=== PATIENT | male | born 1950 | race Caucasian/White ===

== ENCOUNTER 2019-03-15 09:57 | Inpatient (IN) | payer MEDICARE, BC ==
[2019-03-15] VITALS (32 sets, daily range): BP systolic 104–141; BP diastolic 59–82; PULSE 76–87; RESP 7–53; Ht 188 cm; Wt 106.9 kg
[~2019-03-15] VITALS: Ht 188 cm; Wt 106.9 kg
[~2019-03-15 09:57] MED LIST: CEFAZOLIN 1 GM INJ ONE; EPHEDrine 25 MG/5 ML SYG ONE; FENTAnyl 50 MCG/ML VIAL ONE; METOCLOPRAMIDE 10 MG INJ ONE; MIDAZOLAM 1 MG/ML 2 ML INJ ONE; ONDANSETRON 4 MG INJ ONE; PHENYLephrine (100 MCG/ML) 10ML SYG ONE; PROPOFOL 200 MG INJ ONE; ROCURONIUM 50 MG INJ ONE; SUCCINYLCHOLINE CHLORIDE 100 MG/5 ML SYG IV ONE
[2019-03-15] MEDS ORDERED: VANCOMYCIN 1 GM 250 ML IVPB ONE (10:00)
[2019-03-15] MEDS ORDERED: LACTATED RINGER'S 1,000 ML IV* ONE (10:00)
[2019-03-15] MEDS ORDERED: LORA1TAB PO (10:57)
[2019-03-15] MEDS ORDERED: PROV100 PO (10:58)
[2019-03-15] MEDS ORDERED: LEVO125T71 PO (10:58)
[2019-03-15] MEDS ORDERED: LUN2 PO (10:59)
[2019-03-15] MEDS ORDERED: ARIP5TAB14 PO (10:59)
[2019-03-15] MEDS ORDERED: DEXL60CA2 PO (11:00)
[2019-03-15] MEDS ORDERED: SIMV20TA PO (11:00)
[2019-03-15] MEDS ORDERED: GABA-526 PO ×2 (11:01)
[2019-03-15] MEDS ORDERED: MIRT30TA5 PO (11:02)
[2019-03-15] MEDS ORDERED: DOCU100T PO (11:03)
[2019-03-15] MEDS ORDERED: OXYC-431 PO (11:03)
[2019-03-15] MEDS ORDERED: TEST75GE TD (11:06)
[2019-03-15] MEDS ORDERED: SURGIFOAM POWDER 1 GM KIT ONE (11:56)
[2019-03-15] MEDS ORDERED: GELATIN SIZE 100 SPONGE ONE (11:56)
[2019-03-15] MEDS ORDERED: POLYMYXIN/BACITRACIN 1L IRRIG ONE (11:56)
[2019-03-15] MEDS ORDERED: THROMBIN (BOVINE) 5,000 UNIT VIAL TP ONE (11:56)
[2019-03-15] MEDS ORDERED: BUPIVACAINE 0.25%/EPI (SDV) 30 ML INJ ONE (11:56)
--- NOTE | 2019-03-15 12:08 | PREAC ---
Date/Time of Note Date/Time of Note DATE: 03/15/19 TIME: 12:04 Anesthesia Eval and Record Evaluation Time Pre-Procedure Interview DATE: 03/15/19 TIME: 12:04 Age 68 Sex male NPO: 8 hrs Preoperative diagnosis Degenerative Scoliosis and Stenosis Lumbar Planned procedure Lateral Approach Lumbar L2-3, L3-4 instrumented Fusion Past Medical History Past Medical History: Includes Cardio: Dyslipidemia Endo: Hypothyroid Pulm: Sleep Apnea, Home CPAP, Asthma Recreational drugs: Marijuana Surgery & Anesthesia Issues No known issue Meds Anticoagulation: No Beta Jorge A within 24 hr: No Reason Beta Jorge A not given: Pt. 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, 60.75 MG TD DAILY, EA 03/15/19 Docusate Sodium* (Dok*) 100 Mg Tablet, 100 MG PO BID, #60 CAP 03/15/19 Oxycodone HCl/Acetaminophen (Oxycodone-Acetaminophen 10-325) 1 Each Tablet, 1 EACH PO EVERY 4-6 HOURS PRN for PAIN LEVEL 1-5, TAB 03/15/19 Mirtazapine* (Mirtazapine*) 30 Mg Tablet, 30 MG PO HS, TAB 03/15/19 Gabapentin* (Gabapentin*) 600 Mg Tablet, 1800 MG PO QHS, #90 TAB 03/15/19 Gabapentin* (Gabapentin*) 600 Mg Tablet, 600 MG PO QAM, #60 TAB 03/15/19 Simvastatin* (Zocor*) 20 Mg Tablet, 20 MG PO QHS, #30 TAB 03/15/19 Dexlansoprazole (Dexilant) 60 Mg Dennis., 60 MG PO DAILY, #30 CAP 03/15/19 Eszopiclone (Lunesta) 2 Mg Tab, 2 MG PO HS PRN for INSOMNIA, TAB 03/15/19 Aripiprazole* (Abilify*) 5 Mg Tab, 5 MG PO DAILY, #30 TAB 03/15/19 Levothyroxine Sodium* (Levoxyl*) 125 Mcg Tablet, 125 MCG PO BEFORE BREAKFAST, #30 TAB 03/15/19 Modafinil* (Provigil*) 100 Mg Tablet, 400 MG PO QAM, TAB 03/15/19 Lorazepam* (Lorazepam*) 1 Mg Tablet, 1 MG PO TID PRN for ANXIETY, #30 TAB 03/15/19 Meds reviewed: Yes Allergies Coded Allergies: Penicillins (Verified Allergy, Severe, 03/15/19) adhesive tape (Verified Allergy, Unknown, 03/15/19) Allergies Reviewed: Yes Labs/Studies Labs Reviewed: Reviewed by anesthesiologist test: N/A Studies: ECG (n/a), CXR (n/a) Pre-procedure Exam Last vitals Vital Signs Date Temp Pulse Resp B/P (MAP) Pulse Ox O2 O2 Flow FiO2 Time Delivery Rate 03/15/19 97.9 16 123/68 95 11:35 (86) Airway: Adequate mouth opening, Adequate thyromental dist Mallampati: Mallampati II Teeth: Normal Lung: Normal Heart: Normal ASA Physical Status ASA physical status: 3 Emergency: None Planned Anesthetic General/MAC: ETT Planned Pain Management Parenteral pain med Pre-operative Attestations Prior to commencing anesthesia and surgery, the patient was re-evaluated, there was verification of: *The patient's identity *The results of appropriate recent lab work and preoperative vital signs *The above evaluation not changing prior to induction *Anesthetic plan, risk benefits, alternative and complications discussed with patient/family; questions answered; patient/family understands, accepts and wishes to proceed. DORI MONTANA MD Mar 15, 2019 12:08
[2019-03-15] MEDS: D5W-0.45 NACL + KCL 20 MEQ 1,000 ML IV SCH ×2 (12:37→20:37)
--- NOTE | 2019-03-15 12:37 | HPN ---
Date/Time of Note Date/Time of Note DATE: 03/15/19 TIME: 12:37 Interval H&P Admission Note Pt. seen H&P reviewed: No system changes ATA CAMP PA-C Mar 15, 2019 12:37
[2019-03-15] MEDS ORDERED: VANCOMYCIN 1 GM (PMX) 250 ML IVPB SCH (13:00)
[2019-03-15] MEDS ORDERED: NALOXONE (0.4 MG/ML) INJ IV PRN (13:00)
[2019-03-15] MEDS ORDERED: CEPASTAT LOZENGE MT PRN (13:00)
[2019-03-15] MEDS ORDERED: HYDROmorphONE 0.5 MG/0.5 ML SYG IV PRN (13:00)
[2019-03-15] MEDS ORDERED: BISACODYL 10 MG SUPP PR PRN (13:00)
[2019-03-15] MEDS ORDERED: DIPHENHYDRAMINE 25 MG CAP PO PRN (13:00)
[2019-03-15] MEDS ORDERED: ACETAMINOPHEN 325 MG TAB PO PRN (13:00)
[2019-03-15] MEDS ORDERED: ONDANSETRON 4 MG INJ IV PRN ×2 (13:00→15:00)
[2019-03-15] MEDS ORDERED: DIPHENHYDRAMINE 50 MG INJ IV PRN ×2 (13:00→15:00)
[2019-03-15] MEDS ORDERED: AL HYDROX/MG HYDROX/SIMETH 30 ML CUP PO PRN (13:00)
[2019-03-15] MEDS ORDERED: FENTAnyl 50 MCG/ML VIAL ONE (13:02)
[2019-03-15] MEDS ORDERED: LABETALOL HCL 20MG INJ ONE (13:02)
[2019-03-15] MEDS ORDERED: KETOROLAC 30 MG INJ ONE (14:22)
[2019-03-15] MEDS ORDERED: DEXAMETHASONE 4 MG/ML 5 ML INJ ONE (14:22)
[2019-03-15] MEDS ORDERED: ONDANSETRON 4 MG INJ ONE (14:22)
[2019-03-15] MEDS ORDERED: METOCLOPRAMIDE 10 MG INJ ONE (14:22)
[2019-03-15] MEDS ORDERED: SUGAMMADEX SODIUM 200 MG/2 ML VIAL IV ONE (14:48)
[2019-03-15] MEDS ORDERED: EPHEDrine SULFATE 50 MG/5 ML SYG IV PRN (15:00)
[2019-03-15] MEDS ORDERED: MEPERIDINE 25 MG INJ IV PRN (15:00)
[2019-03-15] MEDS ORDERED: METOCLOPRAMIDE 10 MG INJ IV PRN (15:00)
[2019-03-15] MEDS ORDERED: HYDROmorphONE 1 MG/5 ML IV SYRINGE IV PRN ×3 (15:00)
[2019-03-15] MEDS ORDERED: hydrALAzine 20 MG INJ IV PRN (15:00)
[2019-03-15] MEDS ORDERED: FENTAnyl 50 MCG/ML VIAL IV PRN ×3 (15:00)
[2019-03-15] MEDS ORDERED: LABETALOL HCL 20MG INJ IV PRN (15:00)
[2019-03-15] MEDS ORDERED: OXYCODONE/ACETAMINOPHEN (5/325) TAB PO PRN (15:00)
--- NOTE | 2019-03-15 15:42 | SIPON ---
Date/Time of Note Date/Time of Note DATE: 03/15/19 TIME: 15:41 Operative Report Preoperative Diagnosis Degenerative lumbar scoliosis Postoperative Diagnosis Degenerative lumbar scoliosis Operation/Procedure Performed Lumbar fusion Surgeon see signature line ortho assistant Janie Sanchez Anesthesia: general Estimated blood loss: 10 - 50 ml's Transfusion Required none Specimen Disc Grafts/Implants Cage Complications none SUNDEEP OROPEZA MD Mar 15, 2019 15:42
--- NOTE | 2019-03-15 16:01 | PAC ---
Date/Time of Note Date/Time of Note DATE: 03/15/19 TIME: 15:58 Post-Anesthesia Notes Post-Anesthesia Note Last documented vital signs Vital Signs Date Temp Pulse Resp B/P (MAP) Pulse Ox O2 O2 Flow FiO2 Time Delivery Rate 03/15/19 98.0 52 16 136/83 98 face mask 8 L 15:49 (92) 03/15/19 16 123/68 95 11:35 (86) Activity: WNL Respiratory function: WNL Cardiovascular function: WNL Mental status: Baseline Pain reasonably controlled: Yes Hydration appropriate: Yes Nausea/Vomiting absent: Yes DORI MONTANA MD Mar 15, 2019 16:01
--- NOTE | 2019-03-15 16:20 | OPR ---
DATE OF OPERATION: 03/15/2019 PREOPERATIVE DIAGNOSES: Degenerative lumbar scoliosis and stenosis with radiculopathy. POSTOPERATIVE DIAGNOSES: Degenerative lumbar scoliosis and stenosis with radiculopathy. OPERATION PERFORMED: 1. Anterior lumbar interbody fusion at L2-3 and L3-4. 2. Placement of intervertebral mechanical device at L2-3 and L3-4. 3. Use of allograft. 4. Use of C-arm fluoroscopy with interpretation without radiologist present. 5. Intraoperative neuromonitoring. PRIMARY SURGEON: John Mirza MD FINANCIAL REPORTING ADVISOR: Janie Sanchez PA-C NEED FOR MEN'S DESIGNER: During this spinal surgical procedure, my culture media laboratory assistant was used to retract and protect the spinal nerves and dural sac. My culture media laboratory assistant also employed the suction catheters to evacuate blood from the surgical field to improve visualization of the neural structures. The culture media laboratory assistant was medically necessary to facilitate the completion of the surgery in a safe and expeditious manner. [facility] regulations, as well as hospital bylaws, preclude the use of non-licensed health care personnel, such as operating room technicians, to perform these functions. IMPLANTS: 1. RTI Fortilink 11 x 50 x 22 mm cage with 6 degrees lordosis x2. 2. Biosphere. FINDINGS: Neuromonitoring at the start of the case revealed bilateral L2 amplitudes normal, bilateral L3 down 20%, bilateral L4 down 40%, bilateral L5 down 70%, bilateral S1 down 80% posterior tibia bilateral down 20%. At the end of the case posterior tibia remained unchanged. L3 remained unchanged. L4 was down 40%, L5 down 50%, S1 down 50% bilaterally. The patient had degenerative scoliosis with listhesis. ESTIMATED BLOOD LOSS: 50 mL. DRAINS: None. SPECIMENS: L2-L3 and L3-L4 disk sent. COMPLICATIONS OF PROCEDURES: None. ANESTHESIOLOGIST: Dr. Trever Gutierrez. TYPE OF ANESTHESIA: General. INDICATIONS FOR PROCEDURE: This 68-year-old gentleman with chronic low back pain in setting of degenerative scoliosis. He failed nonoperative measures; therefore, I recommended that he undergo the above procedure. Preoperatively, I discussed risks, benefits, and alternatives. He understood and wished to proceed. DESCRIPTION OF PROCEDURE IN DETAIL: The patient identified in the preoperative holding area, given vancomycin antibiotic, taken to the operating room where he was placed under general anesthesia. Neuromonitoring leads were placed, sequential compressive devices were applied. Ross catheter was induced. Remote intraoperative neuromonitoring was performed by Dr. Miller from 1120 hours until 1530 hours, to include SSEP, MEP, and EMG performed by [employer]. The patient was placed in the operative table in right lateral decubitus position. The patient was secured to the table and table was flexed to allow access to the spine. The left lateral flank was prepped, draped in usual fashion. Incision was then made laterally over the L2-3 and L3-4 levels. I then dissected down into the retroperitoneal space. I identified the psoas muscle. I placed a dilator through the psoas onto the L3-L4 level. I took imaging to confirm the placement. I used neuromonitoring along the way to make sure that there were no neural elements in the field. I then placed the appropriate size retractor after placing dilators. I then cleaned off the annulus and visually confirmed that there were no neural elements in the field. I also probed the area to confirm this as well. I then made an annulotomy followed by radical diskectomy. I prepared the endplates, placed various trials. I then chose appropriate graft height. I then took the appropriate size cage within which I placed allograft and impacted intervertebral mechanical device into the L3-4 level to complete the anterior lumbar interbody fusion at L3-4. I then turned my attention to the L2-3 level and repeated the procedure. Once a radical diskectomy was completed, I placed various trials and chose the appropriate graft height. I then took the appropriate size cage within which I placed allograft and I impacted intervertebral mechanical device into the L2-3 level to complete the anterior lumbar interbody fusion at L2-L3. Once the hardware was in place, I took AP and lateral images and I was happy with this hardware and alignment of the spine. I then irrigated the wound. Hemostasis was achieved. The retractors were removed. I closed the wound in layers. I closed the deep fascia with #1 Vicryl stitch. I closed the second layer of deep fascia with #1 Vicryl stitch. I closed subcutaneous tissue with a 2-0 Vicryl suture, 4-0 Monocryl closure was then performed. Dermabond was then applied. The patient then awakened from anesthesia and taken to the recovery in stable condition. Lap, sponge and needle counts were correct x2. There were no apparent complications during the procedure. The patient will be admitted to the orthopedic gutierrez for routine postoperative care. He should return to the operating room on 03/16/2019 for stage II. Dictated By: JOHN LEONARDO/LAITH Conf#: [id number] DID#: [id number] MTDD
[2019-03-15] MEDS: HYDROmorphONE 0.2 MG/ML PCA IV SCH (16:54)
--- NOTE | 2019-03-15 18:35 | CONS ---
Assessment/Plan Assessment/Plan Problems: (1) S/P lumbar and lumbosacral fusion by anterior technique Onset Date: ~ 03/15/2019 Status: Acute Comment: He is postop and doing well without evidence of surgical complications. Pending probably in the morning is a posterior approach fusion. At this time he is stable to proceed. (2) Lumbar spinal stenosis Status: Chronic Comment: Being resolved with surgery per Qualifiers: Qualified Codes: M48.062 - Spinal stenosis, lumbar region with neurogenic claudication (3) Anxiety disorder Status: Chronic Comment: Presently well controlled. Qualifiers: Qualified Codes: F41.1 - Generalized anxiety disorder (4) Dysthymia Status: Chronic Comment: Presently well controlled. (5) Chronic pain syndrome Status: Chronic Comment: Postop analgesia is doing well. (6) Testicular hypofunction Status: Chronic Comment: When he is after the second surgery will go ahead and give him a dosage testosterone supply in 8 to carry him through the procedures (7) Hyperlipidemia Status: Chronic Comment: Continue statin therapy Qualifiers: Qualified Codes: E78.00 - Pure hypercholesterolemia, unspecified (8) Acquired hypothyroidism Status: Chronic Comment: Continue replacement therapy (9) Obstructive sleep apnea Status: Chronic Comment: Noted. Consultation Date/Type/Reason Admit Date/Time Mar 15, 2019 at 09:57 Date of Consultation: Mar 15, 2019 Type of Consult Internal medicine Reason for Consultation Assistance with medical issues after surgery Requesting Provider: SUNDEEP OROPEZA MD Date/Time of Note DATE: 03/15/19 TIME: 18:25 Hx of Present Illness Gregarious and charming 68-year-old right-handed male admitted electively for lumbar spinal fusion. This is being done in 2 stages with the anterior approach first followed by the posterior approach during the same hospitalization. Patient is seen postoperatively. At this time he reports he is doing without complaints. Constitutional: no complaints (No fevers chills or sweats) Eyes: no complaints ENT: no complaints Respiratory: no complaints (No cough no wheezing no shortness of breath) Cardiovascular: no complaints (Chest pains no palpitations no PND no orthopnea) Gastrointestinal: no complaints Genitourinary: no complaints Musculoskeletal: back pain Skin: no complaints Neurologic: no complaints (Able to move his lower extremities) Endocrine: no complaints Lymphatic: no complaints Psychological: anxiety Past Medical History Medical History: GERD, high cholesterol, hypothyroid, other (Lumbar spinal stenosis; chronic pain syndrome; anxiety disorder with dysthymia; posttraumatic stress disorder; testicular hypofunction; benign prostatic hypertrophy) Home Meds Reported Medications Testosterone* (Androgel*) 1.62%-75gm Gel.punch press setter, 60.75 MG TD DAILY, EA 03/15/19 Docusate Sodium* (Dok*) 100 Mg Tablet, 100 MG PO BID, #60 CAP 03/15/19 Oxycodone HCl/Acetaminophen (Oxycodone-Acetaminophen 10-325) 1 Each Tablet, 1 EACH PO EVERY 4-6 HOURS PRN for PAIN LEVEL 1-5, TAB 03/15/19 Mirtazapine* (Mirtazapine*) 30 Mg Tablet, 30 MG PO HS, TAB 03/15/19 Gabapentin* (Gabapentin*) 600 Mg Tablet, 1800 MG PO QHS, #90 TAB 03/15/19 Gabapentin* (Gabapentin*) 600 Mg Tablet, 600 MG PO QAM, #60 TAB 03/15/19 Simvastatin* (Zocor*) 20 Mg Tablet, 20 MG PO QHS, #30 TAB 03/15/19 Dexlansoprazole (Dexilant) 60 Mg Cap.mp, 60 MG PO DAILY, #30 CAP 03/15/19 Eszopiclone (Lunesta) 2 Mg Tab, 2 MG PO HS PRN for INSOMNIA, TAB 03/15/19 Aripiprazole* (Abilify*) 5 Mg Tab, 5 MG PO DAILY, #30 TAB 03/15/19 Levothyroxine Sodium* (Levoxyl*) 125 Mcg Tablet, 125 MCG PO BEFORE BREAKFAST, #30 TAB 03/15/19 Modafinil* (Provigil*) 100 Mg Tablet, 400 MG PO QAM, TAB 03/15/19 Lorazepam* (Lorazepam*) 1 Mg Tablet, 1 MG PO TID PRN for ANXIETY, #30 TAB 03/15/19 Medications Medications; AndroGel; Abilify 5 mg daily; vitamin C 1 g daily; aspirin 325 mg a day; vitamin D 5000 units a day; vitamin B12 500 mcg p.o. daily; Dexilant 60 mg once a day; gabapentin 2400 mg nightly; levothyroxine 125 mcg once a day; simvastatin 20 mg once a day; Current Medications Potassium Chloride/Dextrose/ Sod Cl 1,000 ml @ 100 mls/hr Q10H IV ; Start 03/15/19 at 12:37 Hydromorphone HCl (Dilaudid) 0.2 mg Q1H PRN IV .BREAKTHROUGH PAIN; Start 03/15/19 at 13:00 Ondansetron HCl (Zofran Inj) 4 mg Q6H PRN IV NAUSEA/VOMITING; Start 03/15/19 at 13:00 Bisacodyl (Dulcolax Supp) 10 mg DAILY PRN MT .CONSTIPATION; Start 03/15/19 at 13:00 Docusate Sodium (Colace) 100 mg BID PO ; Start 03/15/19 at 21:00 Al Hydrox/Mg Hydrox/Simethicone (Mag-Al Plus) 15 ml Q6H PRN PO .CO NSTIPATION/DYSPEPSIA; Start 03/15/19 at 13:00 Acetaminophen (Tylenol Tab) 650 mg Q4H PRN PO TORRES OR TEMP GREATER THAN 101.3F; Start 03/15/19 at 13:00 Phenol (Cepastat Lozenge) 1 lozenge PRN PRN MT .SORE THROAT; Start 03/15/19 at 13:00 Diphenhydramine HCl (Benadryl) 25 mg Q6H PRN PO .ITCHING; Start 03/15/19 at 13:00 Diphenhydramine HCl (Benadryl) 25 mg Q6H PRN IV .ITCHING; Start 03/15/19 at 13:00 Naloxone HCl (Narcan) 0.2 mg Q2M PRN IV .RR 8 BREATHS/MIN OR LESS; Start 03/15/19 at 13:00 Hydromorphone HCl (Dilaudid VIBRATING SCREEN OPERATOR) VIBRATING SCREEN OPERATOR to be started in PACU Q4PCA IV Last administered on 03/15/19at 16:54; Admin Dose 6 MG; Start 03/15/19 at 13:00 Hydromorphone HCl (Dilaudid) 0.2 mg PACU PRN IV MILD PAIN 1-3; Start 03/15/19 at 15:00; Stop 03/15/19 at 21:00 Hydromorphone HCl (Dilaudid) 0.4 mg PACU PRN IV MOD PAIN 4-6; Start 03/15/19 at 15:00; Stop 03/15/19 at 21:00 Hydromorphone HCl (Dilaudid) 0.6 mg PACU PRN IV SEVERE PAIN 7-10; Start 03/15/19 at 15:00; Stop 03/15/19 at 21:00 Fentanyl (Sublimaze) 25 mcg PACU ORDER PRN IV MILD PAIN 1-3; Start 03/15/19 at 15:00; Stop 03/15/19 at 21:00 Fentanyl (Sublimaze) 50 mcg PACU ORDER PRN IV MOD PAIN 4-6 Last administered on 03/15/19at 16:45; Admin Dose 50 MCG; Start 03/15/19 at 15:00; Stop 03/15/19 at 21:00 Fentanyl (Sublimaze) 75 mcg PACU ORDER PRN IV SEVERE PAIN 7-10; Start 03/15/19 at 15:00; Stop 03/15/19 at 21:00 Oxycodone/ Acetaminophen (Percocet (5/ 325)) 1 tab PACU ORDER PRN PO .PAIN 1-5; Start 03/15/19 at 15:00; Stop 03/15/19 at 21:00 Ondansetron HCl (Zofran Inj) 4 mg PACU ORDER PRN IV NAUSEA/VOMITING Last administered on 03/15/19at 16:44; Admin Dose 4 MG; Start 03/15/19 at 15:00; Stop 03/15/19 at 21:00 Metoclopramide HCl (Reglan) 10 mg PACU ORDER PRN IV NAUSEA/VOMITING; Start 03/15/19 at 15:00; Stop 03/15/19 at 21:00 Labetalol HCl (Labetalol) 5 mg PACU ORDER PRN IV HIGH BLOOD PRESSURE; Start 03/15/19 at 15:00; Stop 03/15/19 at 21:00 Hydralazine HCl (Apresoline) 5 mg PACU ORDER PRN IV HIGH BLOOD PRESSURE; Start 03/15/19 at 15:00; Stop 03/15/19 at 21:00 Ephedrine Sulfate 5 mg PACU ORDER PRN IV BLOOD PRESSURE SUPPORT; Start 03/15/19 at 15:00; Stop 03/15/19 at 21:00 Meperidine HCl (Demerol) 25 mg PACU ORDER PRN IV .RIGORS Last administered on 03/15/19at 16:15; Admin Dose 25 MG; Start 03/15/19 at 15:00; Stop 03/15/19 at 21:00 Diphenhydramine HCl (Benadryl) 25 mg PACU ORDER PRN IV .PRURITUS; Start 03/15/19 at 15:00; Stop 03/15/19 at 21:00 Vancomycin HCl 250 ml @ 125 mls/hr Q12H IVPB ; Start 03/15/19 at 23:00; Stop 03/16/19 at 12:59 Allergies: Coded Allergies: Penicillins (Verified Allergy, Severe, 03/15/19) adhesive tape (Verified Allergy, Unknown, 03/15/19) Past Surgical History Past Surgical Hx: other (That is post TURP; status post left shoulder replacement therapy 2017 status post right shoulder replacement October 2018; status post rhinoplasty; status post hernia repair) Family History Significant Family History: no pertinent family hx Social History Tired [employer] x7 years; 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; lives with a spouse Alcohol Use: occasionally Smoking Status: Never smoker Drug Use: none Exam/Review of Systems Exam Vitals Vital Signs Date Temp Pulse Resp B/P (MAP) Pulse Ox O2 O2 Flow FiO2 Time Delivery Rate 03/15/19 97.6 80 18 125/63 94 17:26 (83) 03/15/19 Nasal 3.0 17:09 Cannula Constitutional: alert, oriented Head: normocephalic, atraumatic Eyes: nl conjunctiva, EOMI, nl lids, nl sclera Neck: supple, non-tender Respiratory: clear to auscultation, normal air movement Cardiovascular: regular rate and rhythm, nl pulses Gastrointestinal: soft, nl liver, spleen, non-tender Extremities: normal pulses Neurological: DRINKING WATER TECHNICIAN II-XII intact, nl mental status, nl speech, nl strength Medications Medication Current Medications Potassium Chloride/Dextrose/ Sod Cl 1,000 ml @ 100 mls/hr Q10H IV ; Start 03/15/19 at 12:37 Hydromorphone HCl (Dilaudid) 0.2 mg Q1H PRN IV .BREAKTHROUGH PAIN; Start 03/15/19 at 13:00 Ondansetron HCl (Zofran Inj) 4 mg Q6H PRN IV NAUSEA/VOMITING; Start 03/15/19 at 13:00 Bisacodyl (Dulcolax Supp) 10 mg DAILY PRN MT .CONSTIPATION; Start 03/15/19 at 13:00 Docusate Sodium (Colace) 100 mg BID PO ; Start 03/15/19 at 21:00 Al Hydrox/Mg Hydrox/Simethicone (Mag-Al Plus) 15 ml Q6H PRN PO .CONSTIPATION/DYSPEPSIA; Start 03/15/19 at 13:00 Acetaminophen (Tylenol Tab) 650 mg Q4H PRN PO TORRES OR TEMP GREATER THAN 101.3F; Start 03/15/19 at 13:00 Phenol (Cepastat Lozenge) 1 lozenge PRN PRN MT .SORE THROAT; Start 03/15/19 at 13:00 Diphenhydramine HCl (Benadryl) 25 mg Q6H PRN PO .ITCHING; Start 03/15/19 at 13:00 Diphenhydramine HCl (Benadryl) 25 mg Q6H PRN IV .ITCHING; Start 03/15/19 at 13:00 Naloxone HCl (Narcan) 0.2 mg Q2M PRN IV .RR 8 BREATHS/MIN OR LESS; Start 03/15/19 at 13:00 Hydromorphone HCl (Dilaudid VIBRATING SCREEN OPERATOR) VIBRATING SCREEN OPERATOR to be started in PACU Q4PCA IV Last administered on 03/15/19at 16:54; Admin Dose 6 MG; Start 03/15/19 at 13:00 Hydromorphone HCl (Dilaudid) 0.2 mg PACU PRN IV MILD PAIN 1-3; Start 03/15/19 at 15:00; Stop 03/15/19 at 21:00 Hydromorphone HCl (Dilaudid) 0.4 mg PACU PRN IV MOD PAIN 4-6; Start 03/15/19 at 15:00; Stop 03/15/19 at 21:00 Hydromorphone HCl (Dilaudid) 0.6 mg PACU PRN IV SEVERE PAIN 7-10; Start 03/15/19 at 15:00; Stop 03/15/19 at 21:00 Fentanyl (Sublimaze) 25 mcg PACU ORDER PRN IV MILD PAIN 1-3; Start 03/15/19 at 15:00; Stop 03/15/19 at 21:00 Fentanyl (Sublimaze) 50 mcg PACU ORDER PRN IV MOD PAIN 4-6 Last administered on 03/15/19at 16:45; Admin Dose 50 MCG; Start 03/15/19 at 15:00; Stop 03/15/19 at 21:00 Fentanyl (Sublimaze) 75 mcg PACU ORDER PRN IV SEVERE PAIN 7-10; Start 03/15/19 at 15:00; Stop 03/15/19 at 21:00 Oxycodone/ Acetaminophen (Percocet (5/ 325)) 1 tab PACU ORDER PRN PO .PAIN 1-5; Start 03/15/19 at 15:00; Stop 03/15/19 at 21:00 Ondansetron HCl (Zofran Inj) 4 mg PACU ORDER PRN IV NAUSEA/VOMITING Last administered on 03/15/19at 16:44; Admin Dose 4 MG; Start 03/15/19 at 15:00; Stop 03/15/19 at 21:00 Metoclopramide HCl (Reglan) 10 mg PACU ORDER PRN IV NAUSEA/VOMITING; Start 03/15/19 at 15:00; Stop 03/15/19 at 21:00 Labetalol HCl (Labetalol) 5 mg PACU ORDER PRN IV HIGH BLOOD PRESSURE; Start 03/15/19 at 15:00; Stop 03/15/19 at 21:00 Hydralazine HCl (Apresoline) 5 mg PACU ORDER PRN IV HIGH BLOOD PRESSURE; Start 03/15/19 at 15:00; Stop 03/15/19 at 21:00 Ephedrine Sulfate 5 mg PACU ORDER PRN IV BLOOD PRESSURE SUPPORT; Start 03/15/19 at 15:00; Stop 03/15/19 at 21:00 Meperidine HCl (Demerol) 25 mg PACU ORDER PRN IV .RIGORS Last administered on 03/15/19at 16:15; Admin Dose 25 MG; Start 03/15/19 at 15:00; Stop 03/15/19 at 21:00 Diphenhydramine HCl (Benadryl) 25 mg PACU ORDER PRN IV .PRURITUS; Start 03/15/19 at 15:00; Stop 03/15/19 at 21:00 Vancomycin HCl 250 ml @ 125 mls/hr Q12H IVPB ; Start 03/15/19 at 23:00; Stop 03/16/19 at 12:59 JAGUAR GRAVES MD Mar 15, 2019 18:35
[2019-03-15] MEDS: DOCUSATE SODIUM 100 MG CAP PO SCH (20:37)
[2019-03-15] MEDS ORDERED: DOCUSATE SODIUM 100 MG CAP PO SCH (21:00)
[2019-03-15] MEDS ORDERED: ZOLPIDEM 5 MG TAB PO PRN (23:00)
[2019-03-15] MEDS: GABAPENTIN 300 MG CAP PO SCH (23:03)
[2019-03-15] MEDS: MIRTAZAPINE 15 MG TAB PO SCH (23:03)
[2019-03-15] MEDS: VANCOMYCIN 1 GM (PMX) 250 ML IVPB SCH (23:04)
[2019-03-15] MEDS: ATORVASTATIN 10 MG TAB PO SCH (23:57)
[2019-03-16] VITALS (25 sets, daily range): BP systolic 95–169; BP diastolic 55–77; PULSE 64–107; RESP 15–19
[2019-03-16] MEDS: HYDROmorphONE 0.2 MG/ML PCA IV SCH ×3 (03:40→22:32)
[2019-03-16] MEDS: PANTOPRAZOLE (EC) 40 MG TAB PO SCH (04:44)
[2019-03-16] MEDS: LEVOTHYROXINE 125 MCG TAB PO SCH (04:45)
[2019-03-16] MEDS ORDERED: DESFLURANE 15 MIN ONE (07:00)
[2019-03-16] MEDS ORDERED: SURGIFOAM POWDER 1 GM KIT ONE ×2 (07:02→12:12)
[2019-03-16] MEDS ORDERED: GELATIN SIZE 100 SPONGE ONE (07:02)
[2019-03-16] MEDS ORDERED: BUPIVACAINE 0.25%/EPI (SDV) 30 ML INJ ONE (07:03)
[2019-03-16] MEDS ORDERED: CA CHLORIDE (GM) 10% 10 ML INJ ONE (07:03)
[2019-03-16] MEDS ORDERED: HEPARIN 1000 UNITS/ML 10 ML INJ ONE (07:03)
[2019-03-16] MEDS ORDERED: THROMBIN (BOVINE) 5,000 UNIT VIAL TP ONE ×3 (07:03→12:13)
[2019-03-16] MEDS ORDERED: CEFAZOLIN 1 GM INJ ONE ×2 (07:03→07:09)
[2019-03-16] MEDS ORDERED: POLYMYXIN/BACITRACIN 1L IRRIG ONE (07:03)
--- NOTE | 2019-03-16 07:03 | PREAC ---
Date/Time of Note Date/Time of Note DATE: 03/16/19 TIME: 07:01 Anesthesia Eval and Record Evaluation Time Pre-Procedure Interview DATE: 03/16/19 TIME: 07:01 Age 68 Sex male NPO: 8 hrs Preoperative diagnosis L2-S1 DISC DISEASE , DEGENERATIVE SCOLIOSIS Planned procedure ALIF L4-S1 AND POSTERIOR INSTRUMENTED FUSION L2-S1 Past Medical History Past Medical History: Includes Cardio: Dyslipidemia Pulm: Sleep Apnea, Home CPAP, Asthma GI: GERD Psych: Depression, Anxiety Surgery & Anesthesia Issues No known issue Meds Anticoagulation: No Beta Jorge A within 24 hr: No Reason Beta Jorge A not given: Pt. not on B-Jorge A Reported Medications Testosterone* (Androgel*) 1.62%-75gm Gel.cns, 60.75 MG TD DAILY, EA 03/15/19 Docusate Sodium* (Dok*) 100 Mg Tablet, 100 MG PO BID, #60 CAP 03/15/19 Oxycodone HCl/Acetaminophen (Oxycodone-Acetaminophen 10-325) 1 Each Tablet, 1 EACH PO EVERY 4-6 HOURS PRN for PAIN LEVEL 1-5, TAB 03/15/19 Mirtazapine* (Mirtazapine*) 30 Mg Tablet, 30 MG PO HS, TAB 03/15/19 Gabapentin* (Gabapentin*) 600 Mg Tablet, 1800 MG PO QHS, #90 TAB 03/15/19 Gabapentin* (Gabapentin*) 600 Mg Tablet, 600 MG PO QAM, #60 TAB 03/15/19 Simvastatin* (Zocor*) 20 Mg Tablet, 20 MG PO QHS, #30 TAB 03/15/19 Dexlansoprazole (Dexilant) 60 Mg Dennis., 60 MG PO DAILY, #30 CAP 03/15/19 Eszopiclone (Lunesta) 2 Mg Tab, 2 MG PO HS PRN for INSOMNIA, TAB 03/15/19 Aripiprazole* (Abilify*) 5 Mg Tab, 5 MG PO DAILY, #30 TAB 03/15/19 Levothyroxine Sodium* (Levoxyl*) 125 Mcg Tablet, 125 MCG PO BEFORE BREAKFAST, #30 TAB 03/15/19 Modafinil* (Provigil*) 100 Mg Tablet, 400 MG PO QAM, TAB 03/15/19 Lorazepam* (Lorazepam*) 1 Mg Tablet, 1 MG PO TID PRN for ANXIETY, #30 TAB 03/15/19 Current Medications Potassium Chloride/Dextrose/ Sod Cl 1,000 ml @ 100 mls/hr Q10H IV Last administered on 03/15/19at 20:37; Admin Dose 100 MLS/HR; Start 03/15/19 at 12:37 Hydromorphone HCl (Dilaudid) 0.2 mg Q1H PRN IV .BREAKTHROUGH PAIN; Start 03/15/19 at 13:00 Ondansetron HCl (Zofran Inj) 4 mg Q6H PRN IV NAUSEA/VOMITING; Start 03/15/19 at 13:00 Bisacodyl (Dulcolax Supp) 10 mg DAILY PRN DE .CONSTIPATION; Start 03/15/19 at 13:00 Docusate Sodium (Colace) 100 mg BID PO Last administered on 03/15/19at 20:37; Admin Dose 100 MG; Start 03/15/19 at 21:00 Al Hydrox/Mg Hydrox/Simethicone (Mag-Al Plus) 15 ml Q6H PRN PO .CONSTIPATION/DYSPEPSIA; Start 03/15/19 at 13:00 Acetaminophen (Tylenol Tab) 650 mg Q4H PRN PO TORRES OR TEMP GREATER THAN 101.3F; Start 03/15/19 at 13:00 Phenol (Cepastat Lozenge) 1 lozenge PRN PRN MT .SORE THROAT Last administered on 03/15/19at 20:37; Admin Dose 1 LOZENGE; Start 03/15/19 at 13:00 Diphenhydramine HCl (Benadryl) 25 mg Q6H PRN PO .ITCHING; Start 03/15/19 at 13:00 Diphenhydramine HCl (Benadryl) 25 mg Q6H PRN IV .ITCHING; Start 03/15/19 at 13:00 Naloxone HCl (Narcan) 0.2 mg Q2M PRN IV .RR 8 BREATHS/MIN OR LESS; Start 03/15/19 at 13:00 Hydromorphone HCl (Dilaudid DIESEL POWER SHOVEL OPERATOR) DIESEL POWER SHOVEL OPERATOR to be started in PACU Q4PCA IV Last administered on 03/16/19at 03:40; Admin Dose 6 MG; Start 03/15/19 at 13:00 Vancomycin HCl 250 ml @ 125 mls/hr Q12H IVPB Last administered on 03/15/19at 23:04; Admin Dose 125 MLS/HR; Start 03/15/19 at 23:00; Stop 03/16/19 at 12:59 Aripiprazole (Abilify) 5 mg DAILY PO ; Start 03/16/19 at 09:00 Gabapentin (Neurontin) 1,800 mg QHS PO Last administered on 03/15/19at 23:03; Admin Dose 1,800 MG; Start 03/15/19 at 21:00 Gabapentin (Neurontin) 600 mg QAM PO ; Start 03/16/19 at 09:00 Levothyroxine Sodium (Synthroid) 125 mcg BEFORE BREAKFAST PO ; Start 03/16/19 at 07:00 Lorazepam (Ativan) 1 mg TID PRN PO ANXIETY; Start 03/15/19 at 19:00 Mirtazapine (Remeron) 30 mg HS PO Last administered on 03/15/19at 23:03; Admin Dose 30 MG; Start 03/15/19 at 21:00 Pantoprazole (Protonix Tab) 40 mg DAILY@06 PO ; Start 03/16/19 at 06:00 Zolpidem Tartrate (Ambien) 5 mg HS PRN PO INSOMNIA; Start 03/15/19 at 23:00 Atorvastatin Calcium (Lipitor) 10 mg DAILY@21 PO Last administered on 03/15/19at 23:57; Admin Dose 10 MG; Start 03/15/19 at 23:00 Meds reviewed: Yes Allergies Coded Allergies: Penicillins (Verified Allergy, Severe, 03/15/19) adhesive tape (Verified Allergy, Unknown, 03/15/19) Allergies Reviewed: Yes Labs/Studies Labs Reviewed: Reviewed by anesthesiologist Result Diagram: 03/16/198 03/16/19437 Laboratory Tests 03/16/19 04:38 test: N/A Studies: ECG (NL), CXR (NAPD) Pre-procedure Exam Last vitals Vital Signs Date Temp Pulse Resp B/P (MAP) Pulse Ox O2 O2 Flow FiO2 Time Delivery Rate 03/16/19 18 05:11 03/16/19 97.8 64 109/56 95 04:03 (73) 03/15/19 Nasal 3.0 19:00 Cannula Airway: Adequate mouth opening, Adequate thyromental dist Mallampati: Mallampati II Teeth: Normal Lung: Normal Heart: Normal ASA Physical Status ASA physical status: 2 Emergency: None Planned Anesthetic General/MAC: ETT, A Line Planned Pain Management Parenteral pain med Pre-operative Attestations Prior to commencing anesthesia and surgery, the patient was re-evaluated, there was verification of: *The patient's identity *The results of appropriate recent lab work and preoperative vital signs *The above evaluation not changing prior to induction *Anesthetic plan, risk benefits, alternative and complications discussed with patient/family; questions answered; patient/family understands, accepts and wishes to proceed. Moo Escamilla M.D. Mar 16, 2019 07:03
[2019-03-16] MEDS ORDERED: VANCOMYCIN 1 GM INJ ONE (07:04)
[2019-03-16] MEDS ORDERED: PROPOFOL 20 ML ONE (07:09)
[2019-03-16] MEDS ORDERED: ROCURONIUM 50 MG INJ ONE (07:09)
[2019-03-16] MEDS ORDERED: GLYCOPYRROLATE 0.4 MG INJ ONE (07:09)
[2019-03-16] MEDS ORDERED: NEOSTIGMINE 3 MG/3 ML SYRINGE ONE (07:09)
[2019-03-16] MEDS ORDERED: ONDANSETRON 4 MG INJ ONE (07:10)
[2019-03-16] MEDS ORDERED: DEXAMETHASONE 4 MG/ML 5 ML INJ ONE (07:10)
[2019-03-16] MEDS ORDERED: MIDAZOLAM 1 MG/ML 2 ML INJ ONE (07:10)
[2019-03-16] MEDS ORDERED: MEPERIDINE 25 MG INJ IV PRN (07:30)
[2019-03-16] MEDS ORDERED: LABETALOL HCL 20MG INJ IV PRN (07:30)
[2019-03-16] MEDS ORDERED: OXYCODONE/ACETAMINOPHEN (5/325) TAB PO PRN ×2 (07:30)
[2019-03-16] MEDS ORDERED: hydrALAzine 20 MG INJ IV PRN (07:30)
[2019-03-16] MEDS ORDERED: FENTAnyl 50 MCG/ML VIAL IV PRN ×2 (07:30)
[2019-03-16] MEDS ORDERED: HYDROmorphONE 1 MG/5 ML IV SYRINGE IV PRN ×3 (07:30)
[2019-03-16] MEDS ORDERED: ONDANSETRON 4 MG INJ IV PRN (07:30)
[2019-03-16] MEDS ORDERED: TRIMETHOBENZAMIDE 100 MG/ML VIAL IM PRN (07:30)
[2019-03-16] MEDS ORDERED: DIPHENHYDRAMINE 50 MG INJ IV PRN (07:30)
[2019-03-16] MEDS ORDERED: MIDAZOLAM 1 MG/ML 2 ML INJ IV PRN (07:30)
[2019-03-16] MEDS ORDERED: EPHEDrine SULFATE 50 MG/5 ML SYG IV PRN (07:30)
[2019-03-16] MEDS ORDERED: ALBUTEROL 0.083% (NEB) 2.5 MG/3 ML AMP HHN PRN (07:30)
[2019-03-16] MEDS ORDERED: IPRATROPIUM (NEB) 0.5 MG/2.5 ML AMP HHN PRN (07:30)
--- NOTE | 2019-03-16 08:33 | PN ---
Date/Time of Note Date/Time of Note DATE: 03/16/19 TIME: 08:33 Assessment/Plan Lines/Catheters IV Catheter Type (from Nrsg): Peripheral IV Assessment/Plan Assessment/Plan Postop day #1 status post stage I. Patient will go to operating room for stage II today. He currently reports no pain. Subjective 24 Hr Interval Summary Reports no pain Exam/Review of Systems Vital Signs Vitals Vital Signs Date Temp Pulse Resp B/P (MAP) Pulse Ox O2 O2 Flow FiO2 Time Delivery Rate 03/16/19 18 05:11 03/16/19 97.8 64 109/56 95 04:03 (73) 03/15/19 Nasal 3.0 19:00 Cannula Intake and Output 03/15/19 03/15/19 03/16/19 1515:00 23:00 07:00 IntakeIntake Total 1800 ml 950 ml OutputOutput Total 280 ml 2350 ml BalanceBalance 1520 ml -1400 ml Exam Free Text/Dictation Good thigh strength Results Result Diagram: 03/16/19 0438 03/16/19 0438 SUNDEEP OROPEZA MD Mar 16, 2019 08:33
[2019-03-16] MEDS: D5W-0.45 NACL + KCL 20 MEQ 1,000 ML IV SCH ×3 (08:37→20:18)
[2019-03-16] MEDS ORDERED: hydrALAzine 20 MG INJ ONE (08:37)
[2019-03-16] MEDS: ARIPIPRAZOLE 5 MG TAB PO SCH (09:00)
[2019-03-16] MEDS: DOCUSATE SODIUM 100 MG CAP PO SCH ×2 (09:00→20:19)
[2019-03-16] MEDS: GABAPENTIN 300 MG CAP PO SCH ×2 (09:00→20:20)
--- NOTE | 2019-03-16 10:30 | SIPON ---
Date/Time of Note Date/Time of Note DATE: 03/16/19 TIME: 10:30 Operative Report Preoperative Diagnosis Degenerative lumbar scoliosis Postoperative Diagnosis Degenerative lumbar scoliosis Operation/Procedure Performed Multilevel lumbar fusion Surgeon see signature line field research assistant Janie wheeler Anesthesia: general Estimated blood loss: other Transfusion Required Via Cell Saver Specimen Disc Grafts/Implants Cage and screws Complications none SUNDEEP OROPEZA MD Mar 16, 2019 10:30
[2019-03-16] MEDS: VANCOMYCIN 1 GM (PMX) 250 ML IVPB SCH ×2 (11:00→20:19)
[2019-03-16] MEDS ORDERED: ALBUMIN HUMAN 5% 500 ML ONE (13:19)
--- NOTE | 2019-03-16 13:19 | OPR ---
DATE OF OPERATION: 03/15/2019 PREOPERATIVE DIAGNOSIS: Degenerative lumbar scoliosis, status post anterior fusion at L2-3 and L3-4. POSTOPERATIVE DIAGNOSIS: Degenerative lumbar scoliosis, status post anterior fusion at L2-3 and L3-41. PROCEDURE: 1. Anterior lumbar anterior body fusion at L4-5 and L5-S1. 2. Placement of anterior hardware at L4-L5 and L5-S1. 3. Placement of intervertebral mechanical device at L4-L5 and L5-S1. 4. Use of allograft. 5. Use of C-arm fluoroscopy with interpretation without radiologist present. 6. Intraoperative neuromonitoring. 7. Application of a NuShield. IMPLANTS: 1. Kyocera Tesera 13 x 38 x 25 mm interbody cage at L4-L5 with lordosis and 25 mm screws. 2. An 11 mm 38 x 25 mm lordotic cage at L5-S1 with 25 mm screws. 3. Biosphere. PRIMARY SURGEON: John Mirza MD. CO-SURGEON: Maria Eugenia Batista MD SECOND C PROGRAMMER: Janie Sanchez PA-C NEED FOR COSURGEON: Co-surgeon was required in order to perform the vascular access. This is standard of care. FINDINGS: Neuromonitoring at the start of the case revealed posterior tibial amplitude down 20% at the start of the case. Ulnar down 20% at the start of the case. L2-L3 were down 20% bilaterally at the start of the case. L4 was down 50%, bilateral at the start of the case. L5 was down 70%, bilateral at the start of the case. S1 was down 80% bilaterally at the start of the case. At the end of the case posterior tibial and ulnar nerves were normal. The L2 and L3 remained down 20%. L4 was down 30%. L5 and S1 were down or down 40%. The patient had degenerative scoliosis with significant collapse at L4-5 and L5-S1. ESTIMATED BLOOD LOSS: 450 mL. DRAINS: None. SPECIMENS: L4-L5 and L5-S1 disk. COMPLICATIONS OF PROCEDURES: None. ANESTHESIOLOGIST: Moo Escamilla MD TYPE OF ANESTHESIA: General. INDICATIONS FOR PROCEDURE: This is a 68-year-old gentleman with degenerative lumbar scoliosis. He failed nonoperative measures; therefore, it was recommended he undergo the above procedure. Risks, benefits, and alternatives were discussed with the patient. He understood and wished to proceed. DESCRIPTION OF PROCEDURE IN DETAIL: The patient was identified in the preoperative holding area, given vancomycin antibiotics in the operating room where he was successfully placed under general anesthesia. Neuromonitoring leads were placed, sequential compressive devices were applied. Arterial line was placed. The patient already had a Ross catheter. Neuromonitoring leads were placed. Remote intraoperative neuromonitoring was performed by Dr. Miller from 0720 hours until 1040 hours to include SSEP, MEP, and EMG performed by [employer]. Patient was placed on the operating table in supine position. All bony prominences were well padded. The abdomen was prepped and draped in the usual sterile fashion. Dr. Batista performed an anterior retroperitoneal approach to the spine from the left. He will dictate the approach. Once he had identified the anterior spine, I placed a bent spinal needle into the L5-S1 level and took AP and lateral images to confirm the correct level. I made an annulotomy followed by radical diskectomy. The level was quite collapsed and therefore I had to use dilators and distractors in order to open up the disk space. Once this was done, I completed the endplate preparation. I placed various trials and chose the appropriate graft height. I then took the titanium cage within which I placed allograft and I impacted it in intervertebral mechanical device into the L5-S1 level to complete the anterior lumbar interbody fusion at L5-S1. I then placed an anterior plate and screws at L5-S1. I next turned my attention to the L4-L5 level. Similarly here, a radical diskectomy was performed in a similar fashion. Again, I did open up the disk space. Once this was done, I placed various trials and chose the appropriate graft height. I then took the titanium cage within which I placed allograft and I impacted intervertebral mechanical device into the L4-L5 level to complete the anterior lumbar interbody fusion at this level. I then placed anterior plate and screws at L4-L5. Once this was done, I took AP and lateral images and I was happy with placement of the hardware and alignment of the spine. We then irrigated the wound. Dr. Batista proceeded to close the wound. He will dictate this separately. NuShield device was applied anteriorly and after wound closure, we obtained 4 quadrant abdominal films and there was no evidence of any retained foreign objects. There were no complications during this stage. He will be placed on the operating room table in prone position for the next stage, which will be dictated separately. Lap, sponge, instrument counts correct x2. Dictated By: JOHN MIRZA MD BB/LAITH Conf#: [id number] DID#: [id number] CC: JANIE SANCHEZ; MARIA EUGENIA BATISTA MD;*EndCC* MTDD
[2019-03-16] MEDS ORDERED: SUGAMMADEX SODIUM 200 MG/2 ML VIAL IV ONE (13:35)
[2019-03-16] MEDS ORDERED: METOCLOPRAMIDE 10 MG INJ ONE (13:37)
--- NOTE | 2019-03-16 13:43 | OPR ---
DATE OF OPERATION: 03/15/2019 PREOPERATIVE DIAGNOSIS: Degenerative disk disease, lumbosacral spine. POSTOPERATIVE DIAGNOSIS: Degenerative disk disease, lumbosacral spine. OPERATION PERFORMED: Anterior retroperitoneal exposure, interbody fusion L4-L5, repair of left commo n iliac vein. SURGEON: Javan Batista MD CO-SURGEON: John Oropeza MD ANESTHESIA: General. ESTIMATED BLOOD LOSS: 400 mL. INFORMED CONSENT: Risks, benefits, complications, alternative therapies, high-risk nature of the ope ration fully explained to the patient and family, consent obtained. Risks and benefits that were exp lained to the patient and the family included but not limited to bleeding, infection, damage to bowel , damage to ureter, wound infection, wound dehiscence, DVT, PE, loss of limb, loss of life, high-risk nature of the operation fully explained and stressed to the patient. All questions answered. OPERATIVE TECHNIQUE: Patient was placed in supine position, prepped and draped in usual sterile fash ion. Time-out was called, antibiotics were given. I made a 10 cm incision midline from the umbilicu s all the way down to the symphysis pubis. Incision was taken down to subcutaneous tissue which was then opened using electrocautery. Left anterior rectus sheath was opened in the direction of the wou nd, slightly to the left side of the midline. Posterior rectus sheath was incised superiorly about 3 cm. Bookwalter retractor was placed retracting the bowel contents to the right, left rectus muscle to the left. I dissected the left common iliac artery and vein, external iliac artery and vein. The iliolumbar vessels were ligated using titanium clips and the lowest segmental vessels on the left si de were ligated using titanium clips. Middle sacral vessels were ligated using titanium clips. Ther e was a small amount of bleeding from the left common iliac vein which was about 1 mm. I had to repa ir this with a [id number] 6-0 Prolene suture. Exposure for L5-S1 was obtained by retracting L5- S1 was obtained between the right and left common iliac artery and vein. Exposure for L4-L5 was obta ined by retracting the left common iliac artery and vein, vena cava and aorta to the right. We proce eded with the diskectomy and placement of the new cage. Please refer to Dr. Oropeza's dictation fo r the details of that operation. After all x-rays were satisfactorily read by Dr. Oropeza, needle count and sponge count was correct. The anterior rectus sheath was closed using a #1 Vicryl suture i n running fashion with interrupted sutures in the middle. The wound was irrigated again and closed i n 2 layers of 2-0 Vicryl suture for subcu and subcuticular skin closure. Patient tolerated procedure well. Dictated By: JAVAN BATISTA MD FM/NTS Conf#: [id number] DID#: [id number] CC: JOHN OROPEZA MD;*EndCC*
[2019-03-16] MEDS ORDERED: VANCOMYCIN 1 GM (PMX) 250 ML IVPB SCH (14:00)
[2019-03-16] MEDS ORDERED: AL HYDROX/MG HYDROX/SIMETH 30 ML CUP PO PRN (14:00)
[2019-03-16] MEDS ORDERED: NALOXONE (0.4 MG/ML) INJ IV PRN (14:00)
[2019-03-16] MEDS ORDERED: ACETAMINOPHEN 325 MG TAB PO PRN (14:00)
--- NOTE | 2019-03-16 14:04 | PAC ---
Date/Time of Note Date/Time of Note DATE: 03/16/19 TIME: 14:04 Post-Anesthesia Notes Post-Anesthesia Note Last documented vital signs Vital Signs Date Temp Pulse Resp B/P (MAP) Pulse Ox O2 O2 Flow FiO2 Time Delivery Rate 03/16/19 98.3 14:02 03/16/19 18 05:11 03/16/19 64 109/56 95 04:03 (73) 03/15/19 Nasal 3.0 19:00 Cannula Activity: WNL Respiratory function: WNL Cardiovascular function: WNL Mental status: Baseline Pain reasonably controlled: Yes Hydration appropriate: Yes Nausea/Vomiting absent: Yes Moo Escamilla M.D. Mar 16, 2019 14:04
[2019-03-16] MEDS: FENTAnyl 50 MCG/ML VIAL IV PRN ×2 (14:27→14:32)
--- NOTE | 2019-03-16 14:47 | OPR ---
DATE OF OPERATION: 03/15/2019 PREOPERATIVE DIAGNOSES: Status post anterior fusion at L2 to L3, L3 to L4, L4 to L5, L5 to S1 for de generative scoliosis. POSTOPERATIVE DIAGNOSES: Status post anterior fusion at L2 to L3, L3 to L4, L4 to L5, L5 to S1 for d egenerative scoliosis. PROCEDURES: 1. Posterolateral instrumentation at L2 to L3, L3 to L4, L4 to L5 and L5 to S1. 3. Posterolateral fusion at L2 to L3, L3 to L4, L4 to L5 and L5 to S1. 4. Use of navigation for instrumentation. 5. Allograft. 6. Use of C-arm fluoroscopy with interpretation without radiologist present. 7. Intraoperative neuromonitoring. PRIMARY SURGEON: John Mirza MD DOCUMENTATION CLERK: Janie Sanhcez PA-C NEED FOR TAIL WORKER: During this spinal surgical procedure, my it administrative assistant was used to retract and protect the spinal nerves and dural sac. My it administrative assistant also employed the suction catheters to ev acuate blood from the surgical field to improve visualization of the neural structures. The assistan t was medically necessary to facilitate the completion of the surgery in a safe and expeditious [facility]. [facility] regulations, as well as hospital bylaws, preclude the use of non-licensed [facility] care personnel, such as operating room technicians, to perform these functions. IMPLANTS: 1. RTI streamline pedicle screws 6.5 x 45 mm at L4 bilaterally, L5 on the left and at S1 bilaterally , 6.5 x 45 mm at L2 and L3 bilaterally. 2. Biosphere. FINDINGS: Neuromonitoring at the start of the case revealed posterior tibial signal down 10%. Ulnar was down 10% at the start of the case. L2, L3, L4 was down 10% bilaterally at the start of the case . L5 was down 30% bilaterally at the start of the case. S1 was down 40% bilaterally at the start of the case. At the end of the case, posterior tibial, ulnar and L2 remained unchanged, L3 and L4 were normal bilaterally, L5 was down 20% on the left, 10% on the right, S1 was down 20% on the left, 10% on the right. ESTIMATED BLOOD LOSS: 125 mL. DRAINS: None. SPECIMENS: None. COMPLICATIONS OF PROCEDURES: None. ANESTHESIOLOGIST: Moo Escamilla MD TYPE OF ANESTHESIA: General. INDICATIONS FOR PROCEDURE: This is a 68-year-old gentleman with degenerative scoliosis. He complete d the anterior fusion which is dictated separately and now presented for the posterior procedure. DESCRIPTION FOR PROCEDURE: He was placed on the operating table in prone position over a Manny fram e. All bony prominences were well padded. The back was then prepped and draped in usual fashion. [facility] intraoperative neuromonitoring was performed by Dr. Miller from 11:10 until 13:40 to include SSEP, MEP and EMG performed by [facility] ([facility]: [place]). The incision sites were identified and marked. I placed two Schanz pins into the right PSIS for the navigation system. I utilized the navigation syst em as well as biplanar C-arm fluoroscopy in order to place the pedicle screws which were placed bilat erally at L2, bilateral at L3, bilaterally at L4, on the left at L5 and bilaterally at S1. I then wa s unable to clearly visualize the right L5 pedicle shadow; therefore I elected not to place a screw t here. Once that all the screws were placed, I estimated each of the screws and there was no evidence of cortical breach. I passed a 130 mm yair on the left and 140 mm yair on the right with set screws p laced and tightened per manufacture specifications. Once all the hardware was in, I took AP and late ral images and I was happy with the placement of the hardware and alignment of lumbar spine. The wou nd was then copiously irrigated. I then prepared the posterolateral gutters and placed allograft for posterolateral fusion at L2 to L3, L3 to L4, L4 to L5, L5 to S1 bilaterally. Once this was done, I closed the incision, closed deep fascia with #1 Vicryl stitch and the subcutaneous tissue with 2-0 Vi cryl stitch. Dermabond was then applied followed by sterile dressings. The patient was awakened fro m anesthesia and taken to the recovery in stable condition. Lap, sponge and instrument counts were c orrect x2. There were no apparent complications during the procedure. The patient will be admitted to the [facility] for routine postoperative care to include pain co ntrol, neurovascular checks, antibiotics and physical therapy. Dictated By: JOHN LEONARDO/LAITH Conf#: [id number] DID#: [id number] CC: JAGUAR GRAVES MD;*EndCC*
--- NOTE | 2019-03-16 17:36 | CONS ---
Assessment/Plan Assessment/Plan Problems: (1) S/P lumbar fusion Onset Date: ~ 03/16/2019 Status: Acute Comment: He is successfully postop from a posterior approach fusion and doing well. He has been reminded and counseled on using incentive spirometer. Expect good prognostic outcome (2) S/P lumbar and lumbosacral fusion by anterior technique Onset Date: ~ 03/15/2019 Status: Acute Comment: No complications from this approach doing well. (3) Anxiety disorder Status: Chronic Comment: This is a modest issue for this gentleman we will continue to care for him Qualifiers: Anxiety disorder type: generalized anxiety disorder Qualified Codes: F41.1 - Generalized anxiety disorder (4) Chronic pain syndrome Status: Chronic Comment: Presently on EMPLOYMENT CLERK (5) Obstructive sleep apnea Status: Chronic Comment: Noted. (6) Hyperlipidemia Status: Chronic Comment: Stable on treatment. Qualifiers: Hyperlipidemia type: pure hypercholesterolemia Qualified Codes: E78.00 - Pure hypercholesterolemia, unspecified (7) Acquired hypothyroidism Status: Chronic Comment: Continue with replacement therapy. (8) Benign prostatic hyperplasia Status: Chronic Comment: Noted. Qualifiers: Lower urinary tract symptom presence: symptoms absent Qualified Codes: N40.0 - Benign prostatic hyperplasia without lower urinary tract symptoms Consultation Date/Type/Reason Admit Date/Time Mar 15, 2019 at 09:57 Initial Consult Date 03/15/19 Type of Consult Internal medicine Reason for Consultation Postoperative assistance after sequential lumbar spinal fusion Requesting Provider: SUNDEEP OROPEZA MD Date/Time of Note DATE: 03/16/19 TIME: 17:32 24 HR Interval Summary Free Text/Dictation Patient is sedated and narcotize at this time but able to converse and fully oriented Constitutional: no complaints Detailed Summary Respiratory: no complaints Cardiovascular: no complaints Gastrointestinal: no complaints Exam/Review of Systems Exam Vitals Vital Signs Date Temp Pulse Resp B/P (MAP) Pulse Ox O2 O2 Flow FiO2 Time Delivery Rate 03/16/19 98.4 102 144/71 99 Nasal 2.0 17:15 (95) Cannula 03/16/19 19 15:55 Intake and Output 03/15/19 03/15/19 03/16/19 1515:00 23:00 07:00 IntakeIntake Total 1800 ml 950 ml OutputOutput Total 280 ml 2350 ml BalanceBalance 1520 ml -1400 ml Constitutional: alert, oriented Respiratory: clear to auscultation, normal air movement Cardiovascular: regular rate and rhythm, nl pulses Results Result Diagram: 03/16/198 03/16/198 Results 24hrs Laboratory Tests Test 03/16/19 04:38 White Blood Count 7.7 Red Blood Count 3.65 L Hemoglobin 11.4 L Hematocrit 33.8 L Mean Corpuscular Volume 92.6 Mean Corpuscular Hemoglobin 31.2 Mean Corpuscular Hemoglobin Concent 33.7 Red Cell Distribution Width 14.1 Platelet Count 160 Mean Platelet Volume 8.6 Immature Granulocytes % 0.300 Neutrophils % 73.7 Lymphocytes % 14.0 L Monocytes % 10.9 Eosinophils % 0.8 Basophils % 0.3 Nucleated Red Blood Cells % 0.0 Immature Granulocytes # 0.020 Neutrophils # 5.7 Lymphocytes # 1.1 Monocytes # 0.8 Eosinophils # 0.1 Basophils # 0.0 Nucleated Red Blood Cells # 0.0 Sodium Level 140 Potassium Level 4.4 Chloride Level 107 Carbon Dioxide Level 31 Anion Gap 2 L Blood Urea Nitrogen 22 H Creatinine 0.79 Est Glomerular Filtrat Rate mL/min > 60 Glucose Level 117 Calcium Level 8.4 Magnesium Level 2.0 Medications Medication Current Medications Aripiprazole (Abilify) 5 mg DAILY PO ; Start 03/16/19 at 09:00 Gabapentin (Neurontin) 1,800 mg QHS PO Last administered on 03/15/19at 23:03; Admin Dose 1,800 MG; Start 03/15/19 at 21:00 Gabapentin (Neurontin) 600 mg QAM PO ; Start 03/16/19 at 09:00 Levothyroxine Sodium (Synthroid) 125 mcg BEFORE BREAKFAST PO ; Start 03/16/19 at 07:00 Lorazepam (Ativan) 1 mg TID PRN PO ANXIETY; Start 03/15/19 at 19:00 Mirtazapine (Remeron) 30 mg HS PO Last administered on 03/15/19at 23:03; Admin Dose 30 MG; Start 03/15/19 at 21:00 Pantoprazole (Protonix Tab) 40 mg DAILY@06 PO ; Start 03/16/19 at 06:00 Zolpidem Tartrate (Ambien) 5 mg HS PRN PO INSOMNIA; Start 03/15/19 at 23:00 Atorvastatin Calcium (Lipitor) 10 mg DAILY@21 PO Last administered on 03/15/19at 23:57; Admin Dose 10 MG; Start 03/15/19 at 23:00 Hydromorphone HCl (Dilaudid) 0.2 mg PACU PRN IV MILD PAIN 1-3; Start 03/16/19 at 07:30; Stop 03/16/19 at 18:00 Hydromorphone HCl (Dilaudid) 0.4 mg PACU PRN IV MOD PAIN 4-6; Start 03/16/19 at 07:30; Stop 03/16/19 at 18:00 Hydromorphone HCl (Dilaudid) 0.6 mg PACU PRN IV SEVERE PAIN 7-10; Start 03/16/19 at 07:30; Stop 03/16/19 at 18:00 Fentanyl (Sublimaze) 25 mcg PACU ORDER PRN IV MILD PAIN 1-3; Start 03/16/19 at 07:30; Stop 03/16/19 at 18:00 Fentanyl (Sublimaze) 50 mcg PACU ORDER PRN IV MOD PAIN 4-6 Last administered on 03/16/19at 14:32; Admin Dose 50 MCG; Start 03/16/19 at 07:30; Stop 03/16/19 at 18:00 Fentanyl (Sublimaze) 75 mcg PACU ORDER PRN IV SEVERE PAIN 7-10; Start 03/16/19 at 07:30; Stop 03/16/19 at 18:00 Oxycodone/ Acetaminophen (Percocet (5/ 325)) 1 tab PACU ORDER PRN PO .PAIN 1-5; Start 03/16/19 at 07:30; Stop 03/16/19 at 18:00 Oxycodone/ Acetaminophen (Percocet (5/ 325)) 2 tab PACU ORDER PRN PO .PAIN 6-10; Start 03/16/19 at 07:30; Stop 03/16/19 at 18:00 Ondansetron HCl (Zofran Inj) 4 mg PACU ORDER PRN IV NAUSEA/VOMITING Last admin istered on 03/16/19at 14:10; Admin Dose 4 MG; Start 03/16/19 at 07:30; Stop 03/16/19 at 18:00 Trimethobenzamide HCl (Tigan) 200 mg PACU ORDER PRN IM NAUSEA/VOMITING; Start 03/16/19 at 07:30; Stop 03/16/19 at 18:00 Labetalol HCl (Labetalol) 5 mg PACU ORDER PRN IV HIGH BLOOD PRESSURE; Start 03/16/19 at 07:30; Stop 03/16/19 at 18:00 Hydralazine HCl (Apresoline) 5 mg PACU ORDER PRN IV HIGH BLOOD PRESSURE; Start 03/16/19 at 07:30; Stop 03/16/19 at 18:00 Ephedrine Sulfate 5 mg PACU ORDER PRN IV BLOOD PRESSURE SUPPORT; Start 03/16/19 at 07:30; Stop 03/16/19 at 18:00 Albuterol (Proventil 0.083% (Neb)) 2.5 mg PACU ORDER PRN HHN .WHEEZING; Start 03/16/19 at 07:30; Stop 03/16/19 at 18:00 Ipratropium [place] (Atrovent 0.02% (Neb)) 0.5 mg PACU ORDER PRN HHN .WHEEZING; Start 03/16/19 at 07:30; Stop 03/16/19 at 18:00 Meperidine HCl (Demerol) 25 mg PACU ORDER PRN IV .RIGORS Last administered on 03/16/19at 14:09; Admin Dose 25 MG; Start 03/16/19 at 07:30; Stop 03/16/19 at 18:00 Diphenhydramine HCl (Benadryl) 25 mg PACU ORDER PRN IV .PRURITUS; Start 03/16/19 at 07:30; Stop 03/16/19 at 18:00 Midazolam HCl (Versed) 0.5 mg PACU ORDER PRN IV .ANXIETY; Start 03/16/19 at 07:30; Stop 03/16/19 at 18:00 Potassium Chloride/Dextrose/ Sod Cl 1,000 ml @ 100 mls/hr Q10H IV ; Start 03/16/19 at 13:57 Oxycodone/ Acetaminophen (Endocet (10/ 325)) 1 tab Q4H PRN PO .PAIN 5-10; Start 03/16/19 at 14:00 Oxycodone/ Acetaminophen (Endocet (10/ 325)) 2 tab Q4H PRN PO .PAIN 6-10; Start 03/16/19 at 14:00 Hydromorphone HCl (Dilaudid) 0.2 mg Q1H PRN IV .BREAKTHROUGH PAIN; Start 03/16/19 at 14:00 Ondansetron HCl (Zofran Inj) 4 mg Q6H PRN IV NAUSEA/VOMITING; Start 03/16/19 at 14:00 Bisacodyl (Dulcolax Supp) 10 mg DAILY PRN [place] .CONSTIPATION; Start 03/16/19 at 14:00 Docusate Sodium (Colace) 100 mg BID PO ; Start 03/16/19 at 21:00 Al Hydrox/Mg Hydrox/Simethicone (Mag-Al Plus) 15 ml Q6H PRN PO .CONSTIPATION/DYSPEPSIA; Start 03/16/19 at 14:00 Acetaminophen (Tylenol Tab) 650 mg Q4H PRN PO TORRES OR TEMP GREATER THAN 101.3F; Start 03/16/19 at 14:00 Cyclobenzaprine HCl (Flexeril) 5 mg TID PRN PO .MUSCLE SPASM; Start 03/16/19 at 14:00 Phenol (Cepastat Lozenge) 1 lozenge PRN PRN [place] .SORE THROAT; Start 03/16/19 at 14:00 Diphenhydramine HCl (Benadryl) 25 mg Q6H PRN PO .ITCHING; Start 03/16/19 at 14:00 Diphenhydramine HCl (Benadryl) 25 mg Q6H PRN IV .ITCHING; Start 03/16/19 at 14:00 Naloxone HCl (Narcan) 0.2 mg Q2M PRN IV .RR 8 BREATHS/MIN OR LESS; Start 03/16/19 at 14:00 Hydromorphone HCl (Dilaudid EMPLOYMENT CLERK) EMPLOYMENT CLERK to be started in PACU Q4PCA IV Last administered on 03/16/19at 14:40; Admin Dose 6 MG; Start 03/16/19 at 14:00 Miscellaneous Information 1. Hold EMPLOYMENT CLERK at 1,000... EMPLOYMENT CLERK IV ; Start 03/16/19 at 14:00 Vancomycin HCl 250 ml @ 125 mls/hr Q12H IVPB ; Start 03/16/19 at 20:00; Stop 03/17/19 at 09:59 JAGUAR GRAVES MD Mar 16, 2019 17:36
[2019-03-16] MEDS: MIRTAZAPINE 15 MG TAB PO SCH (20:20)
[2019-03-16] MEDS: ATORVASTATIN 10 MG TAB PO SCH (20:20)
[2019-03-16] MEDS: CYCLOBENZAPRINE 10 MG TAB PO PRN (21:43)
[2019-03-16] MEDS: LORAZEPAM 1 MG TAB PO PRN (22:09)
[2019-03-16] MEDS: HYDROmorphONE 0.5 MG/0.5 ML SYG IV PRN (22:20)
[2019-03-17] MEDS: LEVOTHYROXINE 125 MCG TAB PO SCH (05:20)
[2019-03-17] MEDS: PANTOPRAZOLE (EC) 40 MG TAB PO SCH (05:20)
[2019-03-17] MEDS: HYDROmorphONE 0.2 MG/ML PCA IV SCH ×5 (05:22→23:22)
[2019-03-17 08:12] VITALS: BP 113/64; PULSE 116; RESP 20
[2019-03-17] MEDS: GABAPENTIN 300 MG CAP PO SCH ×2 (09:24→20:30)
[2019-03-17] MEDS: DOCUSATE SODIUM 100 MG CAP PO SCH ×2 (09:24→20:32)
[2019-03-17] MEDS: VANCOMYCIN 1 GM (PMX) 250 ML IVPB SCH (09:24)
[2019-03-17] MEDS: D5W-0.45 NACL + KCL 20 MEQ 1,000 ML IV SCH ×2 (09:24→19:57)
[2019-03-17] MEDS: ARIPIPRAZOLE 5 MG TAB PO SCH (09:24)
[2019-03-17] MEDS: TESTOSTERONE 1% GEL 5 GM PACKET TOP SCH (09:25)
--- NOTE | 2019-03-17 10:41 | CONS ---
Assessment/Plan Assessment/Plan Problems: (1) Lumbar spinal stenosis Status: Chronic Comment: Clinically stable. Management per surgical team. Qualifiers: Neurogenic claudication status: with neurogenic claudication Qualified Codes: M48.062 - Spinal stenosis, lumbar region with neurogenic claudication (2) Postoperative anemia Status: Acute Comment: Asymptomatic. No transfusion indicated at this time. Monitor for now. (3) Chronic pain syndrome Status: Chronic Comment: Management per surgical team (4) Anxiety disorder Status: Chronic Comment: controlled at this time. Psychiatric medications resumed post surgery Qualifiers: Anxiety disorder type: generalized anxiety disorder Qualified Codes: F41.1 - Generalized anxiety disorder (5) Obstructive sleep apnea Status: Chronic Comment: Resume modafinil (6) Testicular hypofunction Status: Chronic Comment: Testosterone reinstated today in gel form (7) Hyperlipidemia Status: Chronic Comment: No issues. On lipid lowering agent Qualifiers: Hyperlipidemia type: pure hypercholesterolemia Qualified Codes: E78.00 - Pure hypercholesterolemia, unspecified (8) Acquired hypothyroidism Status: Chronic Comment: On thyroid replacement. Consultation Date/Type/Reason Admit Date/Time Mar 15, 2019 at 09:57 Initial Consult Date 03/15/19 Type of Consult Internal Medicine Reason for Consultation Post surgical medical management Requesting Provider: SUNDEEP OROPEZA MD Date/Time of Note DATE: 03/17/19 TIME: 10:29 24 HR Interval Summary Free Text/Dictation Tired after physical therapy, and pain currently 04/26 Exam/Review of Systems Exam Vitals Vital Signs Date Temp Pulse Resp B/P (MAP) Pulse Ox O2 O2 Flow FiO2 Time Delivery Rate 03/17/19 98.7 116 20 113/64 94 08:12 (80) 03/16/19 Nasal 2.0 18:40 Cannula Intake and Output 03/16/19 03/16/19 03/17/19 1515:00 23:00 07:00 IntakeIntake Total 3150 ml 250 ml 700 ml OutputOutput Total 950 ml 600 ml 850 ml BalanceBalance 2200 ml -350 ml -150 ml Constitutional: alert, oriented, well developed Neck: supple Respiratory: clear to auscultation Cardiovascular: regular rate and rhythm Gastrointestinal: soft Musculoskeletal: nl extremities to inspection Extremities: normal pulses Results Result Diagram: 03/17/19 0437 03/17/19 0437 Results 24hrs Laboratory Tests Test 03/17/19 04:37 03/17/19 06:53 White Blood Count 8.4 Red Blood Count 3.12 L Hemoglobin 9.7 L Hematocrit 29.8 L Mean Corpuscular Volume 95.5 Mean Corpuscular Hemoglobin 31.1 Mean Corpuscular Hemoglobin Concent 32.6 Red Cell Distribution Width 14.7 H Platelet Count 135 L Mean Platelet Volume 9.0 Immature Granulocytes % 0.500 H Neutrophils % 71.5 Lymphocytes % 14.4 L Monocytes % 10.8 Eosinophils % 2.4 Basophils % 0.4 Nucleated Red Blood Cells % 0.0 Immature Granulocytes # 0.040 H Neutrophils # 6.0 Lymphocytes # 1.2 Monocytes # 0.9 Eosinophils # 0.2 Basophils # 0.0 Nucleated Red Blood Cells # 0.0 Sodium Level 139 Potassium Level 4.1 Chloride Level 105 Carbon Dioxide Level 32 H Anion Gap 2 L Blood Urea Nitrogen 14 Creatinine 0.84 Est Glomerular Filtrat Rate mL/min > 60 Glucose Level 122 Calcium Level 8.3 L Magnesium Level 1.8 Lab Scanned Report REFER[facility] Medications Medication Current Medications Aripiprazole (Abilify) 5 mg DAILY PO Last administered on 03/17/19 09:24; Admin Dose 5 MG; Start 03/16/19 at 09:00 Gabapentin (Neurontin) 1,800 mg QHS PO Last administered on 03/16/19 20:20; Admin Dose 1,800 MG; Start 03/15/19 at 21:00 Gabapentin (Neurontin) 600 mg QAM PO Last administered on 03/17/19 09:24; Admin Dose 600 MG; Start 03/16/19 at 09:00 Levothyroxine Sodium (Synthroid) 125 mcg BEFORE BREAKFAST PO Last administered on 03/17/19 05:20; Admin Dose 125 MCG; Start 03/16/19 at 07:00 Lorazepam (Ativan) 1 mg TID PRN PO ANXIETY Last administered on 03/16/19 22:09; Admin Dose 1 MG; Start 03/15/19 at 19:00 Mirtazapine (Remeron) 30 mg HS PO Last administered on 03/16/19 20:20; Admin Dose 30 MG; Start 03/15/19 at 21:00 Pantoprazole (Protonix Tab) 40 mg DAILY@06 PO Last administered on 03/17/19 05:20; Admin Dose 40 MG; Start 03/16/19 at 06:00 Zolpidem Tartrate (Ambien) 5 mg HS PRN PO INSOMNIA; Start 03/15/19 at 23:00 Atorvastatin Calcium (Lipitor) 10 mg DAILY@21 PO Last administered on 03/16/19at 20:20; Admin Dose 10 MG; Start 03/15/19 at 23:00 Potassium Chloride/Dextrose/ Sod Cl 1,000 ml @ 100 mls/hr Q10H IV Last adm inistered on 03/17/19at 09:24; Admin Dose 100 MLS/HR; Start 03/16/19 at 13:57 Oxycodone/ Acetaminophen (Endocet (10/ 325)) 1 tab Q4H PRN PO .PAIN 5-10; Start 03/16/19 at 14:00 Oxycodone/ Acetaminophen (Endocet (10/ 325)) 2 tab Q4H PRN PO .PAIN 6-10; Start 03/16/19 at 14:00 Hydromorphone HCl (Dilaudid) 0.2 mg Q1H PRN IV .BREAKTHROUGH PAIN Last administered on 03/16/19at 22:20; Admin Dose 0.2 MG; Start 03/16/19 at 14:00 Ondansetron HCl (Zofran Inj) 4 mg Q6H PRN IV NAUSEA/VOMITING; Start 03/16/19 at 14:00 Bisacodyl (Dulcolax Supp) 10 mg DAILY PRN [place] .CONSTIPATION; Start 03/16/19 at 14:00 Docusate Sodium (Colace) 100 mg BID PO Last administered on 03/17/19at 09:24; Admin Dose 100 MG; Start 03/16/19 at 21:00 Al Hydrox/Mg Hydrox/Simethicone (Mag-Al Plus) 15 ml Q6H PRN PO .CONSTIPATION/DYSPEPSIA; Start 03/16/19 at 14:00 Acetaminophen (Tylenol Tab) 650 mg Q4H PRN PO TORRES OR TEMP GREATER THAN 101.3F; Start 03/16/19 at 14:00 Cyclobenzaprine HCl (Flexeril) 5 mg TID PRN PO .MUSCLE SPASM Last administered on 03/16/19at 21:43; Admin Dose 5 MG; Start 03/16/19 at 14:00 Phenol (Cepastat Lozenge) 1 lozenge PRN PRN [place] .SORE THROAT; Start 03/16/19 at 14:00 Diphenhydramine HCl (Benadryl) 25 mg Q6H PRN PO .ITCHING; Start 03/16/19 at 14:00 Diphenhydramine HCl (Benadryl) 25 mg Q6H PRN IV .ITCHING; Start 03/16/19 at 14:00 Naloxone HCl (Narcan) 0.2 mg Q2M PRN IV .RR 8 BREATHS/MIN OR LESS; Start at 14:00 Miscellaneous Information 1. Hold CARBON BRUSH MAKER at 1,000... CARBON BRUSH MAKER IV ; Start 03/16/19 at 14:00 Testosterone (Androgel) 5 gm DAILY TOP Last administered on 03/17/19at 09:25; Admin Dose 5 GM; Start 03/17/19 at 09:00 Hydromorphone HCl (Dilaudid CARBON BRUSH MAKER) CARBON BRUSH MAKER to be started in PACU Q4PCA IV Last administered on 03/17/19at 09:41; Admin Dose 6 MG; Start 03/16/19 at 23:00 MERRY ESGURA MD March 17, 2019 10:39
[2019-03-17] MEDS: MODAFINIL 200 MG TAB PO SCH (12:00)
--- NOTE | 2019-03-17 12:03 | PN ---
Date/Time of Note Date/Time of Note DATE: 03/17/19 TIME: 12:02 Assessment/Plan Lines/Catheters IV Catheter Type (from Nrsg): Peripheral IV Ross in Place (from Nrsg): Yes Assessment/Plan Assessment/Plan Patient is doing quite well after surgery. He has already walked down the caal. We will continue routine postoperative care. Subjective 24 Hr Interval Summary Mild back pain Exam/Review of Systems Vital Signs Vitals Vital Signs Date Temp Pulse Resp B/P (MAP) Pulse Ox O2 O2 Flow FiO2 Time Delivery Rate 03/17/19 98.7 116 20 113/64 94 08:12 (80) 03/16/19 Nasal 2.0 18:40 Cannula Intake and Output 03/16/19 03/16/19 03/17/19 1515:00 23:00 07:00 IntakeIntake Total 3150 ml 250 ml 700 ml OutputOutput Total 950 ml 600 ml 850 ml BalanceBalance 2200 ml -350 ml -150 ml Exam Free Text/Dictation Neuro intact Results Result Diagram: 03/17/19 0437 03/17/19 0437 SUNDEEP OROPEZA MD March 17, 2019 12:03
[2019-03-17 14:55] VITALS: BP 113/64; PULSE 106; RESP 20
[2019-03-17] MEDS: ONDANSETRON 4 MG INJ IV PRN (17:21)
[2019-03-17] MEDS: CYCLOBENZAPRINE 10 MG TAB PO PRN (18:57)
[2019-03-17 20:08] VITALS: BP 138/72; PULSE 104; RESP 18
[2019-03-17] MEDS: MIRTAZAPINE 15 MG TAB PO SCH (20:30)
[2019-03-17] MEDS: DIPHENHYDRAMINE 25 MG CAP PO PRN (20:31)
[2019-03-17] MEDS: ATORVASTATIN 10 MG TAB PO SCH (20:31)
[2019-03-17] MEDS: LORAZEPAM 1 MG TAB PO PRN (23:19)
[2019-03-18] VITALS (10 sets, daily range): BP systolic 103–131; BP diastolic 59–74; PULSE 90–112; RESP 17–22
[2019-03-18] MEDS: CEPASTAT LOZENGE MT PRN (04:54)
[2019-03-18] MEDS: PANTOPRAZOLE (EC) 40 MG TAB PO SCH (04:55)
[2019-03-18] MEDS: CYCLOBENZAPRINE 10 MG TAB PO PRN ×2 (04:55→12:55)
[2019-03-18] MEDS: LEVOTHYROXINE 125 MCG TAB PO SCH (05:00)
[2019-03-18] MEDS: D5W-0.45 NACL + KCL 20 MEQ 1,000 ML IV SCH ×2 (05:01→15:37)
[2019-03-18] MEDS: GABAPENTIN 300 MG CAP PO SCH ×2 (08:49→20:27)
[2019-03-18] MEDS: DOCUSATE SODIUM 100 MG CAP PO SCH ×2 (08:49→20:27)
[2019-03-18] MEDS: MODAFINIL 200 MG TAB PO SCH (08:49)
[2019-03-18] MEDS: ARIPIPRAZOLE 5 MG TAB PO SCH (08:49)
[2019-03-18] MEDS: TESTOSTERONE 1% GEL 5 GM PACKET TOP SCH (09:33)
[2019-03-18] MEDS: OXYCODONE/ACETAMINOPHEN (10/325) TAB PO PRN ×4 (09:55→23:44)
--- NOTE | 2019-03-18 15:54 | RADRPT ---
Vent Rate: 108 bpm RR Interval: 556 msec OR Interval: 172 msec QRS Duration: 97 msec QT Interval: 257 msec QTC Interval: 345 msec P-R-T [place]: 50 - -36 - 59 degrees Sinus tachycardia...rate> 99 Left axis deviation...QRS axis (-30,-90) Consider anterior infarct...Q >30mS in V2-V5 Electronically Signed By: Rashawn Sevilla
[2019-03-18] MEDS ORDERED: BETHANECHOL 25 MG TAB PO ONE (16:30)
--- NOTE | 2019-03-18 16:52 | CONS ---
Assessment/Plan Assessment/Plan Problems: (1) SOB (shortness of breath) Status: Acute Comment: Changes noted to ECG when compared to pre-op ECG. Will check Troponin level. If positive contact Cardiology service. A-a gradient high at 67. Concern for PE in a post op patient. Will order CT angiogram. (2) Postoperative anemia Status: Acute Comment: Stable. (3) Lumbar spinal stenosis Status: Chronic Comment: Management per Dr. Mirza Qualifiers: Neurogenic claudication status: with neurogenic claudication Qualified Codes: M48.062 - Spinal stenosis, lumbar region with neurogenic claudication (4) Anxiety disorder Status: Chronic Comment: No issues at this time Qualifiers: Anxiety disorder type: generalized anxiety disorder Qualified Codes: F41.1 - Generalized anxiety disorder (5) Testicular hypofunction Status: Chronic Comment: On replacement (6) Acquired hypothyroidism Status: Chronic Comment: On replacement Consultation Date/Type/Reason Admit Date/Time Mar 15, 2019 at 09:57 Initial Consult Date 03/15/19 Type of Consult Internal Medicine Reason for Consultation post op managment of non surgical issues Requesting Provider: SUNDEEP MIRZA MD Date/Time of Note DATE: 03/18/19 TIME: 16:45 24 HR Interval Summary Free Text/Dictation Acute episode of shortness of breath after PT this AM. Overall feeling better now. Per RN no urine output after removal of Ross catheter. Exam/Review of Systems Exam Vitals Vital Signs Date Temp Pulse Resp B/P (MAP) Pulse Ox O2 O2 Flow FiO2 Time Delivery Rate 03/18/19 98.0 107 20 131/63 94 Nasal 2.0 15:59 (85) Cannula Intake and Output 03/17/19 03/17/19 03/18/19 1515:00 23:00 07:00 IntakeIntake Total 300 ml 1050 ml 275 ml OutputOutput Total 852 ml 1400 ml BalanceBalance 300 ml 198 ml -1125 ml Constitutional: alert, oriented, obese Neck: supple Respiratory: clear to auscultation Cardiovascular: other (sinus tachycardia) Gastrointestinal: soft Musculoskeletal: nl extremities to inspection Neurological: nl mental status, nl speech, nl strength Results Result Diagram: 03/18/19 0446 03/18/196 Results 24hrs Laboratory Tests Test 03/18/19 04:46 03/18/19 10:16 White Blood Count 8.5 Red Blood Count 2.96 L Hemoglobin 9.4 L Hematocrit 28.4 L Mean Corpuscular Volume 95.9 Mean Corpuscular Hemoglobin 31.8 Mean Corpuscular Hemoglobin Concent 33.1 Red Cell Distribution Width 14.4 Platelet Count 127 L Mean Platelet Volume 8.8 Immature Granulocytes % 0.500 H Neutrophils % 76.0 Lymphocytes % 10.4 L Monocytes % 9.0 Eosinophils % 3.7 Basophils % 0.4 Nucleated Red Blood Cells % 0.0 Immature Granulocytes # 0.040 H Neutrophils # 6.4 Lymphocytes # 0.9 Monocytes # 0.8 Eosinophils # 0.3 Basophils # 0.0 Nucleated Red Blood Cells # 0.0 Sodium Level 136 Potassium Level 4.1 Chloride Level 101 Carbon Dioxide Level 33 H Anion Gap 2 L Blood Urea Nitrogen 9 Creatinine 0.72 Est Glomerular Filtrat Rate mL/min > 60 Glucose Level 113 Calcium Level 8.8 Magnesium Level 1.9 Blood Gas Specimen Source Blood arterial Arterial Blood Date Drawn 03/18/2019 10:49:49 AM Arterial Blood pH (Temp corrected) 7.399 Arterial Blood pCO2 (Temp correct) 46.8 H Arterial Blood pO2 (Temp corrected) 67.7 L Arterial Blood HCO3 28.3 H Arterial Blood Base Excess 3.0 Arterial Blood Oxygen Saturation 93.3 L Juve Test ACCEPTAB Arterial Blood Gas Puncture Site Right Radial Arterial Blood Carboxyhemoglobin 0.3 Arterial Blood Methemoglobin 0.3 Blood Gas A-a O2 Differential 69.5 H Oxyhemoglobin Percent 92.7 L Blood Gas Temperature 37.0 Blood Gas Modality NASAL CANNULA FiO2 27.0 Blood Gas Notified Whom TM Blood Gas Notified Time 03/18/2019 11:00:20 AM Medications Medication Current Medications Aripiprazole (Abilify) 5 mg DAILY PO Last administered on 03/18/19 08:49; Admin Dose 5 MG; Start 03/16/19 at 09:00 Gabapentin (Neurontin) 1,800 mg QHS PO Last administered on 03/17/19 20:30; Admin Dose 1,800 MG; Start 03/15/19 at 21:00 Gabapentin (Neurontin) 600 mg QAM PO Last administered on 03/18/19 08:49; Admin Dose 600 MG; Start 03/16/19 at 09:00 Levothyroxine Sodium (Synthroid) 125 mcg BEFORE BREAKFAST PO Last administered on 03/18/19 05:00; Admin Dose 125 MCG; Start 03/16/19 at 07:00 Lorazepam (Ativan) 1 mg TID PRN PO ANXIETY Last administered on 03/17/19 23:19; Admin Dose 1 MG; Start 03/15/19 at 19:00 Mirtazapine (Remeron) 30 mg HS PO Last administered on 03/17/19 20:30; Admin Dose 30 MG; Start 03/15/19 at 21:00 Pantoprazole (Protonix Tab) 40 mg DAILY@06 PO Last administered on 03/18/19 04:55; Admin Dose 40 MG; Start 03/16/19 at 06:00 Zolpidem Tartrate (Ambien) 5 mg HS PRN PO INSOMNIA; Start 03/15/19 at 23:00 Atorvastatin Calcium (Lipitor) 10 mg DAILY@21 PO Last administered on 03/17/19 20:31; Admin Dose 10 MG; Start 03/15/19 at 23:00 Potassium Chloride/Dextrose/ Sod Cl 1,000 ml @ 100 mls/hr Q10H IV Last administered on 03/18/19 05:01; Admin Dose 100 MLS/HR; Start 03/16/19 at 13:57 Oxycodone/ Acetaminophen (Endocet (10/ 325)) 1 tab Q4H PRN PO .PAIN 5-10; Start 03/16/19 at 14:00 Oxycodone/ Acetaminophen (Endocet (10/ 325)) 2 tab Q4H PRN PO .PAIN 6-10 Last administered on 03/18/19 13:48; Admin Dose 2 TAB; Start 03/16/19 at 14:00 Hydromorphone HCl (Dilaudid) 0.2 mg Q1H PRN IV .BREAKTHROUGH PAIN Last administered on 03/16/19 22:20; Admin Dose 0.2 MG; Start 03/16/19 at 14:00 Ondansetron HCl (Zofran Inj) 4 mg Q6H PRN IV NAUSEA/VOMITING Last administered on 03/17/19 17:21; Admin Dose 4 MG; Start 03/16/19 at 14:00 Bisacodyl (Dulcolax Supp) 10 mg DAILY PRN [place] .CONSTIPATION; Start 03/16/19 at 14:00 Docusate Sodium (Colace) 100 mg BID PO Last administered on 03/18/19 08:49; Admin Dose 100 MG; Start 03/16/19 at 21:00 Al Hydrox/Mg Hydrox/Simethicone (Mag-Al Plus) 15 ml Q6H PRN PO .CONSTIPATION/DYSPEPSIA; Start 03/16/19 at 14:00 Acetaminophen (Tylenol Tab) 650 mg Q4H PRN PO TORRES OR TEMP GREATER THAN 101.3F; Start 03/16/19 at 14:00 Cyclobenzaprine HCl (Flexeril) 5 mg TID PRN PO .MUSCLE SPASM Last administered on 03/18/19 12:55; Admin Dose 5 MG; Start 03/16/19 at 14:00 Phenol (Cepastat Lozenge) 1 lozenge PRN PRN [place] .SORE THROAT Last administered on 03/18/19 04:54; Admin Dose 1 LOZENGE; Start 03/16/19 at 14:00 Diphenhydramine HCl (Benadryl) 25 mg Q6H PRN PO .ITCHING Last administered on 03/17/19 20:31; Admin Dose 25 MG; Start 03/16/19 at 14:00 Diphenhydramine HCl (Benadryl) 25 mg Q6H PRN IV .ITCHING; Start 03/16/19 at 1 4:00 Naloxone HCl (Narcan) 0.2 mg Q2M PRN IV .RR 8 BREATHS/MIN OR LESS; Start 03/16/19 at 14:00 Miscellaneous Information 1. Hold HEAT SET OPERATOR at 1,000... HEAT SET OPERATOR IV ; Start 03/16/19 at 14:00 Testosterone (Androgel) 5 gm DAILY TOP Last administered on 03/18/19 09:33; Admin Dose 5 GM; Start 03/17/19 at 09:00 Hydromorphone HCl (Dilaudid HEAT SET OPERATOR) HEAT SET OPERATOR to be started in PACU Q4PCA IV Last administered on 03/17/19 23:22; Admin Dose 6 MG; Start 03/16/19 at 23:00 Modafinil (Provigil) 400 mg DAILY PO Last administered on 03/18/19 08:49; Admin Dose 400 MG; Start 03/17/19 at 12:00 MERRY SEGURA MD March 18, 2019 16:52
[2019-03-18] MEDS ORDERED: SOD CHLORIDE 0.9% 100 ML ONE (19:24)
[2019-03-18] MEDS ORDERED: IOHEXOL 300MG/ML 150 ML BTL ONE (19:24)
--- NOTE | 2019-03-18 20:24 | PN ---
Date/Time of Note Date/Time of Note DATE: 03/18/19 TIME: 20:23 Assessment/Plan Lines/Catheters IV Catheter Type (from Nrsg): Saline Lock Ross in Place (from Nrsg): Yes Assessment/Plan Assessment/Plan patient had an episode of tachycardia. Cardiac enzymes appear to be within normal limits. CT scan of the chest has been completed to rule out pulmonary emboli but the results are pending. Patient denies any chest pain or shortness of breath. He does not have any calf tenderness. Will monitor him overnight. If he does well and potentially he can be discharged to the rehab facility in [facility] tomorrow. We will continue with physical therapy for now and pain control. He has been doing well and is ambulating without a walker. Subjective 24 Hr Interval Summary no CP or SOB Exam/Review of Systems Vital Signs Vitals Vital Signs Date Temp Pulse Resp B/P (MAP) Pulse Ox O2 O2 Flow FiO2 Time Delivery Rate 03/18/19 98.0 107 20 131/63 94 Nasal 2.0 15:59 (85) Cannula Intake and Output 03/17/19 03/17/19 03/18/19 1515:00 23:00 07:00 IntakeIntake Total 300 ml 1050 ml 275 ml OutputOutput Total 852 ml 1400 ml BalanceBalance 300 ml 198 ml -1125 ml Exam Free Text/Dictation no calf ttp, neuro intact Results Result Diagram: 03/18/19 0446 03/18/19 0446 SUNDEEP OROPEZA MD March 18, 2019 20:24
[2019-03-18] MEDS: ATORVASTATIN 10 MG TAB PO SCH (20:27)
[2019-03-18] MEDS: MIRTAZAPINE 15 MG TAB PO SCH (20:27)
[2019-03-18] MEDS: DIPHENHYDRAMINE 25 MG CAP PO PRN (20:32)
[2019-03-18] MEDS ORDERED: HEPARIN 1000 UNITS/ML 10 ML INJ IV ONE (22:00)
[2019-03-18] MEDS ORDERED: HEPARIN 1000 UNITS/ML 10 ML INJ IV PRN ×2 (22:00)
[2019-03-18] MEDS: HEPARIN 25000 UNITS/250 ML 250 ML IV SCH (23:29)
[2019-03-19] VITALS (25 sets, daily range): BP systolic 81–143; BP diastolic 36–104; PULSE 85–104; RESP 11–23
[2019-03-19] MEDS: D5W-0.45 NACL + KCL 20 MEQ 1,000 ML IV SCH ×4 (01:16→21:28)
[2019-03-19] MEDS: PANTOPRAZOLE (EC) 40 MG TAB PO SCH (05:20)
[2019-03-19] MEDS: OXYCODONE/ACETAMINOPHEN (10/325) TAB PO PRN ×3 (05:24→16:46)
[2019-03-19] MEDS: LEVOTHYROXINE 125 MCG TAB PO SCH (07:58)
--- NOTE | 2019-03-19 08:05 | CONS ---
Assessment/Plan Assessment/Plan Assessment/Plan (Daily) Assessment and recommendations; next 1. Patient admitted for elective spinal surgery due to scoliosis then developed shortness of breath and tachycardia due to right-sided pulmonary embolism with interval clinical improvement. 2. Other comorbidities include history of depression, neuropathy, chronic pain, and hypothyroidism. 3. Anemia and thrombocytopenia. Continue IV heparin at least for 72 hours before switching to anticoagulation for 6 months with apixaban. Meanwhile monitor H&H and platelet count. Consultation Date/Type/Reason Admit Date/Time Mar 15, 2019 at 09:57 Date of Consultation: March 19, 2019 Type of Consult Pulmonary/critical care Patient is a very pleasant 68-year-old gentleman who was admitted for elective spinal fusion surgery. Surgeries were uneventful the patient had 2 sequential surgeries on and of last month. Yesterday the patient became tachypneic and mildly short of breath a CTA of the chest was done which is showing acute right sided pulmonary embolism. Patient will be transferred to ICU and is currently on IV heparin via protocol since last evening. Patient reports mild shortness of breath at rest. But denies any chest pain any coughing, wheezing, hemoptysis or any sputum production. Past medical history; 1. History of degenerative spinal scoliosis. 2. Depression 3. Hypothyroidism 4. Chronic pain 5. Neuropathy Medications; reviewed Allergies; penicillin Social history; patient has never smoked tobacco. He does use CBD. Family history; , has a supportive family. 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 Review of systems; denies any headache, visual changes, chest pain, coughing, wheezing, sputum production and hemoptysis. Complains of very mild shortness of breath at rest. Denies any abdominal pain, nausea vomiting. Any edema. Any leg pain. Denies any back pain. Denies any melena or hematochezia. General exam; elderly male, awake alert, currently in no distress. Date/Time of Note DATE: 03/19/19 TIME: 08:01 Past Medical History Medical History: GERD, high cholesterol, hypothyroid, other (Lumbar spinal stenosis; chronic pain syndrome; anxiety disorder with dysthymia; posttraumatic stress disorder; testicular hypofunction; benign prostatic hypertrophy) Home Meds Reported Medications Testosterone* (Androgel*) 1.62%-75gm Gel..identification technician, 60.75 MG TD DAILY, EA 03/15/19 Docusate Sodium* (Dok*) 100 Mg Tablet, 100 MG PO BID, #60 CAP 03/15/19 Oxycodone HCl/Acetaminophen (Oxycodone-Acetaminophen 10-325) 1 Each Tablet, 1 EACH PO EVERY 4-6 HOURS PRN for PAIN LEVEL 1-5, TAB 03/15/19 Mirtazapine* (Mirtazapine*) 30 Mg Tablet, 30 MG PO HS, TAB 03/15/19 Gabapentin* (Gabapentin*) 600 Mg Tablet, 1800 MG PO QHS, #90 TAB 03/15/19 Gabapentin* (Gabapentin*) 600 Mg Tablet, 600 MG PO QAM, #60 TAB 03/15/19 Simvastatin* (Zocor*) 20 Mg Tablet, 20 MG PO QHS, #30 TAB 03/15/19 Dexlansoprazole (Dexilant) 60 Mg Cap., 60 MG PO DAILY, #30 CAP 03/15/19 Eszopiclone (Lunesta) 2 Mg Tab, 2 MG PO HS PRN for INSOMNIA, TAB 03/15/19 Aripiprazole* (Abilify*) 5 Mg Tab, 5 MG PO DAILY, #30 TAB 03/15/19 Levothyroxine Sodium* (Levoxyl*) 125 Mcg Tablet, 125 MCG PO BEFORE BREAKFAST, #30 TAB 03/15/19 Modafinil* (Provigil*) 100 Mg Tablet, 400 MG PO QAM, TAB 03/15/19 Lorazepam* (Lorazepam*) 1 Mg Tablet, 1 MG PO TID PRN for ANXIETY, #30 TAB 03/15/19 Medications Current Medications Aripiprazole (Abilify) 5 mg DAILY PO Last administered on 03/18/19at 08:49; Admin Dose 5 MG; Start 03/16/19 at 09:00 Gabapentin (Neurontin) 1,800 mg QHS PO Last administered on 03/18/19 20:27; Admin Dose 1,800 MG; Start 03/15/19 at 21:00 Gabapentin (Neurontin) 600 mg QAM PO Last administered on 03/18/19 08:49; Admin Dose 600 MG; Start 03/16/19 at 09:00 Levothyroxine Sodium (Synthroid) 125 mcg BEFORE BREAKFAST PO Last administered on 03/19/19at 07:58; Admin Dose 125 MCG; Start 03/16/19 at 07:00 Lorazepam (Ativan) 1 mg TID PRN PO ANXIETY Last administered on 03/17/19 23:19; Admin Dose 1 MG; Start 03/15/19 at 19:00 Mirtazapine (Remeron) 30 mg HS PO Last administered on 03/18/19 20:27; Admin Dose 30 MG; Start 03/15/19 at 21:00 Pantoprazole (Protonix Tab) 40 mg DAILY@06 PO Last administered on 03/19/19 05:20; Admin Dose 40 MG; Start 03/16/19 at 06:00 Zolpidem Tartrate (Ambien) 5 mg HS PRN PO INSOMNIA; Start 03/15/19 at 23:00 Atorvastatin Calcium (Lipitor) 10 mg DAILY@21 PO Last administered on 03/18/19 20:27; Admin Dose 10 MG; Start 03/15/19 at 23:00 Potassium Chloride/Dextrose/ Sod Cl 1,000 ml @ 100 mls/hr Q10H IV Last administered on 03/19/19at 01:16; Admin Dose 100 MLS/HR; Start 03/16/19 at 13:57 Oxycodone/ Acetaminophen (Endocet (10/ 325)) 1 tab Q4H PRN PO .PAIN 5-10; Start 03/16/19 at 14:00 Oxycodone/ Acetaminophen (Endocet (10/ 325)) 2 tab Q4H PRN PO .PAIN 6-10 Last administered on 03/19/19 05:24; Admin Dose 2 TAB; Start 03/16/19 at 14:00 Hydromorphone HCl (Dilaudid) 0.2 mg Q1H PRN IV .BREAKTHROUGH PAIN Last administered on 03/16/19 22:20; Admin Dose 0.2 MG; Start 03/16/19 at 14:00 Ondansetron HCl (Zofran Inj) 4 mg Q6H PRN IV NAUSEA/VOMITING Last administered on 03/17/19 17:21; Admin Dose 4 MG; Start 03/16/19 at 14:00 Bisacodyl (Dulcolax Supp) 10 mg DAILY PRN VT .CONSTIPATION; Start 03/16/19 at 14:00 Docusate Sodium (Colace) 100 mg BID PO Last administered on 03/18/19 20:27; Admin Dose 100 MG; Start 03/16/19 at 21:00 Al Hydrox/Mg Hydrox/Simethicone (Mag-Al Plus) 15 ml Q6H PRN PO .CONSTIPATION/DYSPEPSIA; Start 03/16/19 at 14:00 Acetaminophen (Tylenol Tab) 650 mg Q4H PRN PO TORRES OR TEMP GREATER THAN 101.3F; Start 03/16/19 at 14:00 Cyclobenzaprine HCl (Flexeril) 5 mg TID PRN PO .MUSCLE SPASM Last administered on 03/18/19 12:55; Admin Dose 5 MG; Start 03/16/19 at 14:00 Phenol (Cepastat Lozenge) 1 lozenge PRN PRN MT .SORE THROAT Last administered on 03/18/19 04:54; Admin Dose 1 LOZENGE; Start 03/16/19 at 14:00 Diphenhydramine HCl (Benadryl) 25 mg Q6H PRN PO .ITCHING Last administered on 03/18/19 20:32; Admin Dose 25 MG; Start 03/16/19 at 14:00 Diphenhydramine HCl (Benadryl) 25 mg Q6H PRN IV .ITCHING; Start 03/16/19 at 14:00 Naloxone HCl (Narcan) 0.2 mg Q2M PRN IV .RR 8 BREATHS/MIN OR LESS; Start 03/16/19 at 14:00 Miscellaneous Information 1. Hold TAPPER SUPERVISOR at 1,000... TAPPER SUPERVISOR IV ; Start 03/16/19 at 14:00 Testosterone (Androgel) 5 gm DAILY TOP Last administered on 03/18/19 09:33; Admin Dose 5 GM; Start 03/17/19 at 09:00 Hydromorphone HCl (Dilaudid TAPPER SUPERVISOR) TAPPER SUPERVISOR to be started in PACU Q4PCA IV Last administered on 03/17/19 23:22; Admin Dose 6 MG; Start 03/16/19 at 23:00 Modafinil (Provigil) 400 mg DAILY PO Last administered on 03/18/19 08:49; Admin Dose 400 MG; Start 03/17/19 at 12:00 Heparin Sodium (Porcine) (Heparin (1000 Units/ml)) 7,700 unit PER PROTOCOL PRN IV aPTT<47; Start 03/18/19 at 22:00 Heparin Sodium (Porcine) (Heparin (1000 Units/ml)) 3,900 unit PER PROTOCOL PRN IV aPTT<47-57; Start 03/18/19 at 22:00 Heparin Sodium (Porcine) 250 ml @ 17.5 mls/hr PER PROTOCOL IV Last administered on 03/18/19at 23:29; Admin Dose 17.5 MLS/HR; Start 03/18/19 at 22:00 Allergies: Coded Allergies: Penicillins (Verified Allergy, Severe, 03/15/19) adhesive tape (Verified Allergy, Unknown, 03/15/19) Past Surgical History Past Surgical Hx: other (That is post TURP; status post left shoulder replacement therapy 2017 status post right shoulder replacement October 2018; status post rhinoplasty; status post hernia repair) Social History Alcohol Use: occasionally Smoking Status: Never smoker Drug Use: none Exam/Review of Systems Exam Vitals Vital Signs Date Temp Pulse Resp B/P (MAP) Pulse Ox O2 O2 Flow FiO2 Time Delivery Rate 03/19/19 88 12 118/64 98 Nasal 2.0 06:00 (82) Cannula 03/19/19 98.1 04:00 03/19/19 27 02:16 Intake and Output 03/18/19 03/18/19 03/19/19 1515:00 23:00 07:00 IntakeIntake Total 1140 ml 230 ml 774.0 ml OutputOutput Total 100 ml 225 ml 775 ml BalanceBalance 1040 ml 5 ml -1.0 ml Exam H EENT exam; supple neck, no JVD. No lymphadenopathy. Midline trachea. No thyromegaly. No neck masses. Chest exam; clear to auscultation. S1-S2 audible, no murmurs. Regular rhythm. Abdomen exam; soft, nontender. No organomegaly. Bowel sounds audible. Back exam; dressing applied to lumbar area. Extremity exam; no peripheral edema clubbing. Pulses 2+. ENVIRONMENTAL SCIENCES PROFESSOR exam; no focal deficit. Results Result Diagram: 03/19/19 0553 03/19/19 0553 Results 24hrs Laboratory Tests Test 03/18/19 10:16 03/18/19 16:20 03/18/19 22:05 03/19/19 05:53 Blood Gas Specimen Blood arterial Source Arterial Blood 03/18/2019 10:49:49 Date Drawn AM Arterial Blood pH 7.399 (Temp corrected) Arterial Blood 46.8 H pCO2 (Temp correct) Arterial Blood pO2 67.7 L (Temp corrected) Arterial Blood 28.3 H HCO3 Arterial Blood 3.0 Base Excess Arterial Blood 93.3 L Oxygen Saturation Juve Test ACCEPTAB Arterial Blood Gas Right Radial Puncture Site Arterial 0.3 Blood Carboxyhemog lobin Arterial Blood 0.3 Methemoglobin Blood Gas A-a O2 69.5 H Differential Oxyhemoglobin 92.7 L Percent Blood Gas 37.0 Temperature Blood Gas Modality NASAL CANNULA FiO2 27.0 Blood Gas Notified TM Whom Blood Gas Notified 03/18/2019 11:00:20 Time AM Creatine Kinase 855 H Creatine Kinase 0.2 Index Creatinine Kinase 1.85 MB (Mass) Troponin I 0.070 White Blood Count 6.1 # 6.1 Red Blood Count 2.63 L 2.68 L Hemoglobin 8.2 L 8.4 L Hematocrit 24.8 L 25.0 L Mean Corpuscular 94.3 93.3 Volume Mean Corpuscular 31.2 31.3 Hemoglobin Mean Corpuscular 33.1 33.6 Hemoglobin Concent Red Cell 14.0 14.0 Distribution Width Platelet Count 122 L 133 L Mean Platelet 8.9 8.9 Volume Immature 0.500 H 0.700 H Granulocytes % Neutrophils % 67.3 62.0 Lymphocytes % 17.0 20.4 Monocytes % 9.6 11.0 Eosinophils % 5.1 5.6 Basophils % 0.5 0.3 Nucleated Red 0.0 0.0 Blood Cells % Immature 0.030 0.040 H Granulocytes # Neutrophils # 4.1 3.8 Lymphocytes # 1.0 1.2 Monocytes # 0.6 0.7 Eosinophils # 0.3 0.3 Basophils # 0.0 0.0 Nucleated Red 0.0 0.0 Blood Cells # Prothrombin Time 14.5 Prothrombin Time 1.1 Ratio INR International 1.12 Normalized Ratio Activated 39.1 H 129.7 *H Partial Thrombopla st Time Sodium Level 138 Potassium Level 3.3 L Chloride Level 102 Carbon Dioxide 33 H Level Anion Gap 3 L Blood Urea 8 Nitrogen Creatinine 0.78 Est Glomerular > 60 Filtrat Rate mL/min Glucose Level 131 Calcium Level 8.6 Magnesium Level 2.1 Test 03/19/19 07:00 Blood Gas Specimen Blood arterial Source Arterial Blood 03/19/2019 7:04:42 Date Drawn AM Arterial Blood pH 7.464 H (Temp corrected) Arterial Blood 40.9 pCO2 (Temp correct) Arterial Blood pO2 75.2 L (Temp corrected) Arterial Blood 28.7 H HCO3 Arterial Blood 4.6 H Base Excess Arterial Blood 94.5 L Oxygen Saturation Juve Test ACCEPTAB Arterial Blood Gas Right Radial Puncture Site Arterial 0.3 Blood Carboxyhemog lobin Arterial Blood 0.3 Methemoglobin Blood Gas A-a O2 68.9 H Differential Oxyhemoglobin 93.9 Percent Blood Gas 37.0 Temperature Blood Gas Modality NASAL CANNULA FiO2 27.0 Blood Gas Notified TM Whom Blood Gas Notified 03/19/2019 7:12:20 Time AM Medications Medication Current Medications Aripiprazole (Abilify) 5 mg DAILY PO Last administered on 03/18/19 08:49; Admin Dose 5 MG; Start 03/16/19 at 09:00 Gabapentin (Neurontin) 1,800 mg QHS PO Last administered on 03/18/19 20:27; Admin Dose 1,800 MG; Start 03/15/19 at 21:00 Gabapentin (Neurontin) 600 mg QAM PO Last administered on 03/18/19 08:49; Admin Dose 600 MG; Start 03/16/19 at 09:00 Levothyroxine Sodium (Synthroid) 125 mcg BEFORE BREAKFAST PO Last administered on 03/19/19 07:58; Admin Dose 125 MCG; Start 03/16/19 at 07:00 Lorazepam (Ativan) 1 mg TID PRN PO ANXIETY Last administered on 03/17/19 23:19; Admin Dose 1 MG; Start 03/15/19 at 19:00 Mirtazapine (Remeron) 30 mg HS PO Last administered on 03/18/19 20:27; Admin Dose 30 MG; Start 03/15/19 at 21:00 Pantoprazole (Protonix Tab) 40 mg DAILY@06 PO Last administered on 03/19/19 05:20; Admin Dose 40 MG; Start 03/16/19 at 06:00 Zolpidem Tartrate (Ambien) 5 mg HS PRN PO INSOMNIA; Start 03/15/19 at 23:00 Atorvastatin Calcium (Lipitor) 10 mg DAILY@21 PO Last administered on 03/18/19 20:27; Admin Dose 10 MG; Start 03/15/19 at 23:00 Potassium Chloride/Dextrose/ Sod Cl 1,000 ml @ 100 mls/hr Q10H IV Last administered on 03/19/19 01:16; Admin Dose 100 MLS/HR; Start 03/16/19 at 13:57 Oxycodone/ Acetaminophen (Endocet (10/ 325)) 1 tab Q4H PRN PO .PAIN 5-10; Start 03/16/19 at 14:00 Oxycodone/ Acetaminophen (Endocet (10/ 325)) 2 tab Q4H PRN PO .PAIN 6-10 Last administered on 03/19/19 05:24; Admin Dose 2 TAB; Start 03/16/19 at 14:00 Hydromorphone HCl (Dilaudid) 0.2 mg Q1H PRN IV .BREAKTHROUGH PAIN Last administered on 03/16/19 22:20; Admin Dose 0.2 MG; Start 03/16/19 at 14:00 Ondansetron HCl (Zofran Inj) 4 mg Q6H PRN IV NAUSEA/VOMITING Last administered on 03/17/19 17:21; Admin Dose 4 MG; Start 03/16/19 at 14:00 Bisacodyl (Dulcolax Supp) 10 mg DAILY PRN VT .CONSTIPATION; Start 03/16/19 at 14:00 Docusate Sodium (Colace) 100 mg BID PO Last administered on 03/18/19 20:27; Admin Dose 100 MG; Start 03/16/19 at 21:00 Al Hydrox/Mg Hydrox/Simethicone (Mag-Al Plus) 15 ml Q6H PRN PO .CONS TIPATION/DYSPEPSIA; Start 03/16/19 at 14:00 Acetaminophen (Tylenol Tab) 650 mg Q4H PRN PO TORRES OR TEMP GREATER THAN 101.3F; Start 03/16/19 at 14:00 Cyclobenzaprine HCl (Flexeril) 5 mg TID PRN PO .MUSCLE SPASM Last administered on 03/18/19 12:55; Admin Dose 5 MG; Start 03/16/19 at 14:00 Phenol (Cepastat Lozenge) 1 lozenge PRN PRN MT .SORE THROAT Last administered on 03/18/19 04:54; Admin Dose 1 LOZENGE; Start 03/16/19 at 14:00 Diphenhydramine HCl (Benadryl) 25 mg Q6H PRN PO .ITCHING Last administered on 03/18/19 20:32; Admin Dose 25 MG; Start 03/16/19 at 14:00 Diphenhydramine HCl (Benadryl) 25 mg Q6H PRN IV .ITCHING; Start 03/16/19 at 14:00 Naloxone HCl (Narcan) 0.2 mg Q2M PRN IV .RR 8 BREATHS/MIN OR LESS; Start 03/16/19 at 14:00 Miscellaneous Information 1. Hold TAPPER SUPERVISOR at 1,000... TAPPER SUPERVISOR IV ; Start 03/16/19 at 14:00 Testosterone (Androgel) 5 gm DAILY TOP Last administered on 03/18/19 09:33; Admin Dose 5 GM; Start 03/17/19 at 09:00 Hydromorphone HCl (Dilaudid TAPPER SUPERVISOR) TAPPER SUPERVISOR to be started in PACU Q4PCA IV Last administered on 03/17/19 23:22; Admin Dose 6 MG; Start 03/16/19 at 23:00 Modafinil (Provigil) 400 mg DAILY PO Last administered on 03/18/19 08:49; Admin Dose 400 MG; Start 03/17/19 at 12:00 Heparin Sodium (Porcine) (Heparin (1000 Units/ml)) 7,700 unit PER PROTOCOL PRN IV aPTT<47; Start 03/18/19 at 22:00 Heparin Sodium (Porcine) (Heparin (1000 Units/ml)) 3,900 unit PER PROTOCOL PRN IV aPTT<47-57; Start 03/18/19 at 22:00 Heparin Sodium (Porcine) 250 ml @ 17.5 mls/hr PER PROTOCOL IV Last administered on 03/18/19 23:29; Admin Dose 17.5 MLS/HR; Start 03/18/19 at 22:00 MARIA D FLORENTINO March 19, 2019 08:04
--- NOTE | 2019-03-19 08:09 | PN ---
Date/Time of Note Date/Time of Note DATE: 03/19/19 TIME: 08:07 Assessment/Plan Lines/Catheters IV Catheter Type (from Nrsg): Saline [place] in Place (from Nrsg): No Assessment/Plan Assessment/Plan SP ALIF Acute PE Right lung Hemodynamically stable HR 98, BP 131/71 No SOB will start anticoagulation Subjective 24 Hr Interval Summary Constitutional: improved Pain Control: mild Exam/Review of Systems Vital Signs Vitals Vital Signs Date Temp Pulse Resp B/P (MAP) Pulse Ox O2 O2 Flow FiO2 Time Delivery Rate 03/19/19 91 14 131/79 95 Nasal 2.0 08:00 (96) Cannula 03/19/19 98.2 07:00 03/19/19 27 02:16 Intake and Output 03/18/19 03/18/19 03/19/19 1515:00 23:00 07:00 IntakeIntake Total 1140 ml 230 ml 774.0 ml OutputOutput Total 100 ml 225 ml 775 ml BalanceBalance 1040 ml 5 ml -1.0 ml Exam ENMT: nl external ears & nose, nl lips & teeth, nl nasal mucosa & septum, mucosa pink and moist Neck: supple, non-tender Respiratory: clear to auscultation, normal air movement Cardiovascular: regular rate and rhythm, nl pulses Gastrointestinal: soft, nl liver, spleen, non-tender Musculoskeletal: nl extremities to inspection, nl gait and stance Results Result Diagram: 03/19/19 0553 03/19/19 0553 MARIA EUGENIA IBARAR MD March 19, 2019 08:08
[2019-03-19] MEDS: GABAPENTIN 300 MG CAP PO SCH ×2 (08:18→20:46)
[2019-03-19] MEDS: DOCUSATE SODIUM 100 MG CAP PO SCH ×2 (08:18→20:45)
[2019-03-19] MEDS ORDERED: SENNA TAB PO ONE (08:30)
[2019-03-19] MEDS: ARIPIPRAZOLE 5 MG TAB PO SCH (09:21)
[2019-03-19] MEDS: TESTOSTERONE 1% GEL 5 GM PACKET TOP SCH (09:21)
[2019-03-19] MEDS: MODAFINIL 200 MG TAB PO SCH ×2 (10:16→10:37)
[2019-03-19] MEDS: LORAZEPAM 1 MG TAB PO PRN ×2 (10:42→20:47)
--- NOTE | 2019-03-19 11:36 | CONS ---
Assessment/Plan Assessment/Plan Hospital Course (Demo Recall) Acute pulmonary emboli Status post spinal surgery Hypertension Dyslipidemia Anxiety -Patient status post spinal surgery on this admission developed symptoms of pleuritic chest pain, shortness of breath and evidence of tachycardia yesterday. -CT pulmonary angiogram performed yesterday evening with pulmonary emboli. -Patient has been started on anticoagulation and being followed by our pulmonary colleagues -We will check echocardiogram Consultation Date/Type/Reason Admit Date/Time Mar 15, 2019 at 09:57 Type of Consult Cardiology Reason for Consultation Chest pain and shortness of breath Date/Time of Note DATE: 03/19/19 TIME: 11:31 Hx of Present Illness This is a 68-year-old male past medical history of hypertension who underwent elective spinal surgery on this admission. Yesterday, patient with chest pain with inspiration, shortness of breath and tachycardia. CT pulmonary angiogram with evidence of acute pulmonary emboli. Patient was started on termination last night. Shortness of breath is about the same compared to yesterday. His chest discomfort has improved and minimally present. Chest pain is with coughing and with deep inspiration. Denies any dizziness or lightheadedness currently but did just receive anxiolytic and is tired currently 12 point review of systems was performed with all pertinent positives and negatives mentioned above and all else is negative Past Medical History Medical History: high cholesterol, hypertension, hypothyroid Home Meds Reported Medications Testosterone* (Androgel*) 1.62%-75gm Gel..jukebox routeman, 60.75 MG TD DAILY, EA 03/15/19 Docusate Sodium* (Dok*) 100 Mg Tablet, 100 MG PO BID, #60 CAP 03/15/19 Oxycodone HCl/Acetaminophen (Oxycodone-Acetaminophen 10-325) 1 Each Tablet, 1 EACH PO EVERY 4-6 HOURS PRN for PAIN LEVEL 1-5, TAB 03/15/19 Mirtazapine* (Mirtazapine*) 30 Mg Tablet, 30 MG PO HS, TAB 03/15/19 Gabapentin* (Gabapentin*) 600 Mg Tablet, 1800 MG PO QHS, #90 TAB 03/15/19 Gabapentin* (Gabapentin*) 600 Mg Tablet, 600 MG PO QAM, #60 TAB 03/15/19 Simvastatin* (Zocor*) 20 Mg Tablet, 20 MG PO QHS, #30 TAB 03/15/19 Dexlansoprazole (Dexilant) 60 Mg Dennis., 60 MG PO DAILY, #30 CAP 03/15/19 Eszopiclone (Lunesta) 2 Mg Tab, 2 MG PO HS PRN for INSOMNIA, TAB 03/15/19 Aripiprazole* (Abilify*) 5 Mg Tab, 5 MG PO DAILY, #30 TAB 03/15/19 Levothyroxine Sodium* (Levoxyl*) 125 Mcg Tablet, 125 MCG PO BEFORE BREAKFAST, #30 TAB 03/15/19 Modafinil* (Provigil*) 100 Mg Tablet, 400 MG PO QAM, TAB 03/15/19 Lorazepam* (Lorazepam*) 1 Mg Tablet, 1 MG PO TID PRN for ANXIETY, #30 TAB 03/15/19 Medications Current Medications Aripiprazole (Abilify) 5 mg DAILY PO Last administered on 03/19/19 09:21; Admin Dose 5 MG; Start 03/16/19 at 09:00 Gabapentin (Neurontin) 1,800 mg QHS PO Last administered on 03/18/19at 20:27; Admin Dose 1,800 MG; Start 03/15/19 at 21:00 Gabapentin (Neurontin) 600 mg QAM PO Last administered on 03/19/19at 08:18; Admin Dose 600 MG; Start 03/16/19 at 09:00 Levothyroxine Sodium (Synthroid) 125 mcg BEFORE BREAKFAST PO Last administered on 03/19/19at 07:58; Admin Dose 125 MCG; Start 03/16/19 at 07:00 Lorazepam (Ativan) 1 mg TID PRN PO ANXIETY Last administered on 03/19/19at 10:42; Admin Dose 1 MG; Start 03/15/19 at 19:00 Mirtazapine (Remeron) 30 mg HS PO Last administered on 03/18/19at 20:27; Admin Dose 30 MG; Start 03/15/19 at 21:00 Pantoprazole (Protonix Tab) 40 mg DAILY@06 PO Last administered on 03/19/19 05:20; Admin Dose 40 MG; Start 03/16/19 at 06:00 Zolpidem Tartrate (Ambien) 5 mg HS PRN PO INSOMNIA; Start 03/15/19 at 23:00 Atorvastatin Calcium (Lipitor) 10 mg DAILY@21 PO Last administered on 03/18/19 20:27; Admin Dose 10 MG; Start 03/15/19 at 23:00 Potassium Chloride/Dextrose/ Sod Cl 1,000 ml @ 100 mls/hr Q10H IV Last administered on 03/19/19 10:39; Admin Dose 100 MLS/HR; Start 03/16/19 at 13:57 Oxycodone/ Acetaminophen (Endocet (10/ 325)) 1 tab Q4H PRN PO .PAIN 5-10; Start 03/16/19 at 14:00 Oxycodone/ Acetaminophen (Endocet (10/ 325)) 2 tab Q4H PRN PO .PAIN 6-10 Last administered on 03/19/19 05:24; Admin Dose 2 TAB; Start 03/16/19 at 14:00 Hydromorphone HCl (Dilaudid) 0.2 mg Q1H PRN IV .BREAKTHROUGH PAIN Last administ ered on 03/16/19at 22:20; Admin Dose 0.2 MG; Start 03/16/19 at 14:00 Ondansetron HCl (Zofran Inj) 4 mg Q6H PRN IV NAUSEA/VOMITING Last administered on 03/17/19 17:21; Admin Dose 4 MG; Start 03/16/19 at 14:00 Bisacodyl (Dulcolax Supp) 10 mg DAILY PRN AL .CONSTIPATION; Start 03/16/19 at 14:00 Docusate Sodium (Colace) 100 mg BID PO Last administered on 03/19/19 08:18; Admin Dose 100 MG; Start 03/16/19 at 21:00 Al Hydrox/Mg Hydrox/Simethicone (Mag-Al Plus) 15 ml Q6H PRN PO .CONSTIPATION/DYSPEPSIA; Start 03/16/19 at 14:00 Acetaminophen (Tylenol Tab) 650 mg Q4H PRN PO TORRES OR TEMP GREATER THAN 101.3F; Start 03/16/19 at 14:00 Cyclobenzaprine HCl (Flexeril) 5 mg TID PRN PO .MUSCLE SPASM Last administered on 03/18/19 12:55; Admin Dose 5 MG; Start 03/16/19 at 14:00 Phenol (Cepastat Lozenge) 1 lozenge PRN PRN MT .SORE THROAT Last administered on 03/18/19 04:54; Admin Dose 1 LOZENGE; Start 03/16/19 at 14:00 Diphenhydramine HCl (Benadryl) 25 mg Q6H PRN PO .ITCHING Last administered on 03/18/19 20:32; Admin Dose 25 MG; Start 03/16/19 at 14:00 Diphenhydramine HCl (Benadryl) 25 mg Q6H PRN IV .ITCHING; Start 03/16/19 at 14:00 Naloxone HCl (Narcan) 0.2 mg Q2M PRN IV .RR 8 BREATHS/MIN OR LESS; Start 03/16/19 at 14:00 Miscellaneous Information 1. Hold GROCERY SACKER at 1,000... GROCERY SACKER IV ; Start 03/16/19 at 14:00 Testosterone (Androgel) 5 gm DAILY TOP Last administered on 03/19/19 09:21; Admin Dose 5 GM; Start 03/17/19 at 09:00 Hydromorphone HCl (Dilaudid GROCERY SACKER) GROCERY SACKER to be started in PACU Q4PCA IV Last a dministered on 03/17/19at 23:22; Admin Dose 6 MG; Start 03/16/19 at 23:00 Modafinil (Provigil) 400 mg DAILY PO Last administered on 03/19/19 10:37; Admin Dose 400 MG; Start 03/17/19 at 12:00 Heparin Sodium (Porcine) (Heparin (1000 Units/ml)) 7,700 unit PER PROTOCOL PRN IV aPTT<47; Start 03/18/19 at 22:00 Heparin Sodium (Porcine) (Heparin (1000 Units/ml)) 3,900 unit PER PROTOCOL PRN IV aPTT<47-57; Start 03/18/19 at 22:00 Heparin Sodium (Porcine) 250 ml @ 17.5 mls/hr PER PROTOCOL IV Last administere d on 03/18/19 23:29; Admin Dose 17.5 MLS/HR; Start 03/18/19 at 22:00 Allergies: Coded Allergies: Penicillins (Verified Allergy, Severe, 03/15/19) adhesive tape (Verified Allergy, Unknown, 03/15/19) Past Surgical History Past Surgical Hx: other (That is post TURP; status post left shoulder replacement 2017 status post right shoulder replacement October 2018; status post rhinoplasty; status post hernia repair) Social History Alcohol Use: occasionally Smoking Status: Never smoker Drug Use: none Exam/Review of Systems Vital Signs Vitals Vital Signs Date Temp Pulse Resp B/P (MAP) Pulse Ox O2 O2 Flow FiO2 Time Delivery Rate 03/19/19 87 11 81/36 (51) 97 Nasal 2.0 11:00 Cannula 03/19/19 98.2 07:00 03/19/19 27 02:16 Intake and Output 03/18/19 03/18/19 03/19/19 1414:59 22:59 06:59 IntakeIntake Total 1140 ml 200 ml 704.0 ml OutputOutput Total 100 ml 100 ml 900 ml BalanceBalance 1040 ml 100 ml -196.0 ml Exam Constitutional: alert, oriented (No apparent distress, sleeping but arousable and able to answer questions) Head: normocephalic Respiratory: other (Coarse breath sounds bilaterally, no wheezing) Cardiovascular: regular rate and rhythm (S1-S2 heard) Gastrointestinal: soft, non-tender, bowel sounds Extremities: other (No significant edema) Labs Result Diagram: 03/19/19 0553 03/19/19 0553 Results 24hrs Laboratory Tests Test 03/18/19 16:20 03/18/19 22:05 03/19/19 05:53 03/19/19 07:00 Creatine Kinase 855 H Creatine Kinase 0.2 Index Creatinine Kinase 1.85 MB (Mass) Troponin I 0.070 White Blood Count 6.1 # 6.1 Red Blood Count 2.63 L 2.68 L Hemoglobin 8.2 L 8.4 L Hematocrit 24.8 L 25.0 L Mean Corpuscular 94.3 93.3 Volume Mean Corpuscular 31.2 31.3 Hemoglobin Mean Corpuscular 33.1 33.6 Hemoglobin Concent Red Cell 14.0 14.0 Distribution Width Platelet Count 122 L 133 L Mean Platelet 8.9 8.9 Volume Immature 0.500 H 0.700 H Granulocytes % Neutrophils % 67.3 62.0 Lymphocytes % 17.0 20.4 Monocytes % 9.6 11.0 Eosinophils % 5.1 5.6 Basophils % 0.5 0.3 Nucleated Red 0.0 0.0 Blood Cells % Immature 0.030 0.040 H Granulocytes # Neutrophils # 4.1 3.8 Lymphocytes # 1.0 1.2 Monocytes # 0.6 0.7 Eosinophils # 0.3 0.3 Basophils # 0.0 0.0 Nucleated Red 0.0 0.0 Blood Cells # Prothrombin Time 14.5 Prothrombin Time 1.1 Ratio INR International 1.12 Normalized Ratio Activated 39.1 H 129.7 *H Partial Thrombopla st Time Sodium Level 138 Potassium Level 3.3 L Chloride Level 102 Carbon Dioxide 33 H Level Anion Gap 3 L Blood Urea 8 Nitrogen Creatinine 0.78 Est Glomerular > 60 Filtrat Rate mL/min Glucose Level 131 Calcium Level 8.6 Magnesium Level 2.1 Blood Gas Specimen Blood arterial Source Arterial Blood 03/19/2019 7:04:42 Date Drawn AM Arterial Blood pH 7.464 H (Temp corrected) Arterial Blood 40.9 pCO2 (Temp correct) Arterial Blood pO2 75.2 L (Temp corrected) Arterial Blood 28.7 H HCO3 Arterial Blood 4.6 H Base Excess Arterial Blood 94.5 L Oxygen Saturation Juve Test ACCEPTAB Arterial Blood Gas Right Radial Puncture Site Arterial 0.3 Blood Carboxyhemog lobin Arterial Blood 0.3 Methemoglobin Blood Gas A-a O2 68.9 H Differential Oxyhemoglobin 93.9 Percent Blood Gas 37.0 Temperature Blood Gas Modality NASAL CANNULA FiO2 27.0 Blood Gas Notified TM Whom Blood Gas Notified 03/19/2019 7:12:20 Time AM Imaging Imaging ECG performed yesterday demonstrates sinus tachycardia 108 bpm, QRS 97 ms, no significant ischemic ST abnormalities Medications Medications Current Medications Aripiprazole (Abilify) 5 mg DAILY PO Last administered on 03/19/19 09:21; Admin Dose 5 MG; Start 03/16/19 at 09:00 Gabapentin (Neurontin) 1,800 mg QHS PO Last administered on 03/18/19 20:27; Admin Dose 1,800 MG; Start 03/15/19 at 21:00 Gabapentin (Neurontin) 600 mg QAM PO Last administered on 03/19/19 08:18; Admin Dose 600 MG; Start 03/16/19 at 09:00 Levothyroxine Sodium (Synthroid) 125 mcg BEFORE BREAKFAST PO Last administered on 03/19/19 07:58; Admin Dose 125 MCG; Start 03/16/19 at 07:00 Lorazepam (Ativan) 1 mg TID PRN PO ANXIETY Last administered on 03/19/19 10:42; Admin Dose 1 MG; Start 03/15/19 at 19:00 Mirtazapine (Remeron) 30 mg HS PO Last administered on 03/18/19 20:27; Admin Dose 30 MG; Start 03/15/19 at 21:00 Pantoprazole (Protonix Tab) 40 mg DAILY@06 PO Last administered on 03/19/19 05:20; Admin Dose 40 MG; Start 03/16/19 at 06:00 Zolpidem Tartrate (Ambien) 5 mg HS PRN PO INSOMNIA; Start 03/15/19 at 23:00 Atorvastatin Calcium (Lipitor) 10 mg DAILY@21 PO Last administered on 03/18/19 20:27; Admin Dose 10 MG; Start 03/15/19 at 23:00 Potassium Chloride/Dextrose/ Sod Cl 1,000 ml @ 100 mls/hr Q10H IV Last administered on 03/19/19 10:39; Admin Dose 100 MLS/HR; Start 03/16/19 at 13:57 Oxycodone/ Acetaminophen (Endocet (10/ 325)) 1 tab Q4H PRN PO .PAIN 5-10; Start 03/16/19 at 14:00 Oxycodone/ Acetaminophen (Endocet (10/ 325)) 2 tab Q4H PRN PO .PAIN 6-10 Last administered on 03/19/19 05:24; Admin Dose 2 TAB; Start 03/16/19 at 14:00 Hydromorphone HCl (Dilaudid) 0.2 mg Q1H PRN IV .BREAKTHROUGH PAIN Last administered on 03/16/19 22:20; Admin Dose 0.2 MG; Start 03/16/19 at 14:00 Ondansetron HCl (Zofran Inj) 4 mg Q6H PRN IV NAUSEA/VOMITING Last administered on 03/17/19 17:21; Admin Dose 4 MG; Start 03/16/19 at 14:00 Bisacodyl (Dulcolax Supp) 10 mg DAILY PRN AL .CONSTIPATION; Start 03/16/19 at 14:00 Docusate Sodium (Colace) 100 mg BID PO Last administered on 03/19/19 08:18; Admin Dose 100 MG; Start 03/16/19 at 21:00 Al Hydrox/Mg Hydrox/Simethicone (Mag-Al Plus) 15 ml Q6H PRN PO .CONSTIPATION/DYSPEPSIA; Start 03/16/19 at 14:00 Acetaminophen (Tylenol Tab) 650 mg Q4H PRN PO TORRES OR TEMP GREATER THAN 101.3F; Start 03/16/19 at 14:00 Cyclobenzaprine HCl (Flexeril) 5 mg TID PRN PO .MUSCLE SPASM Last administered on 03/18/19at 12:55; Admin Dose 5 MG; Start 03/16/19 at 14:00 Phenol (Cepastat Lozenge) 1 lozenge PRN PRN MT .SORE THROAT Last administered on 03/18/19 04:54; Admin Dose 1 LOZENGE; Start 03/16/19 at 14:00 Diphenhydramine HCl (Benadryl) 25 mg Q6H PRN PO .ITCHING Last administered on 03/18/19at 20:32; Admin Dose 25 MG; Start 03/16/19 at 14:00 Diphenhydramine HCl (Benadryl) 25 mg Q6H PRN IV .ITCHING; Start 03/16/19 at 14:00 Naloxone HCl (Narcan) 0.2 mg Q2M PRN IV .RR 8 BREATHS/MIN OR LESS; Start 03/16/19 at 14:00 Miscellaneous Information 1. Hold GROCERY SACKER at 1,000... GROCERY SACKER IV ; Start 03/16/19 at 14:00 Testosterone (Androgel) 5 gm DAILY TOP Last administered on 03/19/19 09:21; Admin Dose 5 GM; Start 03/17/19 at 09:00 Hydromorphone HCl (Dilaudid GROCERY SACKER) GROCERY SACKER to be started in PACU Q4PCA IV Last administered on 03/17/19 23:22; Admin Dose 6 MG; Start 03/16/19 at 23:00 Modafinil (Provigil) 400 mg DAILY PO Last administered on 03/19/19at 10:37; Admin Dose 400 MG; Start 03/17/19 at 12:00 Heparin Sodium (Porcine) (Heparin (1000 Units/ml)) 7,700 unit PER PROTOCOL PRN IV aPTT<47; Start 03/18/19 at 22:00 Heparin Sodium (Porcine) (Heparin (1000 Units/ml)) 3,900 unit PER PROTOCOL PRN IV aPTT<47-57; Start 03/18/19 at 22:00 Heparin Sodium (Porcine) 250 ml @ 17.5 mls/hr PER PROTOCOL IV Last administered on 03/18/19at 23:29; Admin Dose 17.5 MLS/HR; Start 03/18/19 at 22:00 Tom Jimenes DO March 19, 2019 11:36
--- NOTE | 2019-03-19 12:13 | RADRPT ---
Echocardiogram Report Patient Name: SLY ECHEVERRIAPatient ID: [id number] : 1950 (68y 7m)Study Date: 03/19/2019 7:49:33 AM Gender: MAccession #: [id number] Tech: Marli Al RDCS Location: [facility] Ref.Physician: TOM JIMENES Height(Cm): BSA: Weight(Kg): Quality: AdequateAccount #: Procedures: Echocardiographic Report: Transthoracic echocardiogram with complete 2D, M-Mode, and doppler examination. Indications: Pulmonary embolism. Measurements: 2D/M Mode Doppler Measurement Value Normal Range Measurement Value Normal Range LVIDd 2D 4.4 [ 4.2 - 5.8 ] cm AV Peak Osmany 1.4 [ 100.0 - 170.0 ] cm/sec LVIDs 2D 2.4 [ 2.5 - 4.0 ] cm AV Peak PG 8.0 [ 2.0 - 9.0 ] mmHg LVPWd 2D 1.4 [ 0.6 - 1.0 ] cm AI Peak PG 39.0 mmHg IVSd 2D 1.5 [ 0.6 - 1.0 ] cm AI Peak Osmany 3.1 cm/sec AoR Diam 2D 3.6 [ 2.6 - 3.4 ] cm AI PHT 568.0 msec EDV 2D 86.8 [ 62.0 - 150.0 ] ml LVOT Peak Osmany 1.2 [ 70.0 - 110.0 ] cm/sec ESV 2D 20.8 [ 21.0 - 61.0 ] ml LVOT Peak PG 6.0 [ 2.0 - 6.0 ] mmHg EF 2D 76.0 [ 52.0 - 72.0 ] percent MV E Peak Osmany 0.6 [ 60.0 - 130.0 ] cm/sec LA Dimen 2D 3.5 [ 3.0 - 4.0 ] cm MV A Peak Osmany 0.8 [ 100.0 - 120.0 ] cm/sec MV E/A 0.7 [ 0.8 - 1.5 ] ratio MV Decel Time 211 [ 104 - 258 ] msec Lat E` Osmany 0.1 [ 10.0 - 15.0 ] cm/sec Lateral E/E` 5.6 [ 1.0 - 2.0 ] ratio MV E/A 0.7 [ 0.8 - 1.5 ] ratio TR Peak Osmany 2.3 [ 100.0 - 280.0 ] cm/sec TR Peak PG 20.0 mmHg RVSP 23.0 [ 10.0 - 36.0 ] mmHg RA Pressure 3.0 mmHg Findings: Left Ventricle: Normal left ventricular systolic function. Normal left ventricular cavity size. Moderate concentric left ventricular hypertrophy. Ejection fraction is visually estimated at 60 %. Tissue Doppler/Mitral Doppler indices are consistent with impaired relaxation (Stage I diastolic dysfunction). Right Ventricle: Normal right ventricular size. Normal right ventricular systolic function. Left Atrium: The left atrium is normal in size. Right Atrium: There is mild enlargement of right atrium. Mitral Valve: Normal appearance and function of the mitral valve with trace physiologic regurgitation. Aortic Valve: No hemodynamically significant aortic stenosis by doppler. Aortic cusps appear mildly calcified. Mild aortic valve regurgitation. Tricuspid Valve: Normal appearance of the tricuspid valve. Estimated peak PA systolic pressure 23 mmHg. There is trace tricuspid regurgitation. Pulmonic Valve: Pulmonic valve not well visualized. Pericardium: Normal pericardium with no significant pericardial effusion. Aorta: Normal aortic root. IVC: Normal size and normal respiratory collapse consistent with normal right atrial pressure. Conclusions: Normal left ventricular systolic function. Normal left ventricular cavity size. Moderate concentric left ventricular hypertrophy. Ejection fraction is visually estimated at 60 %. Tissue Doppler/Mitral Doppler indices are consistent with impaired relaxation (Stage I diastolic dysfunction). Normal right ventricular size. Normal right ventricular systolic function. The left atrium is normal in size. There is mild enlargement of right atrium. No hemodynamically significant aortic stenosis by doppler. Mild aortic valve regurgitation. No significant valvular stenosis or regurgitation seen of remaining visualized valves. Normal pericardium with no significant pericardial effusion. Electronically Signed By: Tom Jimenes 2019-03-19 12:13:22 PDT
--- NOTE | 2019-03-19 12:20 | CONS ---
Assessment/Plan Assessment/Plan Problems: (1) S/P lumbar and lumbosacral fusion by anterior technique Onset Date: ~ 03/15/2019 Status: Acute Comment: Progressing although at this time he is in the intensive care unit after developing postoperative pulmonary embolism. He is being anticoagulated and there is no evidence of significant bleeding or other major issues fortunately. IV anticoagulation for 3 days followed by apixaban (2) S/P lumbar fusion Onset Date: ~ 03/16/2019 Status: Acute Comment: As above. (3) Pulmonary embolism during current hospitalization Status: Acute Comment: Right-sided pulmonary embolism postop. There is a DVT identified in imaging studies although this is not going to change our therapeutics. He is on IV heparin for 3 days to stabilize the clots followed by apixaban for 6 months. At this time his condition is viewed as serious (4) Anxiety disorder Status: Chronic Comment: Adjust the dosage of lorazepam Qualifiers: Anxiety disorder type: generalized anxiety disorder Qualified Codes: F41.1 - Generalized anxiety disorder (5) Chronic pain syndrome Status: Chronic Comment: Noted. Continue with pain relievers (6) Hyperlipidemia Status: Chronic Comment: Continue with medical control Qualifiers: Hyperlipidemia type: pure hypercholesterolemia Qualified Codes: E78.00 - Pure hypercholesterolemia, unspecified (7) Acquired hypothyroidism Status: Chronic Comment: Stable on replacement (8) Benign prostatic hyperplasia Status: Chronic Comment: Continue with medical therapy Qualifiers: Lower urinary tract symptom presence: symptoms absent Qualified Codes: N40.0 - Benign prostatic hyperplasia without lower urinary tract symptoms (9) Postoperative anemia Status: Acute Comment: Watch carefully due to anticoagulation Consultation Date/Type/Reason Admit Date/Time Mar 15, 2019 at 09:57 Initial Consult Date 03/15/19 Type of Consult Internal medicine Reason for Consultation Postoperative assistance after sequential spinal fusion surgeries. Postoperative pulmonary embolism. Postoperative anemia. Severe anxiety disorder per Requesting Provider: SUNDEEP OROPEZA MD Date/Time of Note DATE: 03/19/19 TIME: 12:16 24 HR Interval Summary Free Text/Dictation Patient reports he is quite anxious at this time. Reports his breathing is minimally labored. Complains of left thigh pain Constitutional: no complaints (Denies fevers chills or sweats) Detailed Summary Respiratory: shortness of breath Cardiovascular: no complaints Gastrointestinal: no complaints Genitourinary: no complaints Endocrine: no complaints Exam/Review of Systems Exam Vitals Vital Signs Date Temp Pulse Resp B/P (MAP) Pulse Ox O2 O2 Flow FiO2 Time Delivery Rate 03/19/19 87 11 81/36 (51) 97 Nasal 2.0 11:00 Cannula 03/19/19 98.2 07:00 03/19/19 27 02:16 Intake and Output 03/18/19 03/18/19 03/19/19 1515:00 23:00 07:00 IntakeIntake Total 1140 ml 230 ml 774.0 ml OutputOutput Total 100 ml 225 ml 975 ml BalanceBalance 1040 ml 5 ml -201.0 ml Constitutional: alert, oriented Neck: supple, non-tender Respiratory: clear to auscultation, normal air movement Cardiovascular: regular rate and rhythm, nl pulses Gastrointestinal: soft, nl liver, spleen, non-tender Results Result Diagram: 03/19/19 0553 03/19/19 0553 Results 24hrs Laboratory Tests Test 03/18/19 16:20 03/18/19 22:05 03/19/19 05:53 03/19/19 07:00 Creatine Kinase 855 H Creatine Kinase 0.2 Index Creatinine Kinase 1.85 MB (Mass) Troponin I 0.070 White Blood Count 6.1 # 6.1 Red Blood Count 2.63 L 2.68 L Hemoglobin 8.2 L 8.4 L Hematocrit 24.8 L 25.0 L Mean Corpuscular 94.3 93.3 Volume Mean Corpuscular 31.2 31.3 Hemoglobin Mean Corpuscular 33.1 33.6 Hemoglobin Concent Red Cell 14.0 14.0 Distribution Width Platelet Count 122 L 133 L Mean Platelet 8.9 8.9 Volume Immature 0.500 H 0.700 H Granulocytes % Neutrophils % 67.3 62.0 Lymphocytes % 17.0 20.4 Monocytes % 9.6 11.0 Eosinophils % 5.1 5.6 Basophils % 0.5 0.3 Nucleated Red 0.0 0.0 Blood Cells % Immature 0.030 0.040 H Granulocytes # Neutrophils # 4.1 3.8 Lymphocytes # 1.0 1.2 Monocytes # 0.6 0.7 Eosinophils # 0.3 0.3 Basophils # 0.0 0.0 Nucleated Red 0.0 0.0 Blood Cells # Prothrombin Time 14.5 Prothrombin Time 1.1 Ratio INR International 1.12 Normalized Ratio Activated 39.1 H 129.7 *H Partial Thrombopla st Time Sodium Level 138 Potassium Level 3.3 L Chloride Level 102 Carbon Dioxide 33 H Level Anion Gap 3 L Blood Urea 8 Nitrogen Creatinine 0.78 Est Glomerular > 60 Filtrat Rate mL/min Glucose Level 131 Calcium Level 8.6 Magnesium Level 2.1 Blood Gas Specimen Blood arterial Source Arterial Blood 03/19/2019 7:04:42 Date Drawn AM Arterial Blood pH 7.464 H (Temp corrected) Arterial Blood 40.9 pCO2 (Temp correct) Arterial Blood pO2 75.2 L (Temp corrected) Arterial Blood 28.7 H HCO3 Arterial Blood 4.6 H Base Excess Arterial Blood 94.5 L Oxygen Saturation Juve Test ACCEPTAB Arterial Blood Gas Right Radial Puncture Site Arterial 0.3 Blood Carboxyhemog lobin Arterial Blood 0.3 Methemoglobin Blood Gas A-a O2 68.9 H Differential Oxyhemoglobin 93.9 Percent Blood Gas 37.0 Temperature Blood Gas Modality NASAL CANNULA FiO2 27.0 Blood Gas Notified TM Whom Blood Gas Notified 03/19/2019 7:12:20 Time AM Medications Medication Current Medications Aripiprazole (Abilify) 5 mg DAILY PO Last administered on 03/19/19 09:21; Admin Dose 5 MG; Start 03/16/19 at 09:00 Gabapentin (Neurontin) 1,800 mg QHS PO Last administered on 03/18/19 20:27; Admin Dose 1,800 MG; Start 03/15/19 at 21:00 Gabapentin (Neurontin) 600 mg QAM PO Last administered on 03/19/19 08:18; Admin Dose 600 MG; Start 03/16/19 at 09:00 Levothyroxine Sodium (Synthroid) 125 mcg BEFORE BREAKFAST PO Last administered on 03/19/19 07:58; Admin Dose 125 MCG; Start 03/16/19 at 07:00 Lorazepam (Ativan) 1 mg TID PRN PO ANXIETY Last administered on 03/19/19 10:42; Admin Dose 1 MG; Start 03/15/19 at 19:00 Mirtazapine (Remeron) 30 mg HS PO Last administered on 03/18/19 20:27; Admin Dose 30 MG; Start 03/15/19 at 21:00 Pantoprazole (Protonix Tab) 40 mg DAILY@06 PO Last administered on 03/19/19 05:20; Admin Dose 40 MG; Start 03/16/19 at 06:00 Zolpidem Tartrate (Ambien) 5 mg HS PRN PO INSOMNIA; Start 03/15/19 at 23:00 Atorvastatin Calcium (Lipitor) 10 mg DAILY@21 PO Last administered on 03/18/19 20:27; Admin Dose 10 MG; Start 03/15/19 at 23:00 Potassium Chloride/Dextrose/ Sod Cl 1,000 ml @ 100 mls/hr Q10H IV Last administered on 03/19/19 10:39; Admin Dose 100 MLS/HR; Start 03/16/19 at 13:57 Oxycodone/ Acetaminophen (Endocet (10/ 325)) 1 tab Q4H PRN PO .PAIN 5-10; Start 03/16/19 at 14:00 Oxycodone/ Acetaminophen (Endocet (10/ 325)) 2 tab Q4H PRN PO .PAIN 6-10 Last administered on 03/19/19 05:24; Admin Dose 2 TAB; Start 03/16/19 at 14:00 Hydromorphone HCl (Dilaudid) 0.2 mg Q1H PRN IV .BREAKTHROUGH PAIN Last administered on 03/16/19 22:20; Admin Dose 0.2 MG; Start 03/16/19 at 14:00 Ondansetron HCl (Zofran Inj) 4 mg Q6H PRN IV NAUSEA/VOMITING Last administered on 03/17/19 17:21; Admin Dose 4 MG; Start 03/16/19 at 14:00 Bisacodyl (Dulcolax Supp) 10 mg DAILY PRN [place] .CONSTIPATION; Start 03/16/19 at 14:00 Docusate Sodium (Colace) 100 mg BID PO Last administered on 03/19/19 08:18; Admin Dose 100 MG; Start 03/16/19 at 21:00 Al Hydrox/Mg Hydrox/Simethicone (Mag-Al Plus) 15 ml Q6H PRN PO .CONSTIPATION/DYSPEPSIA; Start 03/16/19 at 14:00 Acetaminophen (Tylenol Tab) 650 mg Q4H PRN PO TORRES OR TEMP GREATER THAN 101.3F; Start 03/16/19 at 14:00 Cyclobenzaprine HCl (Flexeril) 5 mg TID PRN PO .MUSCLE SPASM Last administered on 03/18/19 12:55; Admin Dose 5 MG; Start 03/16/19 at 14:00 Phenol (Cepastat Lozenge) 1 lozenge PRN PRN [place] .SORE THROAT Last administered on 03/18/19 04:54; Admin Dose 1 LOZENGE; Start 03/16/19 at 14:00 Diphenhydramine HCl (Benadryl) 25 mg Q6H PRN PO .ITCHING Last administered on 03/18/19 20:32; Admin Dose 25 MG; Start 03/16/19 at 14:00 Diphenhydramine HCl (Benadryl) 25 mg Q6H PRN IV .ITCHING; Start 03/16/19 at 14:00 Naloxone HCl (Narcan) 0.2 mg Q2M PRN IV .RR 8 BREATHS/MIN OR LESS; Start 03/16/19 at 14:00 Miscellaneous Information 1. Hold TRANSPORT COMPANY MANAGER at 1,000... TRANSPORT COMPANY MANAGER IV ; Start 03/16/19 at 14:00 Testosterone (Androgel) 5 gm DAILY TOP Last administered on 03/19/19 09:21; Admin Dose 5 GM; Start 03/17/19 at 09:00 Hydromorphone HCl (Dilaudid TRANSPORT COMPANY MANAGER) TRANSPORT COMPANY MANAGER to be started in PACU Q4PCA IV Last administered on 03/17/19 23:22; Admin Dose 6 MG; Start 03/16/19 at 23:00 Modafinil (Provigil) 400 mg DAILY PO Last administered on 03/19/19 10:37; Admin Dose 400 MG; Start 03/17/19 at 12:00 Heparin Sodium (Porcine) (Heparin (1000 Units/ml)) 7,700 unit PER PROTOCOL PRN IV aPTT<47; Start 03/18/19 at 22:00 Heparin Sodium (Porcine) (Heparin (1000 Units/ml)) 3,900 unit PER PROTOCOL PRN IV aPTT<47-57; Start 03/18/19 at 22:00 Heparin Sodium (Porcine) 250 ml @ 17.5 mls/hr PER PROTOCOL IV Last administered on 03/18/19 23:29; Admin Dose 17.5 MLS/HR; Start 03/18/19 at 22:00 JAGUAR GRAVES MD March 19, 2019 12:20
[2019-03-19] MEDS: HEPARIN 25000 UNITS/250 ML 250 ML IV SCH (12:40)
--- NOTE | 2019-03-19 13:03 | PN ---
Date/Time of Note Date/Time of Note DATE: 03/19/19 TIME: 13:01 Assessment/Plan Lines/Catheters IV Catheter Type (from Nrsg): Saline Lock Ross in Place (from Nrsg): No Assessment/Plan Assessment/Plan ortho - doing well but is having left groin. It was discussed with the patient that this is common with the surgical approach Vascular-the patient has a blood clot. Plan is for IV heparin for 3 days to stabilize the clots followed by apixaban for 6 months. I would like the patient to undergo physical therapy again once he is cleared by the rack puncher to get out of bed. We will continue to monitor hematocrit. His potassium is low and I will defer to Dr. Guerrero for repletion. Subjective 24 Hr Interval Summary left groin pain Exam/Review of Systems Vital Signs Vitals Vital Signs Date Temp Pulse Resp B/P (MAP) Pulse Ox O2 O2 Flow FiO2 Time Delivery Rate 03/19/19 98.0 92 14 143/83 98 Nasal 2.0 12:01 (103) Cannula 03/19/19 27 02:16 Intake and Output 03/18/19 03/18/19 03/19/19 1515:00 23:00 07:00 IntakeIntake Total 1140 ml 230 ml 774.0 ml OutputOutput Total 100 ml 225 ml 975 ml BalanceBalance 1040 ml 5 ml -201.0 ml Exam Free Text/Dictation pain with left hip flexion and quad ext Results Result Diagram: 03/19/19 0553 03/19/19 0553 SUNDEEP OROPEZA MD March 19, 2019 13:03
[2019-03-19] MEDS: BISACODYL 10 MG SUPP PR PRN (18:08)
[2019-03-19] MEDS: MIRTAZAPINE 15 MG TAB PO SCH (20:45)
[2019-03-19] MEDS: ATORVASTATIN 10 MG TAB PO SCH (20:46)
[2019-03-19] MEDS ORDERED: NA PHOSPHATE/BIPHOS 133 ML ENEMA PR ONE (21:30)
[2019-03-19] MEDS: HYDROmorphONE 0.5 MG/0.5 ML SYG IV PRN (22:16)
[2019-03-20] VITALS (22 sets, daily range): BP systolic 98–173; BP diastolic 57–102; PULSE 75–100; RESP 12–25
[2019-03-20] MEDS: OXYCODONE/ACETAMINOPHEN (10/325) TAB PO PRN ×5 (00:19→22:39)
[2019-03-20] MEDS: HEPARIN 25000 UNITS/250 ML 250 ML IV SCH ×2 (04:55→23:04)
[2019-03-20] MEDS: LEVOTHYROXINE 125 MCG TAB PO SCH (06:25)
[2019-03-20] MEDS: PANTOPRAZOLE (EC) 40 MG TAB PO SCH (06:25)
--- NOTE | 2019-03-20 07:25 | CONS ---
Assessment/Plan Assessment/Plan Problems: (1) Drug-induced constipation Status: Acute Comment: No BM x 1 week. Cont. colace and senna. Fleet's prn. Will add methylnaltrexone 12 mcg sq daily. Expect good response to this. (2) Pulmonary embolism during current hospitalization Status: Acute Comment: On IV heparin drip x 72 hours (to complete tomorrow night). After that, pulmonary recommends apixiban x 6 m. Will defer to their management (3) DVT (deep venous thrombosis) Status: Acute Comment: On IV heparin drip x 72 hours (to complete tomorrow night). After that, pulmonary recommends apixiban x 6 m. Will defer to their management Qualifiers: DVT location: lower extremity Chronicity: acute Laterality: left (4) SOB (shortness of breath) Status: Acute Comment: Improving. Cont. anticoagulation therapy. O2 as needed. (5) Postoperative anemia Status: Acute Comment: Hgb stable. No need for transfusion. Initiate FeSO4. (6) Anxiety disorder Status: Chronic Comment: Cont. gabapentin, remeron, abilify w/ prn lorazepam Qualifiers: Anxiety disorder type: generalized anxiety disorder Qualified Codes: F41.1 - Generalized anxiety disorder (7) Dysthymia Status: Chronic Comment: Cont. gabapentin, remeron, abilify (8) Testicular hypofunction Status: Chronic Comment: Cont. testosterone (9) Acquired hypothyroidism Status: Chronic Comment: Cont. LT4 (10) Hyperlipidemia Status: Chronic Comment: Cont. statin Qualifiers: Hyperlipidemia type: pure hypercholesterolemia Qualified Codes: E78.00 - Pure hypercholesterolemia, unspecified (11) Gastro-esophageal reflux disease without esophagitis Status: Chronic Comment: Cont. pantoprazole (12) Obstructive sleep apnea Status: Chronic Comment: Cont. modafanil. CPAP O/N. (13) S/P lumbar fusion Onset Date: ~ 03/16/2019 Status: Acute Comment: Doing fair POD#4. Cont. post-op management, pain control and PT. Assessment/Plan (Daily) to remain in ICU until pulmonary feels pt. stable for transfer. Consultation Date/Type/Reason Admit Date/Time Mar 15, 2019 at 09:57 Initial Consult Date 03/19/19 Type of Consult Medicine Reason for Consultation Medical Management Requesting Provider: SUNDEEP OROPEZA MD Date/Time of Note DATE: 03/20/19 TIME: 07:14 24 HR Interval Summary Constitutional: no complaints Detailed Summary Respiratory: shortness of breath (mild) Cardiovascular: no complaints Gastrointestinal: pain (at surgical site), constipation (has not had BM in 1 week. Has been on senna and colace) Genitourinary: no complaints Musculoskeletal: back pain (mild) Neurologic: no complaints Exam/Review of Systems Exam Vitals VS - Last 72 Hours, by Label Date Temp Pulse Resp B/P (MAP) Pulse Ox O2 O2 Flow FiO2 Time Delivery Rate 03/20/19 85 19 128/71 99 Nasal 2.0 06:00 (90) Cannula 03/20/19 81 13 132/102 100 Nasal 2.0 05:00 (112) Cannula 03/20/19 87 20 150/67 89 Nasal 2.0 04:00 (94) Cannula 03/20/19 87 04:00 03/20/19 89 16 142/57 93 Nasal 2.0 03:00 (85) Cannula 03/20/19 94 25 94 02:01 03/20/19 92 19 128/68 93 Nasal 2.0 02:00 (88) Cannula 03/20/19 97 22 173/99 98 Nasal 2.0 01:01 (123) Cannula 03/20/19 94 21 97 01:00 03/20/19 91 15 129/74 98 Nasal 2.0 00:01 (92) Cannula 03/20/19 98.2 94 19 100 00:00 03/20/19 93 00:00 03/19/19 93 16 121/104 99 Nasal 2.0 23:00 (110) Cannula 03/19/19 85 15 120/59 Nasal 2.0 22:00 (79) Cannula 03/19/19 89 13 119/82 98 Nasal 2.0 21:00 (94) Cannula 03/19/19 Nasal 2.0 20:05 Cannula 03/19/19 88 20:00 03/19/19 98.9 94 16 116/80 99 Nasal 2.0 20:00 (92) Cannula 03/19/19 104 125/82 95 Nasal 2.0 19:00 (96) Cannula 03/19/19 95 16 116/75 93 Nasal 2.0 18:00 (89) Cannula 03/19/19 2.0 17:22 03/19/19 91 15 138/71 96 Nasal 2.0 17:00 (93) Cannula 03/19/19 98.2 94 23 124/67 88 Nasal 2.0 16:00 (86) Cannula 03/19/19 94 16:00 03/19/19 92 123/66 98 Nasal 2.0 15:01 (85) Cannula 03/19/19 15 110/57 97 Nasal 2.0 14:00 (74) Cannula 03/19/19 100 14 139/72 98 Nasal 2.0 13:00 (94) Cannula 03/19/19 98.0 92 14 143/83 98 Nasal 2.0 12:01 (103) Cannula 03/19/19 95 12:00 03/19/19 87 11 81/36 (51) 97 Nasal 2.0 11:00 Cannula 03/19/19 14 107/73 100 Nasal 2.0 10:00 (84) Cannula 03/19/19 91 13 113/75 97 Nasal 2.0 09:00 (88) Cannula 03/19/19 96 08:00 03/19/19 Nasal 2.0 08:00 Cannula 03/19/19 91 14 131/79 95 Nasal 2.0 08:00 (96) Cannula 03/19/19 98.2 86 22 113/81 98 Nasal 2.0 07:00 (92) Cannula 03/19/19 88 12 118/64 98 Nasal 2.0 06:00 (82) Cannula 03/19/19 87 15 105/64 94 BIPAP 05:00 (78) 03/19/19 98.1 85 14 94/57 (69) 97 BIPAP 04:00 03/19/19 89 04:00 03/19/19 90 11 95/56 (69) 94 BIPAP 03:00 03/19/19 97 2.0 27 02:16 03/19/19 93 12 118/67 97 BIPAP 02:00 (84) 03/19/19 100 14 120/64 92 BIPAP 01:00 (82) 03/19/19 98.5 100 13 129/71 95 Nasal 2.0 00:00 (90) Cannula 03/19/19 100 00:00 03/18/19 Nasal 2.0 23:00 Cannula 03/18/19 93 112/74 97 Nasal 2.0 23:00 (87) Cannula 03/18/19 90 22:42 03/18/19 98.8 96 113/62 96 Nasal 2.0 22:35 (79) Cannula 03/18/19 96 22:34 03/18/19 98.5 96 20 111/63 97 Nasal 2.0 22:02 (79) Cannula 03/18/19 Nasal 2.0 21:00 Cannula 03/18/19 99.1 99 20 107/59 93 Nasal 2.0 20:00 (75) Cannula 03/18/19 98.0 107 20 131/63 94 Nasal 2.0 15:59 (85) Cannula 03/18/19 98.4 112 22 126/64 95 Nasal 2.0 10:33 (84) Cannula 03/18/19 18 10:00 03/18/19 18 09:00 03/18/19 98.2 94 18 103/59 94 Nasal 2.0 08:31 (74) Cannula 03/18/19 98.2 102 17 120/61 94 02:27 (80) 03/17/19 16 23:40 03/17/19 18 22:33 03/17/19 Nasal 2.0 22:22 Cannula 03/17/19 99.3 104 18 138/72 97 20:08 (94) 03/17/19 98.6 106 20 113/64 97 14:55 (80) 03/17/19 98.7 116 20 113/64 94 08:12 (80) Vital Signs Date Temp Pulse Resp B/P (MAP) Pulse Ox O2 O2 Flow FiO2 Time Delivery Rate 03/20/19 85 19 128/71 99 Nasal 2.0 06:00 (90) Cannula 03/20/19 98.2 00:00 03/19/19 27 02:16 Intake and Output 03/19/19 03/19/19 03/20/19 1515:00 23:00 07:00 IntakeIntake Total 1377.7 ml 1361.5 ml 942.5 ml OutputOutput Total 1270 ml 1150 ml 1300 ml BalanceBalance 107.7 ml 211.5 ml -357.5 ml Constitutional: alert, oriented, obese Psych: no complaints, nl mood/affect Respiratory: clear to auscultation, normal air movement Cardiovascular: regular rate and rhythm, nl pulses; No edema, No murmurs/extra sounds, No rub Gastrointestinal: soft, nl liver, spleen, bowel sounds, tender (at surgical site); No non-tender, No mass, No rebound or guarding Musculoskeletal: nl extremities to inspection Extremities: normal pulses; No cyanosis, No clubbing, No edema Neurological: BURNER TECHNICIAN II-XII intact, nl mental status, nl speech, nl strength Results Result Diagram: 03/20/19 0435 03/20/19 0435 Results 24hrs Laboratory Tests Test 03/19/19 14:11 03/19/19 19:33 03/20/19 02:52 03/20/19 04:35 Activated 80.7 *H 63.3 H 94.2 *H 104.8 *H Partial Thromboplast Time White Blood Count 4.4 #L Red Blood Count 2.60 L Hemoglobin 8.1 L Hematocrit 24.4 L Mean Corpuscular Volume 93.8 Mean Corpuscular 31.2 Hemoglobin Mean Corpuscular 33.2 Hemoglobin Concent Red Cell Distribution 14.2 Width Platelet Count 158 Mean Platelet Volume 8.9 Immature Granulocytes % 0.700 H Neutrophils % 60.3 Lymphocytes % 19.5 Monocytes % 12.6 H Eosinophils % 6.7 Basophils % 0.2 Nucleated Red Blood 0.0 Cells % Immature Granulocytes # 0.030 Neutrophils # 2.6 Lymphocytes # 0.9 Monocytes # 0.6 Eosinophils # 0.3 Basophils # 0.0 Nucleated Red Blood 0.0 Cells # Sodium Level 140 Potassium Level 3.7 Chloride Level 106 Carbon Dioxide Level 31 Anion Gap 3 L Blood Urea Nitrogen 8 Creatinine 0.78 Est Glomerular Filtrat > 60 Rate mL/min Glucose Level 132 Calcium Level 8.4 Magnesium Level 2.2 Total Bilirubin 0.3 Direct Bilirubin 0.00 Indirect Bilirubin 0.3 Aspartate Amino 38 Transf (AST/SGOT) Alanine 36 Aminotransferase (ALT/SG PT) Alkaline Phosphatase 83 Total Protein 5.1 L Albumin 2.6 L Globulin 2.50 Albumin/Globulin Ratio 1.04 Medications Medication Current Medications Aripiprazole (Abilify) 5 mg DAILY PO Last administered on 03/19/19at 09:21; Admin Dose 5 MG; Start 03/16/19 at 09:00 Gabapentin (Neurontin) 1,800 mg QHS PO Last administered on 03/19/19at 20:46; Admin Dose 1,800 MG; Start 03/15/19 at 21:00 Gabapentin (Neurontin) 600 mg QAM PO Last administered on 03/19/19 08:18; Admin Dose 600 MG; Start 03/16/19 at 09:00 Levothyroxine Sodium (Synthroid) 125 mcg BEFORE BREAKFAST PO Last administered on 03/20/19 06:25; Admin Dose 125 MCG; Start 03/16/19 at 07:00 Mirtazapine (Remeron) 30 mg HS PO Last administered on 03/19/19 20:45; Admin Dose 30 MG; Start 03/15/19 at 21:00 Pantoprazole (Protonix Tab) 40 mg DAILY@06 PO Last administered on 03/20/19 06:25; Admin Dose 40 MG; Start 03/16/19 at 06:00 Zolpidem Tartrate (Ambien) 5 mg HS PRN PO INSOMNIA; Start 03/15/19 at 23:00 Atorvastatin Calcium (Lipitor) 10 mg DAILY@21 PO Last administered on 03/19/19 20:46; Admin Dose 10 MG; Start 03/15/19 at 23:00 Potassium Chloride/Dextrose/ Sod Cl 1,000 ml @ 100 mls/hr Q10H IV Last administered on 03/19/19 21:28; Admin Dose 100 MLS/HR; Start 03/16/19 at 13:57 Oxycodone/ Acetaminophen (Endocet (10/ 325)) 1 tab Q4H PRN PO .PAIN 5-10; Start 03/16/19 at 14:00 Oxycodone/ Acetaminophen (Endocet (10/ 325)) 2 tab Q4H PRN PO .PAIN 6-10 Last administered on 03/20/19 00:19; Admin Dose 2 TAB; Start 03/16/19 at 14:00 Hydromorphone HCl (Dilaudid) 0.2 mg Q1H PRN IV .BREAKTHROUGH PAIN Last administered on 03/19/19 22:16; Admin Dose 0.2 MG; Start 03/16/19 at 14:00 Ondansetron HCl (Zofran Inj) 4 mg Q6H PRN IV NAUSEA/VOMITING Last administered on 03/17/19 17:21; Admin Dose 4 MG; Start 03/16/19 at 14:00 Bisacodyl (Dulcolax Supp) 10 mg DAILY PRN [place] .CONSTIPATION Last administered on 03/19/19 18:08; Admin Dose 10 MG; Start 03/16/19 at 14:00 Docusate Sodium (Colace) 100 mg BID PO Last administered on 03/19/19 20:45; A dmin Dose 100 MG; Start 03/16/19 at 21:00 Al Hydrox/Mg Hydrox/Simethicone (Mag-Al Plus) 15 ml Q6H PRN PO .CONSTIPATION/DYSPEPSIA; Start 03/16/19 at 14:00 Acetaminophen (Tylenol Tab) 650 mg Q4H PRN PO TORRES OR TEMP GREATER THAN 101.3F; Start 03/16/19 at 14:00 Cyclobenzaprine HCl (Flexeril) 5 mg TID PRN PO .MUSCLE SPASM Last administered on 03/18/19 12:55; Admin Dose 5 MG; Start 03/16/19 at 14:00 Phenol (Cepastat Lozenge) 1 lozenge PRN PRN [place] .SORE THROAT Last administered on 03/18/19 04:54; Admin Dose 1 LOZENGE; Start 03/16/19 at 14:00 Diphenhydramine HCl (Benadryl) 25 mg Q6H PRN PO .ITCHING Last administered on 03/18/19 20:32; Admin Dose 25 MG; Start 03/16/19 at 14:00 Diphenhydramine HCl (Benadryl) 25 mg Q6H PRN IV .ITCHING; Start 03/16/19 at 14:00 Naloxone HCl (Narcan) 0.2 mg Q2M PRN IV .RR 8 BREATHS/MIN OR LESS; Start 03/16/19 at 14:00 Miscellaneous Information 1. Hold DIRECTOR OF FIRST IMPRESSIONS at 1,000... DIRECTOR OF FIRST IMPRESSIONS IV ; Start 03/16/19 at 14:00 Testosterone (Androgel) 5 gm DAILY TOP Last administered on 03/19/19 09:21; Admin Dose 5 GM; Start 03/17/19 at 09:00 Hydromorphone HCl (Dilaudid DIRECTOR OF FIRST IMPRESSIONS) DIRECTOR OF FIRST IMPRESSIONS to be started in PACU Q4PCA IV Last administered on 03/17/19 23:22; Admin Dose 6 MG; Start 03/16/19 at 23:00 Modafinil (Provigil) 400 mg DAILY PO Last administered on 03/19/19 10:37; Admin Dose 400 MG; Start 03/17/19 at 12:00 Heparin Sodium (Porcine) (Heparin (1000 Units/ml)) 7,700 unit PER PROTOCOL PRN IV aPTT<47; Start 03/18/19 at 22:00 Heparin Sodium (Porcine) (Heparin (1000 Units/ml)) 3,900 unit PER PROTOCOL PRN IV aPTT<47-57; Start 03/18/19 at 22:00 Heparin Sodium (Porcine) 250 ml @ 17.5 mls/hr PER PROTOCOL IV Last administered on 03/20/19at 04:55; Admin Dose 17.5 MLS/HR; Start 03/18/19 at 22:00 Lorazepam (Ativan) 2 mg TID PRN PO ANXIETY Last administered on 03/19/19at 20:47; Admin Dose 2 MG; Start 03/19/19 at 12:30 Methylnaltrexone [place] (Relistor) 12 mg DAILY [place] ; Start 03/20/19 at 09:00 MARION SUNSHINE MD March 20, 2019 07:25
[2019-03-20] MEDS: D5W-0.45 NACL + KCL 20 MEQ 1,000 ML IV SCH (07:35)
[2019-03-20] MEDS ORDERED: NA PHOSPHATE/BIPHOS 133 ML ENEMA PR PRN (09:00)
--- NOTE | 2019-03-20 09:33 | PN ---
Date/Time of Note Date/Time of Note DATE: 03/20/19 TIME: 09:29 Assessment/Plan Lines/Catheters IV Catheter Type (from Nrsg): Saline Lock Ross in Place (from Nrsg): No Assessment/Plan Assessment/Plan ortho note - s/p L2-S1 fusion pulmonary team to manage PE/DVT, plan is to complete 72 hrs of heparin then transition to apixiban anemia - Hct stable, Dr. Nur ordered FESO4 potassium normalized 3.7 plan to transfer back to [facility] and plan to resume PT when cleared by pulmonary and primary teams pain management, routine care Subjective 24 Hr Interval Summary left groin discomfort improving c/o post-operative back pain passing gas, no BM yet wants to go home denies CP/SOB Exam/Review of Systems Vital Signs Vitals Vital Signs Date Temp Pulse Resp B/P (MAP) Pulse Ox O2 O2 Flow FiO2 Time Delivery Rate 03/20/19 75 08:00 03/20/19 128/71 99 Nasal 2.0 06:00 (90) Cannula 03/20/19 98.2 00:00 03/19/19 27 02:16 Intake and Output 03/19/19 03/19/19 03/20/19 1515:00 23:00 07:00 IntakeIntake Total 1377.7 ml 1361.5 ml 1042.5 ml OutputOutput Total 1270 ml 1150 ml 1300 ml BalanceBalance 107.7 ml 211.5 ml -257.5 ml Exam Free Text/Dictation AOx3 comfortable exam unchanged - left quad, TA and EHL strength and sensation intact abdominal, left flank, lumbar incisions c/d/i Results Result Diagram: 03/20/19 0435 03/20/19 0435 ATA CAMP PA-C March 20, 2019 09:32
[2019-03-20] MEDS: ARIPIPRAZOLE 5 MG TAB PO SCH (09:39)
[2019-03-20] MEDS: FERROUS SULFATE (EC) 325 MG TAB PO SCH ×2 (09:39→20:29)
[2019-03-20] MEDS: METHYLNALTREXONE 12 MG/0.6 ML VIAL SC SCH (09:39)
[2019-03-20] MEDS: GABAPENTIN 300 MG CAP PO SCH ×2 (09:39→20:30)
[2019-03-20] MEDS: DOCUSATE SODIUM 100 MG CAP PO SCH ×2 (09:39→20:29)
[2019-03-20] MEDS: TESTOSTERONE 1% GEL 5 GM PACKET TOP SCH (10:15)
[2019-03-20] MEDS: MODAFINIL 200 MG TAB PO SCH (10:16)
[2019-03-20] MEDS: HYDROmorphONE 0.5 MG/0.5 ML SYG IV PRN (10:42)
--- NOTE | 2019-03-20 11:00 | CONS ---
Assessment/Plan Assessment/Plan Assessment/Plan (Daily) Assessment Acute pulmonary emboli Status post spinal surgery Hypertension Dyslipidemia Anxiety Plan: heparin gtt AC thereafter Consultation Date/Type/Reason Admit Date/Time Mar 15, 2019 at 09:57 Initial Consult Date 03/19/19 Type of Consult Cardiology Requesting Provider: SUNDEEP OROPEZA MD Date/Time of Note DATE: 03/20/19 TIME: 10:58 24 HR Interval Summary Free Text/Dictation reports back pain, reports "sporadic" breathing which he thinks is pain induced, able to lie supine Detailed Summary Respiratory: shortness of breath Cardiovascular: no complaints Gastrointestinal: no complaints Musculoskeletal: back pain Neurologic: no complaints Endocrine: no complaints Exam/Review of Systems Vital Signs Vitals Vital Signs Date Temp Pulse Resp B/P (MAP) Pulse Ox O2 O2 Flow FiO2 Time Delivery Rate 03/20/19 75 08:00 03/20/19 128/71 99 Nasal 2.0 06:00 (90) Cannula 03/20/19 98.2 00:00 03/19/19 27 02:16 Intake and Output 03/19/19 03/19/19 03/20/19 1515:00 23:00 07:00 IntakeIntake Total 1377.7 ml 1361.5 ml 1042.5 ml OutputOutput Total 1270 ml 1150 ml 1300 ml BalanceBalance 107.7 ml 211.5 ml -257.5 ml Exam Constitutional: alert, oriented Psych: anxiety Head: normocephalic, atraumatic Neck: supple Respiratory: clear to auscultation Cardiovascular: regular rate and rhythm Gastrointestinal: soft Musculoskeletal: nl extremities to inspection, range of motion Extremities: normal pulses Labs Result Diagram: 03/20/19 0435 03/20/19 0435 Results 24hrs Laboratory Tests Test 03/19/19 14:11 03/19/19 19:33 03/20/19 02:52 03/20/19 04:35 Activated 80.7 *H 63.3 H 94.2 *H 104.8 *H Partial Thromboplast Time White Blood Count 4.4 #L Red Blood Count 2.60 L Hemoglobin 8.1 L Hematocrit 24.4 L Mean Corpuscular Volume 93.8 Mean Corpuscular 31.2 Hemoglobin Mean Corpuscular 33.2 Hemoglobin Concent Red Cell Distribution 14.2 Width Platelet Count 158 Mean Platelet Volume 8.9 Immature Granulocytes % 0.700 H Neutrophils % 60.3 Lymphocytes % 19.5 Monocytes % 12.6 H Eosinophils % 6.7 Basophils % 0.2 Nucleated Red Blood 0.0 Cells % Immature Granulocytes # 0.030 Neutrophils # 2.6 Lymphocytes # 0.9 Monocytes # 0.6 Eosinophils # 0.3 Basophils # 0.0 Nucleated Red Blood 0.0 Cells # Sodium Level 140 Potassium Level 3.7 Chloride Level 106 Carbon Dioxide Level 31 Anion Gap 3 L Blood Urea Nitrogen 8 Creatinine 0.78 Est Glomerular Filtrat > 60 Rate mL/min Glucose Level 132 Calcium Level 8.4 Magnesium Level 2.2 Total Bilirubin 0.3 Direct Bilirubin 0.00 Indirect Bilirubin 0.3 Aspartate Amino 38 Transf (AST/SGOT) Alanine 36 Aminotransferase (ALT/SG PT) Alkaline Phosphatase 83 Total Protein 5.1 L Albumin 2.6 L Globulin 2.50 Albumin/Globulin Ratio 1.04 Medications Medications Current Medications Aripiprazole (Abilify) 5 mg DAILY PO Last administered on 03/20/19 09:39; Admin Dose 5 MG; Start 03/16/19 at 09:00 Gabapentin (Neurontin) 1,800 mg QHS PO Last administered on 03/19/19 20:46; Admin Dose 1,800 MG; Start 03/15/19 at 21:00 Gabapentin (Neurontin) 600 mg QAM PO Last administered on 03/20/19 09:39; Admin Dose 600 MG; Start 03/16/19 at 09:00 Levothyroxine Sodium (Synthroid) 125 mcg BEFORE BREAKFAST PO Last administered on 03/20/19 06:25; Admin Dose 125 MCG; Start 03/16/19 at 07:00 Mirtazapine (Remeron) 30 mg HS PO Last administered on 03/19/19 20:45; Admin Dose 30 MG; Start 03/15/19 at 21:00 Pantoprazole (Protonix Tab) 40 mg DAILY@06 PO Last administered on 03/20/19 06:25; Admin Dose 40 MG; Start 03/16/19 at 06:00 Zolpidem Tartrate (Ambien) 5 mg HS PRN PO INSOMNIA; Start 03/15/19 at 23:00 Atorvastatin Calcium (Lipitor) 10 mg DAILY@21 PO Last administered on 03/19/19 20:46; Admin Dose 10 MG; Start 03/15/19 at 23:00 Potassium Chloride/Dextrose/ Sod Cl 1,000 ml @ 100 mls/hr Q10H IV Last administered on 03/20/19 07:35; Admin Dose 100 MLS/HR; Start 03/16/19 at 13:57 Oxycodone/ Acetaminophen (Endocet (10/ 325)) 1 tab Q4H PRN PO .PAIN 5-10; Start 03/16/19 at 14:00 Oxycodone/ Acetaminophen (Endocet (10/ 325)) 2 tab Q4H PRN PO .PAIN 6-10 Last administered on 03/20/19 00:19; Admin Dose 2 TAB; Start 03/16/19 at 14:00 Hydromorphone HCl (Dilaudid) 0.2 mg Q1H PRN IV .BREAKTHROUGH PAIN Last administered on 03/20/19 10:42; Admin Dose 0.2 MG; Start 03/16/19 at 14:00 Ondansetron HCl (Zofran Inj) 4 mg Q6H PRN IV NAUSEA/VOMITING Last administered on 03/17/19 17:21; Admin Dose 4 MG; Start 03/16/19 at 14:00 Bisacodyl (Dulcolax Supp) 10 mg DAILY PRN [place] .CONSTIPATION Last administered on 03/19/19 18:08; Admin Dose 10 MG; Start 03/16/19 at 14:00 Docusate Sodium (Colace) 100 mg BID PO Last administered on 03/20/19 09:39; A dmin Dose 100 MG; Start 03/16/19 at 21:00 Al Hydrox/Mg Hydrox/Simethicone (Mag-Al Plus) 15 ml Q6H PRN PO .CONSTIPATION/DYSPEPSIA Last administered on 03/20/19 09:39; Admin Dose 15 ML; Start 03/16/19 at 14:00 Acetaminophen (Tylenol Tab) 650 mg Q4H PRN PO TORRES OR TEMP GREATER THAN 101.3F; Start 03/16/19 at 14:00 Cyclobenzaprine HCl (Flexeril) 5 mg TID PRN PO .MUSCLE SPASM Last administered on 03/18/19 12:55; Admin Dose 5 MG; Start 03/16/19 at 14:00 Phenol (Cepastat Lozenge) 1 lozenge PRN PRN [place] .SORE THROAT Last administered on 03/18/19 04:54; Admin Dose 1 LOZENGE; Start 03/16/19 at 14:00 Diphenhydramine HCl (Benadryl) 25 mg Q6H PRN PO .ITCHING Last administered on 03/18/19 20:32; Admin Dose 25 MG; Start 03/16/19 at 14:00 Diphenhydramine HCl (Benadryl) 25 mg Q6H PRN IV .ITCHING; Start 03/16/19 at 14:00 Naloxone HCl (Narcan) 0.2 mg Q2M PRN IV .RR 8 BREATHS/MIN OR LESS; Start 03/16/19 at 14:00 Miscellaneous Information 1. Hold INDOOR LANDSCAPE ARCHITECT at 1,000... INDOOR LANDSCAPE ARCHITECT IV ; Start 03/16/19 at 14:00 Testosterone (Androgel) 5 gm DAILY TOP Last administered on 03/20/19 10:15; Admin Dose 5 GM; Start 03/17/19 at 09:00 Hydromorphone HCl (Dilaudid INDOOR LANDSCAPE ARCHITECT) INDOOR LANDSCAPE ARCHITECT to be started in PACU Q4PCA IV Last administered on 03/17/19 23:22; Admin Dose 6 MG; Start 03/16/19 at 23:00 Modafinil (Provigil) 400 mg DAILY PO Last administered on 03/20/19 10:16; Admin Dose 400 MG; Start 03/17/19 at 12:00 Heparin Sodium (Porcine) (Heparin (1000 Units/ml)) 7,700 unit PER PROTOCOL PRN IV aPTT<47; Start 03/18/19 at 22:00 Heparin Sodium (Porcine) (Heparin (1000 Units/ml)) 3,900 unit PER PROTOCOL PRN IV aPTT<47-57; Start 03/18/19 at 22:00 Heparin Sodium (Porcine) 250 ml @ 17.5 mls/hr PER PROTOCOL IV Last administered on 03/20/19 04:55; Admin Dose 17.5 MLS/HR; Start 03/18/19 at 22:00 Lorazepam (Ativan) 2 mg TID PRN PO ANXIETY Last administered on 03/19/19 20:47; Admin Dose 2 MG; Start 03/19/19 at 12:30 Methylnaltrexone [place] (Relistor) 12 mg DAILY SC Last administered on 03/20/19at 09:39; Admin Dose 12 MG; Start 03/20/19 at 09:00 Ferrous Sulfate (Ferrous Sulfate (Ec)) 325 mg BID PO Last administered on 03/20/19at 09:39; Admin Dose 325 MG; Start 03/20/19 at 09:00 Sodium Biphosphate/ Sodium Phosphate (Fleet Enema) 133 ml DAILY PRN [place] CONSTIPATION; Start 03/20/19 at 09:00 VALDEZ SUH MD March 20, 2019 11:00
--- NOTE | 2019-03-20 12:11 | CONS ---
Consult Date/Type/Reason Admit Date/Time Mar 15, 2019 at 09:57 Initial Consult Date 03/19/19 Type of Consultation: Pulm/CCM Requesting Provider: SUNDEEP OROPEZA MD Date/Time of Note DATE: 03/20/19 TIME: 12:07 Subjective Doing well. Mild dyspnea with minimal exertion noted. Objective Vitals Vital Signs Date Temp Pulse Resp B/P (MAP) Pulse Ox O2 O2 Flow FiO2 Time Delivery Rate 03/20/19 89 15 120/73 97 Room Air 11:00 (89) 03/20/19 98.8 08:00 03/20/19 2.0 06:00 03/19/19 27 02:16 Intake and Output 03/19/19 03/19/19 03/20/19 1515:00 23:00 07:00 IntakeIntake Total 1377.7 ml 1361.5 ml 1042.5 ml OutputOutput Total 1270 ml 1150 ml 1300 ml BalanceBalance 107.7 ml 211.5 ml -257.5 ml Exam HEENT: Neck supple; no JVD; no LAD CVS: RRR, S1 and S2 CHEST: Mild end-expiratory wheezing b/l ABD: Soft, NT, + BS EXT: No c/c/e Results/Medications Result Diagram: 03/20/19 0435 03/20/19 0435 Results 24 hrs Laboratory Tests Test 03/19/19 14:11 03/19/19 19:33 03/20/19 02:52 03/20/19 04:35 Activated 80.7 *H 63.3 H 94.2 *H 104.8 *H Partial Thromboplast Time White Blood Count 4.4 #L Red Blood Count 2.60 L Hemoglobin 8.1 L Hematocrit 24.4 L Mean Corpuscular Volume 93.8 Mean Corpuscular 31.2 Hemoglobin Mean Corpuscular 33.2 Hemoglobin Concent Red Cell Distribution 14.2 Width Platelet Count 158 Mean Platelet Volume 8.9 Immature Granulocytes % 0.700 H Neutrophils % 60.3 Lymphocytes % 19.5 Monocytes % 12.6 H Eosinophils % 6.7 Basophils % 0.2 Nucleated Red Blood 0.0 Cells % Immature Granulocytes # 0.030 Neutrophils # 2.6 Lymphocytes # 0.9 Monocytes # 0.6 Eosinophils # 0.3 Basophils # 0.0 Nucleated Red Blood 0.0 Cells # Sodium Level 140 Potassium Level 3.7 Chloride Level 106 Carbon Dioxide Level 31 Anion Gap 3 L Blood Urea Nitrogen 8 Creatinine 0.78 Est Glomerular Filtrat > 60 Rate mL/min Glucose Level 132 Calcium Level 8.4 Magnesium Level 2.2 Total Bilirubin 0.3 Direct Bilirubin 0.00 Indirect Bilirubin 0.3 Aspartate Amino 38 Transf (AST/SGOT) Alanine 36 Aminotransferase (ALT/SG PT) Alkaline Phosphatase 83 Total Protein 5.1 L Albumin 2.6 L Globulin 2.50 Albumin/Globulin Ratio 1.04 Home Meds Reported Medications Testosterone* (Androgel*) 1.62%-75gm Gel.planishing hammer operator, 60.75 MG TD DAILY, EA 03/15/19 Docusate Sodium* (Dok*) 100 Mg Tablet, 100 MG PO BID, #60 CAP 03/15/19 Oxycodone HCl/Acetaminophen (Oxycodone-Acetaminophen 10-325) 1 Each Tablet, 1 EACH PO EVERY 4-6 HOURS PRN for PAIN LEVEL 1-5, TAB 03/15/19 Mirtazapine* (Mirtazapine*) 30 Mg Tablet, 30 MG PO HS, TAB 03/15/19 Gabapentin* (Gabapentin*) 600 Mg Tablet, 1800 MG PO QHS, #90 TAB 03/15/19 Gabapentin* (Gabapentin*) 600 Mg Tablet, 600 MG PO QAM, #60 TAB 03/15/19 Simvastatin* (Zocor*) 20 Mg Tablet, 20 MG PO QHS, #30 TAB 03/15/19 Dexlansoprazole (Dexilant) 60 Mg Cap., 60 MG PO DAILY, #30 CAP 03/15/19 Eszopiclone (Lunesta) 2 Mg Tab, 2 MG PO HS PRN for INSOMNIA, TAB 03/15/19 Aripiprazole* (Abilify*) 5 Mg Tab, 5 MG PO DAILY, #30 TAB 03/15/19 Levothyroxine Sodium* (Levoxyl*) 125 Mcg Tablet, 125 MCG PO BEFORE BREAKFAST, #30 TAB 03/15/19 Modafinil* (Provigil*) 100 Mg Tablet, 400 MG PO QAM, TAB 03/15/19 Lorazepam* (Lorazepam*) 1 Mg Tablet, 1 MG PO TID PRN for ANXIETY, #30 TAB 03/15/19 Medications Current Medications Aripiprazole (Abilify) 5 mg DAILY PO Last administered on 03/20/19 09:39; Admin Dose 5 MG; Start 03/16/19 at 09:00 Gabapentin (Neurontin) 1,800 mg QHS PO Last administered on 03/19/19 20:46; Admin Dose 1,800 MG; Start 03/15/19 at 21:00 Gabapentin (Neurontin) 600 mg QAM PO Last administered on 03/20/19 09:39; Admin Dose 600 MG; Start 03/16/19 at 09:00 Levothyroxine Sodium (Synthroid) 125 mcg BEFORE BREAKFAST PO Last administered on 03/20/19 06:25; Admin Dose 125 MCG; Start 03/16/19 at 07:00 Mirtazapine (Remeron) 30 mg HS PO Last administered on 03/19/19 20:45; Admin Dose 30 MG; Start 03/15/19 at 21:00 Pantoprazole (Protonix Tab) 40 mg DAILY@06 PO Last administered on 03/20/19 06:25; Admin Dose 40 MG; Start 03/16/19 at 06:00 Zolpidem Tartrate (Ambien) 5 mg HS PRN PO INSOMNIA; Start 03/15/19 at 23:00 Atorvastatin Calcium (Lipitor) 10 mg DAILY@21 PO Last administered on 03/19/19 20:46; Admin Dose 10 MG; Start 03/15/19 at 23:00 Potassium Chloride/Dextrose/ Sod Cl 1,000 ml @ 100 mls/hr Q10H IV Last administered on 03/20/19 07:35; Admin Dose 100 MLS/HR; Start 03/16/19 at 13:57 Oxycodone/ Acetaminophen (Endocet (10/ 325)) 1 tab Q4H PRN PO .PAIN 5-10; Start 03/16/19 at 14:00 Oxycodone/ Acetaminophen (Endocet (10/ 325)) 2 tab Q4H PRN PO .PAIN 6-10 Last administered on 03/20/19 11:22; Admin Dose 2 TAB; Start 03/16/19 at 14:00 Hydromorphone HCl (Dilaudid) 0.2 mg Q1H PRN IV .BREAKTHROUGH PAIN Last administered on 03/20/19 10:42; Admin Dose 0.2 MG; Start 03/16/19 at 14:00 Ondansetron HCl (Zofran Inj) 4 mg Q6H PRN IV NAUSEA/VOMITING Last administered on 03/17/19 17:21; Admin Dose 4 MG; Start 03/16/19 at 14:00 Bisacodyl (Dulcolax Supp) 10 mg DAILY PRN [place] .CONSTIPATION Last administered on 03/19/19 18:08; Admin Dose 10 MG; Start 03/16/19 at 14:00 Docusate Sodium (Colace) 100 mg BID PO Last administered on 03/20/19 09:39; Admin Dose 100 MG; Start 03/16/19 at 21:00 Al Hydrox/Mg Hydrox/Simethicone (Mag-Al Plus) 15 ml Q6H PRN PO .CONSTIPATION/DYSPEPSIA Last administered on 03/20/19 09:39; Admin Dose 15 ML; Start 03/16/19 at 14:00 Acetaminophen (Tylenol Tab) 650 mg Q4H PRN PO TORRES OR TEMP GREATER THAN 101.3F; Start 03/16/19 at 14:00 Cyclobenzaprine HCl (Flexeril) 5 mg TID PRN PO .MUSCLE SPASM Last administered on 03/18/19 12:55; Admin Dose 5 MG; Start 03/16/19 at 14:00 Phenol (Cepastat Lozenge) 1 lozenge PRN PRN [place] .SORE THROAT Last administered on 03/18/19 04:54; Admin Dose 1 LOZENGE; Start 03/16/19 at 14:00 Diphenhydramine HCl (Benadryl) 25 mg Q6H PRN PO .ITCHING Last administered on 03/18/19 20:32; Admin Dose 25 MG; Start 03/16/19 at 14:00 Diphenhydramine HCl (Benadryl) 25 mg Q6H PRN IV .ITCHING; Start 03/16/19 at 14:00 Naloxone HCl (Narcan) 0.2 mg Q2M PRN IV .RR 8 BREATHS/MIN OR LESS; Start 03/16/19 at 14:00 Miscellaneous Information 1. Hold COMMUNITY SUPPORT SPECIALIST at 1,000... COMMUNITY SUPPORT SPECIALIST IV ; Start 03/16/19 at 14:00 Testosterone (Androgel) 5 gm DAILY TOP Last administered on 03/20/19 10:15; Admin Dose 5 GM; Start 03/17/19 at 09:00 Hydromorphone HCl (Dilaudid COMMUNITY SUPPORT SPECIALIST) COMMUNITY SUPPORT SPECIALIST to be started in PACU Q4PCA IV Last administered on 03/17/19 23:22; Admin Dose 6 MG; Start 03/16/19 at 23:00 Modafinil (Provigil) 400 mg DAILY PO Last administered on 03/20/19 10:16; Admin Dose 400 MG; Start 03/17/19 at 12:00 Heparin Sodium (Porcine) (Heparin (1000 Units/ml)) 7,700 unit PER PROTOCOL PRN IV aPTT<47; Start 03/18/19 at 22:00 Heparin Sodium (Porcine) (Heparin (1000 Units/ml)) 3,900 unit PER PROTOCOL PRN IV aPTT<47-57; Start 03/18/19 at 22:00 Heparin Sodium (Porcine) 250 ml @ 17.5 mls/hr PER PROTOCOL IV Last administered on 03/20/19 04:55; Admin Dose 17.5 MLS/HR; Start 03/18/19 at 22:00 Lorazepam (Ativan) 2 mg TID PRN PO ANXIETY Last administered on 03/19/19 20:47; Admin Dose 2 MG; Start 03/19/19 at 12:30 Methylnaltrexone [place] (Relistor) 12 mg DAILY SC Last administered on 03/20/19 09:39; Admin Dose 12 MG; Start 03/20/19 at 09:00 Ferrous Sulfate (Ferrous Sulfate (Ec)) 325 mg BID PO Last administered on 03/20/19 09:39; Admin Dose 325 MG; Start 03/20/19 at 09:00 Sodium Biphosphate/ Sodium Phosphate (Fleet Enema) 133 ml DAILY PRN [place] CONSTIPATION; Start 03/20/19 at 09:00 Assessment/Plan Assessment/Plan (Daily) IMP: 1. Acute PE--provoked. Tolerating heparin gtt 2. s/p spina fusion surgery 3. Anxiety d/o 4. HTN 5. HLD RECS: 1. Continue heparin gtt for now 2. Will discuss initiation of DOAC with spine surgery 3. Mobilize OOB 4. PT/OT 5. D/C IVFs 6. Limit sedatives/narcotics/ambien 35 min cc time SOCORRO BIANCHI MD March 20, 2019 12:11
--- NOTE | 2019-03-20 14:04 | PN ---
Date/Time of Note Date/Time of Note DATE: 03/20/19 TIME: 14:02 Assessment/Plan Lines/Catheters IV Catheter Type (from Nrsg): Peripheral IV Ross in Place (from Nrsg): No Assessment/Plan Assessment/Plan SP ALIF Acute PE Right lung Hemodynamically stable HR 98, BP 120/63 No SOB will continue anticoagulation Subjective 24 Hr Interval Summary Constitutional: improved Pain Control: mild Exam/Review of Systems Vital Signs Vitals Vital Signs Date Temp Pulse Resp B/P (MAP) Pulse Ox O2 O2 Flow FiO2 Time Delivery Rate 03/20/19 91 12:00 03/20/19 15 120/73 97 Room Air 11:00 (89) 03/20/19 98.8 08:00 03/20/19 2.0 06:00 03/19/19 27 02:16 Intake and Output 03/19/19 03/19/19 03/20/19 1515:00 23:00 07:00 IntakeIntake Total 1377.7 ml 1361.5 ml 1042.5 ml OutputOutput Total 1270 ml 1150 ml 1300 ml BalanceBalance 107.7 ml 211.5 ml -257.5 ml Exam Eyes: nl conjunctiva, EOMI, nl lids, nl sclera ENMT: nl external ears & nose, nl lips & teeth, nl nasal mucosa & septum, mucosa pink and moist Neck: supple, non-tender Respiratory: clear to auscultation, normal air movement Cardiovascular: regular rate and rhythm, nl pulses Gastrointestinal: soft, nl liver, spleen, non-tender Musculoskeletal: nl extremities to inspection, nl gait and stance Results Result Diagram: 03/20/19 0435 03/20/19 0435 MARIA EUGENIA IBARRA MD March 20, 2019 14:04
[2019-03-20] MEDS: DIPHENHYDRAMINE 25 MG CAP PO PRN (15:55)
[2019-03-20] MEDS: CYCLOBENZAPRINE 10 MG TAB PO PRN (19:05)
[2019-03-20] MEDS: DIPHENHYDRAMINE 50 MG INJ IV PRN (20:28)
[2019-03-20] MEDS: MIRTAZAPINE 15 MG TAB PO SCH (20:29)
[2019-03-20] MEDS: ATORVASTATIN 10 MG TAB PO SCH (20:29)
[2019-03-21] VITALS (10 sets, daily range): BP systolic 115–141; BP diastolic 56–77; PULSE 76–89; RESP 18–19
[2019-03-21] MEDS: DIPHENHYDRAMINE 25 MG CAP PO PRN (00:28)
[2019-03-21] MEDS: CEPASTAT LOZENGE MT PRN (03:41)
[2019-03-21] MEDS: DIPHENHYDRAMINE 50 MG INJ IV PRN ×2 (03:56→20:34)
[2019-03-21] MEDS: OXYCODONE/ACETAMINOPHEN (10/325) TAB PO PRN ×4 (03:59→21:10)
[2019-03-21] MEDS: PANTOPRAZOLE (EC) 40 MG TAB PO SCH (05:58)
[2019-03-21] MEDS: LEVOTHYROXINE 125 MCG TAB PO SCH (06:11)
[2019-03-21] MEDS ORDERED: ALBUTEROL 0.083% (NEB) 2.5 MG/3 ML AMP HHN STA (06:28)
[2019-03-21] MEDS ORDERED: ALBUTEROL 0.083% (NEB) 2.5 MG/3 ML AMP HHN PRN (06:30)
--- NOTE | 2019-03-21 06:40 | CONS ---
Assessment/Plan Assessment/Plan Problems: (1) Chest pain Status: Acute Comment: New onset. Check EKG, CXR to be certain this is not cardiac cause but likely due to renewed symptoms from PE. (2) Wheezing Status: Acute Comment: Albuterol now and prn (3) SOB (shortness of breath) Status: Acute Comment: Now acutely worse. Add breathing treatment and check CXR (4) Drug-induced constipation Status: Acute Comment: Methylnaltrexone not effective. Will give enema (5) Pulmonary embolism during current hospitalization Status: Acute Comment: Cont. anticoagulation. Defer to pulmonary, cardiology. (6) DVT (deep venous thrombosis) Status: Acute Comment: Cont. anticoagulation. Qualifiers: DVT location: lower extremity Chronicity: acute Laterality: left (7) Postoperative anemia Status: Acute Comment: Has been stable. Check levels today. (8) Anxiety disorder Status: Chronic Comment: Cont. gabapentin, remeron, abilify w/ prn lorazepam Qualifiers: Anxiety disorder type: generalized anxiety disorder Qualified Codes: F41.1 - Generalized anxiety disorder (9) Dysthymia Status: Chronic Comment: Cont. gabapentin, remeron, abilify (10) Testicular hypofunction Status: Chronic Comment: Cont. testosterone (11) Acquired hypothyroidism Status: Chronic Comment: Cont. LT4 (12) Hyperlipidemia Status: Chronic Comment: Cont. statin Qualifiers: Hyperlipidemia type: pure hypercholesterolemia Qualified Codes: E78.00 - Pure hypercholesterolemia, unspecified (13) Gastro-esophageal reflux disease without esophagitis Status: Chronic Comment: Cont. pantoprazole (14) Obstructive sleep apnea Status: Chronic Comment: Cont. CPAP O/N and modafanil during day (15) S/P lumbar fusion Onset Date: ~ 03/16/2019 Status: Acute Comment: Doing fair. Has transferred out of ICU. Will get more PT in new location. Cont. pain control. Consultation Date/Type/Reason Admit Date/Time Mar 15, 2019 at 09:57 Initial Consult Date 03/19/19 Type of Consult Medicine Reason for Consultation Medical Management Requesting Provider: SUNDEEP OROPEZA MD Date/Time of Note DATE: 03/21/19 TIME: 06:31 24 HR Interval Summary Constitutional: requiring O2; No no complaints (sleeps poorly) Detailed Summary Respiratory: shortness of breath, wheezing Cardiovascular: chest pain (feels like pressure, like someone pushing on his chest, new onset) Gastrointestinal: constipation (no BM x 9 days) Genitourinary: no complaints Musculoskeletal: back pain (mild, controlled) Neurologic: no complaints Exam/Review of Systems Exam Vitals VS - Last 72 Hours, by Label Date Temp Pulse Resp B/P (MAP) Pulse Ox O2 O2 Flow FiO2 Time Delivery Rate 03/21/19 86 04:00 03/21/19 98.5 80 18 122/61 96 04:00 (81) 03/21/19 88 00:00 03/21/19 98.4 85 18 141/63 96 00:00 (89) 03/20/19 82 20:00 03/20/19 98.2 82 20 129/89 95 20:00 (102) 03/20/19 85 15 113/66 95 Room Air 17:00 (82) 03/20/19 98.8 82 12 114/78 99 Room Air 16:00 (90) 03/20/19 83 16:00 03/20/19 78 18 98/68 (78) 97 Room Air 15:00 03/20/19 85 17 108/60 90 Room Air 14:00 (76) 03/20/19 100 24 137/91 96 Room Air 13:00 (106) 03/20/19 98.5 98 14 115/72 97 Room Air 12:00 (86) 03/20/19 91 12:00 03/20/19 89 15 120/73 97 Room Air 11:00 (89) 03/20/19 81 21 118/69 93 Room Air 10:00 (85) 03/20/19 76 18 132/63 100 Room Air 09:00 (86) 03/20/19 75 08:00 03/20/19 98.8 76 16 128/66 95 Room Air 08:00 (86) 03/20/19 78 20 111/66 98 Room Air 07:00 (81) Nasal Cannula 03/20/19 85 19 128/71 99 Nasal 2.0 06:00 (90) Cannula 03/20/19 81 13 132/102 100 Nasal 2.0 05:00 (112) Cannula 03/20/19 87 20 150/67 89 Nasal 2.0 04:00 (94) Cannula 03/20/19 87 04:00 03/20/19 89 16 142/57 93 Nasal 2.0 03:00 (85) Cannula 03/20/19 94 25 94 02:01 03/20/19 92 19 128/68 93 Nasal 2.0 02:00 (88) Cannula 03/20/19 97 22 173/99 98 Nasal 2.0 01:01 (123) Cannula 03/20/19 94 21 97 01:00 03/20/19 91 15 129/74 98 Nasal 2.0 00:01 (92) Cannula 03/20/19 98.2 94 19 100 00:00 03/20/19 93 00:00 03/19/19 93 16 121/104 99 Nasal 2.0 23:00 (110) Cannula 03/19/19 85 15 120/59 Nasal 2.0 22:00 (79) Cannula 03/19/19 89 13 119/82 98 Nasal 2.0 21:00 (94) Cannula 03/19/19 Nasal 2.0 20:05 Cannula 03/19/19 88 20:00 03/19/19 98.9 94 16 116/80 99 Nasal 2.0 20:00 (92) Cannula 03/19/19 104 125/82 95 Nasal 2.0 19:00 (96) Cannula 03/19/19 95 16 116/75 93 Nasal 2.0 18:00 (89) Cannula 03/19/19 2.0 17:22 03/19/19 91 15 138/71 96 Nasal 2.0 17:00 (93) Cannula 03/19/19 98.2 94 23 124/67 88 Nasal 2.0 16:00 (86) Cannula 03/19/19 94 16:00 03/19/19 92 123/66 98 Nasal 2.0 15:01 (85) Cannula 03/19/19 15 110/57 97 Nasal 2.0 14:00 (74) Cannula 03/19/19 100 14 139/72 98 Nasal 2.0 13:00 (94) Cannula 03/19/19 98.0 92 14 143/83 98 Nasal 2.0 12:01 (103) Cannula 03/19/19 95 12:00 03/19/19 87 11 81/36 (51) 97 Nasal 2.0 11:00 Cannula 03/19/19 14 107/73 100 Nasal 2.0 10:00 (84) Cannula 03/19/19 91 13 113/75 97 Nasal 2.0 09:00 (88) Cannula 03/19/19 96 08:00 03/19/19 Nasal 2.0 08:00 Cannula 03/19/19 91 14 131/79 95 Nasal 2.0 08:00 (96) Cannula 03/19/19 98.2 86 22 113/81 98 Nasal 2.0 07:00 (92) Cannula 03/19/19 88 12 118/64 98 Nasal 2.0 06:00 (82) Cannula 03/19/19 87 15 105/64 94 BIPAP 05:00 (78) 03/19/19 98.1 85 14 94/57 (69) 97 BIPAP 04:00 03/19/19 89 04:00 03/19/19 90 11 95/56 (69) 94 BIPAP 03:00 03/19/19 97 2.0 27 02:16 03/19/19 93 12 118/67 97 BIPAP 02:00 (84) 03/19/19 100 14 120/64 92 BIPAP 01:00 (82) 03/19/19 98.5 100 13 129/71 95 Nasal 2.0 00:00 (90) Cannula 03/19/19 100 00:00 03/18/19 Nasal 2.0 23:00 Cannula 03/18/19 93 112/74 97 Nasal 2.0 23:00 (87) Cannula 03/18/19 90 22:42 03/18/19 98.8 96 113/62 96 Nasal 2.0 22:35 (79) Cannula 03/18/19 96 22:34 03/18/19 98.5 96 20 111/63 97 Nasal 2.0 22:02 (79) Cannula 03/18/19 Nasal 2.0 21:00 Cannula 03/18/19 99.1 99 20 107/59 93 Nasal 2.0 20:00 (75) Cannula 03/18/19 98.0 107 20 131/63 94 Nasal 2.0 15:59 (85) Cannula 03/18/19 98.4 112 22 126/64 95 Nasal 2.0 10:33 (84) Cannula 03/18/19 18 10:00 03/18/19 18 09:00 03/18/19 98.2 94 18 103/59 94 Nasal 2.0 08:31 (74) Cannula Vital Signs Date Temp Pulse Resp B/P (MAP) Pulse Ox O2 O2 Flow FiO2 Time Delivery Rate 03/21/19 86 04:00 03/21/19 98.5 18 122/61 96 04:00 (81) 03/20/19 Room Air 17:00 03/20/19 2.0 06:00 03/19/19 27 02:16 Intake and Output 03/20/19 03/20/19 03/21/19 1515:00 23:00 07:00 IntakeIntake Total 996.0 ml 289.5 ml OutputOutput Total 1625 ml 300 ml BalanceBalance -629.0 ml -10.5 ml Constitutional: alert, oriented, well developed Psych: no complaints, nl mood/affect Respiratory: wheezing (mild, end-expiratory) Cardiovascular: regular rate and rhythm, nl pulses; No edema, No murmurs/extra sounds, No rub Gastrointestinal: soft, nl liver, spleen, non-tender, bowel sounds; No mass, No rebound or guarding Musculoskeletal: nl extremities to inspection Extremities: normal pulses; No cyanosis, No clubbing, No edema Neurological: STOREKEEPER HELPER II-XII intact, nl mental status, nl speech, nl strength Results Result Diagram: 03/20/19 0435 03/20/19 0435 Results 24hrs Laboratory Tests Test 03/20/19 13:41 03/20/19 21:00 03/21/19 05:13 Activated Partial Thromboplast Time 68.6 H 60.9 H White Blood Count Pending Red Blood Count Pending Hemoglobin Pending Hematocrit Pending Mean Corpuscular Volume Pending Mean Corpuscular Hemoglobin Pending Mean Corpuscular Hemoglobin Concent Pending Red Cell Distribution Width Pending Platelet Count Pending Mean Platelet Volume Pending Medications Medication Current Medications Aripiprazole (Abilify) 5 mg DAILY PO Last administered on 03/20/19at 09:39; Admin Dose 5 MG; Start 03/16/19 at 09:00 Gabapentin (Neurontin) 1,800 mg QHS PO Last administered on 03/20/19at 20:30; Admin Dose 1,800 MG; Start 03/15/19 at 21:00 Gabapentin (Neurontin) 600 mg QAM PO Last administered on 03/20/19at 09:39; Admin Dose 600 MG; Start 03/16/19 at 09:00 Levothyroxine Sodium (Synthroid) 125 mcg BEFORE BREAKFAST PO Last administered on 03/21/19 06:11; Admin Dose 125 MCG; Start 03/16/19 at 07:00 Mirtazapine (Remeron) 30 mg HS PO Last administered on 03/20/19 20:29; Admin Dose 30 MG; Start 03/15/19 at 21:00 Pantoprazole (Protonix Tab) 40 mg DAILY@06 PO Last administered on 03/21/19 05:58; Admin Dose 40 MG; Start 03/16/19 at 06:00 Zolpidem Tartrate (Ambien) 5 mg HS PRN PO INSOMNIA Last administered on 00:28; Admin Dose 5 MG; Start 03/15/19 at 23:00 Atorvastatin Calcium (Lipitor) 10 mg DAILY@21 PO Last administered on 03/20/19 20:29; Admin Dose 10 MG; Start 03/15/19 at 23:00 Oxycodone/ Acetaminophen (Endocet (10/ 325)) 1 tab Q4H PRN PO .PAIN 5-10; Start 03/16/19 at 14:00 Oxycodone/ Acetaminophen (Endocet (10/ 325)) 2 tab Q4H PRN PO .PAIN 6-10 Last administered on 03/21/19 03:59; Admin Dose 2 TAB; Start 03/16/19 at 14:00 Hydromorphone HCl (Dilaudid) 0.2 mg Q1H PRN IV .BREAKTHROUGH PAIN Last administered on 03/20/19 10:42; Admin Dose 0.2 MG; Start 03/16/19 at 14:00 Ondansetron HCl (Zofran Inj) 4 mg Q6H PRN IV NAUSEA/VOMITING Last administered on 03/17/19 17:21; Admin Dose 4 MG; Start 03/16/19 at 14:00 Bisacodyl (Dulcolax Supp) 10 mg DAILY PRN [place] .CONSTIPATION Last administered on 03/19/19 18:08; Admin Dose 10 MG; Start 03/16/19 at 14:00 Docusate Sodium (Colace) 100 mg BID PO Last administered on 03/20/19 20:29; Admin Dose 100 MG; Start 03/16/19 at 21:00 Al Hydrox/Mg Hydrox/Simethicone (Mag-Al Plus) 15 ml Q6H PRN PO .CONSTIPATION/DYSPEPSIA Last administered on 03/20/19 09:39; Admin Dose 15 ML; Start 03/16/19 at 14:00 Acetaminophen (Tylenol Tab) 650 mg Q4H PRN PO TORRES OR TEMP GREATER THAN 101.3F; Start 03/16/19 at 14:00 Cyclobenzaprine HCl (Flexeril) 5 mg TID PRN PO .MUSCLE SPASM Last administered on 03/20/19 19:05; Admin Dose 5 MG; Start 03/16/19 at 14:00 Phenol (Cepastat Lozenge) 1 lozenge PRN PRN [place] .SORE THROAT Last administered on 03/21/19 03:41; Admin Dose 1 LOZENGE; Start 03/16/19 at 14:00 Diphenhydramine HCl (Benadryl) 25 mg Q6H PRN PO .ITCHING Last administered on 03/21/19 00:28; Admin Dose 25 MG; Start 03/16/19 at 14:00 Diphenhydramine HCl (Benadryl) 25 mg Q6H PRN IV .ITCHING Last administered on 03/21/19 03:56; Admin Dose 25 MG; Start 03/16/19 at 14:00 Naloxone HCl (Narcan) 0.2 mg Q2M PRN IV .RR 8 BREATHS/MIN OR LESS; Start 03/16/19 at 14:00 Miscellaneous Information 1. Hold AIRCRAFT PAINTER APPRENTICE at 1,000... AIRCRAFT PAINTER APPRENTICE IV ; Start 03/16/19 at 14:00 Testosterone (Androgel) 5 gm DAILY TOP Last administered on 03/20/19 10:15; Admin Dose 5 GM; Start 03/17/19 at 09:00 Hydromorphone HCl (Dilaudid AIRCRAFT PAINTER APPRENTICE) AIRCRAFT PAINTER APPRENTICE to be started in PACU Q4PCA IV Last administered on 03/17/19 23:22; Admin Dose 6 MG; Start 03/16/19 at 23:00 Modafinil (Provigil) 400 mg DAILY PO Last administered on 03/20/19 10:16; Admin Dose 400 MG; Start 03/17/19 at 12:00 Heparin Sodium (Porcine) (Heparin (1000 Units/ml)) 7,700 unit PER PROTOCOL PRN IV aPTT<47; Start 03/18/19 at 22:00 Heparin Sodium (Porcine) (Heparin (1000 Units/ml)) 3,900 unit PER PROTOCOL PRN IV aPTT<47-57; Start 03/18/19 at 22:00 Heparin Sodium (Porcine) 250 ml @ 17.5 mls/hr PER PROTOCOL IV Last administered on 03/20/19at 23:04; Admin Dose 18.5 MLS/HR; Start 03/18/19 at 22:00 Lorazepam (Ativan) 2 mg TID PRN PO ANXIETY Last administered on 03/19/19at 20:47; Admin Dose 2 MG; Start 03/19/19 at 12:30 Methylnaltrexone [place] (Relistor) 12 mg DAILY SC Last administered on 03/20/19at 09:39; Admin Dose 12 MG; Start 03/20/19 at 09:00 Ferrous Sulfate (Ferrous Sulfate (Ec)) 325 mg BID PO Last administered on 03/20/19at 20:29; Admin Dose 325 MG; Start 03/20/19 at 09:00 Sodium Biphosphate/ Sodium Phosphate (Fleet Enema) 133 ml DAILY PRN [place] CONSTIPATION; Start 03/20/19 at 09:00 MARION SUNSHINE MD March 21, 2019 06:40
[2019-03-21] MEDS ORDERED: NA PHOSPHATE/BIPHOS 133 ML ENEMA PR SCH (07:00)
[2019-03-21] MEDS: HEPARIN 25000 UNITS/250 ML 250 ML IV SCH ×2 (07:14→13:11)
[2019-03-21] MEDS: TESTOSTERONE 1% GEL 5 GM PACKET TOP SCH ×2 (09:00→13:13)
[2019-03-21] MEDS: MODAFINIL 200 MG TAB PO SCH ×2 (09:00→13:13)
[2019-03-21] MEDS: ARIPIPRAZOLE 5 MG TAB PO SCH (09:18)
[2019-03-21] MEDS: DOCUSATE SODIUM 100 MG CAP PO SCH ×2 (09:18→20:35)
[2019-03-21] MEDS: METHYLNALTREXONE 12 MG/0.6 ML VIAL SC SCH (09:18)
[2019-03-21] MEDS: FERROUS SULFATE (EC) 325 MG TAB PO SCH ×2 (09:18→20:36)
[2019-03-21] MEDS: GABAPENTIN 300 MG CAP PO SCH ×2 (09:19→20:36)
--- NOTE | 2019-03-21 09:34 | PN ---
Date/Time of Note Date/Time of Note DATE: 03/21/19 TIME: 09:31 Assessment/Plan Lines/Catheters IV Catheter Type (from Nrsg): Peripheral IV Ross in Place (from Nrsg): No Assessment/Plan Assessment/Plan ortho note - s/p L2-S1 fusion acute CP and SOB - CXR taken but results not available and EKG pending, albuterol treatment and nasal cannula LBP - continue with pain management as ordered constipation - enema today HCT stable resume PT when cleared from pulmonary/cardiac standpoint DVT/PE - per pulmonary and cardiac teams, continue anticoag Subjective 24 Hr Interval Summary c/o acute CP, SOB post-operative LBP improving continues with left groin pain which is slowly improving Exam/Review of Systems Vital Signs Vitals Vital Signs Date Temp Pulse Resp B/P (MAP) Pulse Ox O2 O2 Flow FiO2 Time Delivery Rate 03/21/19 84 08:01 03/21/19 96 2.0 06:56 03/21/19 20 Nasal 06:56 Cannula 03/21/19 98.5 122/61 04:00 (81) 03/19/19 27 02:16 Intake and Output 03/20/19 03/20/19 03/21/19 1515:00 23:00 07:00 IntakeIntake Total 996.0 ml 289.5 ml 800 ml OutputOutput Total 1625 ml 300 ml 1200 ml BalanceBalance -629.0 ml -10.5 ml -400 ml Exam Free Text/Dictation AOx3 nasal cannula in place pain controlled appears short of breath but not cyanotic incisions/dressings c/d/i left quad strength intact TA, EHL, and sensation intact BLE abdomen distended Results Result Diagram: 03/21/19 0513 03/21/19 0513 ATA CAMP PA-C March 21, 2019 09:34
[2019-03-21] MEDS: LORAZEPAM 1 MG TAB PO PRN (11:48)
[2019-03-21] MEDS: BISACODYL 10 MG SUPP PR PRN (13:13)
--- NOTE | 2019-03-21 13:49 | CONS ---
Consult Date/Type/Reason Admit Date/Time Mar 15, 2019 at 09:57 Initial Consult Date 03/19/19 Type of Consultation: Pulm/CCM Requesting Provider: SUNDEEP OROPEZA MD Date/Time of Note DATE: 03/21/19 TIME: 13:47 Subjective C/O difficulty taking deep breaths. No pleurisy per se. Also c/o constipation. Objective Vitals Vital Signs Date Temp Pulse Resp B/P (MAP) Pulse Ox O2 O2 Flow FiO2 Time Delivery Rate 03/21/19 Nasal 2.5 08:30 Cannula 03/21/19 84 08:01 03/21/19 98.4 19 127/77 95 08:00 (94) 03/19/19 27 02:16 Intake and Output 03/20/19 03/20/19 03/21/19 1515:00 23:00 07:00 IntakeIntake Total 996.0 ml 289.5 ml 800 ml OutputOutput Total 1625 ml 300 ml 1200 ml BalanceBalance -629.0 ml -10.5 ml -400 ml Exam HEENT: Neck supple; no JVD; no LAD CVS: RRR, S1 and S2 CHEST: Mild end-expiratory wheezing b/l ABD: Soft, NT, + BS EXT: No c/c/e Results/Medications Result Diagram: 03/21/19 0513 03/21/1913 Results 24 hrs Laboratory Tests Test 03/20/19 21:00 03/21/19 05:13 Activated Partial Thromboplast Time 60.9 H 79.4 *H White Blood Count 4.4 L Red Blood Count 2.77 L Hemoglobin 8.6 L Hematocrit 25.4 L Mean Corpuscular Volume 91.7 Mean Corpuscular Hemoglobin 31.0 Mean Corpuscular Hemoglobin Concent 33.9 Red Cell Distribution Width 14.4 Platelet Count 195 # Mean Platelet Volume 9.0 Immature Granulocytes % 0.700 H Neutrophils % 44.9 Lymphocytes % 29.7 Monocytes % 15.2 H Eosinophils % 9.0 H Basophils % 0.5 Nucleated Red Blood Cells % 0.0 Immature Granulocytes # 0.030 Neutrophils # 2.0 Lymphocytes # 1.3 Monocytes # 0.7 Eosinophils # 0.4 Basophils # 0.0 Nucleated Red Blood Cells # 0.0 Sodium Level 140 Potassium Level 3.7 Chloride Level 106 Carbon Dioxide Level 28 Anion Gap 6 Blood Urea Nitrogen 8 Creatinine 0.76 Est Glomerular Filtrat Rate mL/min > 60 Glucose Level 98 Lactic Acid Level 0.9 Calcium Level 8.4 Home Meds Reported Medications Testosterone* (Androgel*) 1.62%-75gm Gel.class a lineman, 60.75 MG TD DAILY, EA 03/15/19 Docusate Sodium* (Dok*) 100 Mg Tablet, 100 MG PO BID, #60 CAP 03/15/19 Oxycodone HCl/Acetaminophen (Oxycodone-Acetaminophen 10-325) 1 Each Tablet, 1 EACH PO EVERY 4-6 HOURS PRN for PAIN LEVEL 1-5, TAB 03/15/19 Mirtazapine* (Mirtazapine*) 30 Mg Tablet, 30 MG PO HS, TAB 03/15/19 Gabapentin* (Gabapentin*) 600 Mg Tablet, 1800 MG PO QHS, #90 TAB 03/15/19 Gabapentin* (Gabapentin*) 600 Mg Tablet, 600 MG PO QAM, #60 TAB 03/15/19 Simvastatin* (Zocor*) 20 Mg Tablet, 20 MG PO QHS, #30 TAB 03/15/19 Dexlansoprazole (Dexilant) 60 Mg Cap.mp, 60 MG PO DAILY, #30 CAP 03/15/19 Eszopiclone (Lunesta) 2 Mg Tab, 2 MG PO HS PRN for INSOMNIA, TAB 03/15/19 Aripiprazole* (Abilify*) 5 Mg Tab, 5 MG PO DAILY, #30 TAB 03/15/19 Levothyroxine Sodium* (Levoxyl*) 125 Mcg Tablet, 125 MCG PO BEFORE BREAKFAST, #30 TAB 03/15/19 Modafinil* (Provigil*) 100 Mg Tablet, 400 MG PO QAM, TAB 03/15/19 Lorazepam* (Lorazepam*) 1 Mg Tablet, 1 MG PO TID PRN for ANXIETY, #30 TAB 03/15/19 Medications Current Medications Aripiprazole (Abilify) 5 mg DAILY PO Last administered on 03/21/19at 09:18; Admin Dose 5 MG; Start 03/16/19 at 09:00 Gabapentin (Neurontin) 1,800 mg QHS PO Last administered on 03/20/19at 20:30; Admin Dose 1,800 MG; Start 03/15/19 at 21:00 Gabapentin (Neurontin) 600 mg QAM PO Last administered on 03/21/19 09:19; Admin Dose 600 MG; Start 03/16/19 at 09:00 Levothyroxine Sodium (Synthroid) 125 mcg BEFORE BREAKFAST PO Last administered on 03/21/19 06:11; Admin Dose 125 MCG; Start 03/16/19 at 07:00 Mirtazapine (Remeron) 30 mg HS PO Last administered on 03/20/19 20:29; Admin Dose 30 MG; Start 03/15/19 at 21:00 Pantoprazole (Protonix Tab) 40 mg DAILY@06 PO Last administered on 03/21/19 05:58; Admin Dose 40 MG; Start 03/16/19 at 06:00 Zolpidem Tartrate (Ambien) 5 mg HS PRN PO INSOMNIA Last administered on 03/21/19 00:28; Admin Dose 5 MG; Start 03/15/19 at 23:00 Atorvastatin Calcium (Lipitor) 10 mg DAILY@21 PO Last administered on 03/20/19 20:29; Admin Dose 10 MG; Start 03/15/19 at 23:00 Oxycodone/ Acetaminophen (Endocet (10/ 325)) 1 tab Q4H PRN PO .PAIN 5-10; Start 03/16/19 at 14:00 Oxycodone/ Acetaminophen (Endocet (10/ 325)) 2 tab Q4H PRN PO .PAIN 6-10 Last administered on 03/21/19 07:20; Admin Dose 2 TAB; Start 03/16/19 at 14:00 Hydromorphone HCl (Dilaudid) 0.2 mg Q1H PRN IV .BREAKTHROUGH PAIN Last administered on 03/20/19 10:42; Admin Dose 0.2 MG; Start 03/16/19 at 14:00 Ondansetron HCl (Zofran Inj) 4 mg Q6H PRN IV NAUSEA/VOMITING Last administered on 03/17/19 17:21; Admin Dose 4 MG; Start 03/16/19 at 14:00 Bisacodyl (Dulcolax Supp) 10 mg DAILY PRN [place] .CONSTIPATION Last administered on 03/21/19 13:13; Admin Dose 10 MG; Start 03/16/19 at 14:00 Docusate Sodium (Colace) 100 mg BID PO Last administered on 03/21/19 09:18; Admin Dose 100 MG; Start 03/16/19 at 21:00 Al Hydrox/Mg Hydrox/Simethicone (Mag-Al Plus) 15 ml Q6H PRN PO .CONSTIPATIO N/DYSPEPSIA Last administered on 03/20/19 09:39; Admin Dose 15 ML; Start 03/16/19 at 14:00 Acetaminophen (Tylenol Tab) 650 mg Q4H PRN PO TORRES OR TEMP GREATER THAN 101.3F; Start 03/16/19 at 14:00 Cyclobenzaprine HCl (Flexeril) 5 mg TID PRN PO .MUSCLE SPASM Last administered on 03/20/19 19:05; Admin Dose 5 MG; Start 03/16/19 at 14:00 Phenol (Cepastat Lozenge) 1 lozenge PRN PRN [place] .SORE THROAT Last administered on 03/21/19 03:41; Admin Dose 1 LOZENGE; Start 03/16/19 at 14:00 Diphenhydramine HCl (Benadryl) 25 mg Q6H PRN PO .ITCHING Last administered on 03/21/19 00:28; Admin Dose 25 MG; Start 03/16/19 at 14:00 Diphenhydramine HCl (Benadryl) 25 mg Q6H PRN IV .ITCHING Last administered on 03/21/19 03:56; Admin Dose 25 MG; Start 03/16/19 at 14:00 Naloxone HCl (Narcan) 0.2 mg Q2M PRN IV .RR 8 BREATHS/MIN OR LESS; Start 03/16/19 at 14:00 Miscellaneous Information 1. Hold ADMINISTRATIVE MEDICAL DIRECTOR at 1,000... ADMINISTRATIVE MEDICAL DIRECTOR IV ; Start 03/16/19 at 14:00 Testosterone (Androgel) 5 gm DAILY TOP Last administered on 03/21/19 13:13; Admin Dose 5 GM; Start 03/17/19 at 09:00 Hydromorphone HCl (Dilaudid ADMINISTRATIVE MEDICAL DIRECTOR) ADMINISTRATIVE MEDICAL DIRECTOR to be started in PACU Q4PCA IV Last administered on 03/17/19 23:22; Admin Dose 6 MG; Start 03/16/19 at 23:00 Modafinil (Provigil) 400 mg DAILY PO Last administered on 03/21/19 13:13; Admin Dose 400 MG; Start 03/17/19 at 12:00 Heparin Sodium (Porcine) (Heparin (1000 Units/ml)) 7,700 unit PER PROTOCOL PRN IV aPTT<47; Start 03/18/19 at 22:00 Heparin Sodium (Porcine) (Heparin (1000 Units/ml)) 3,900 unit PER PROTOCOL PRN IV aPTT<47-57; Start 03/18/19 at 22:00 Heparin Sodium (Porcine) 250 ml @ 17.5 mls/hr PER PROTOCOL IV Last administered on 03/21/19 13:11; Admin Dose 16.5 MLS/HR; Start 03/18/19 at 22:00 Lorazepam (Ativan) 2 mg TID PRN PO ANXIETY Last administered on 03/21/19 11:48; Admin Dose 2 MG; Start 03/19/19 at 12:30 Methylnaltrexone [place] (Relistor) 12 mg DAILY SC Last administered on 03/21/19 09:18; Admin Dose 12 MG; Start 03/20/19 at 09:00 Ferrous Sulfate (Ferrous Sulfate (Ec)) 325 mg BID PO Last administered on 03/21/19 09:18; Admin Dose 325 MG; Start 03/20/19 at 09:00 Albuterol (Proventil 0.083% (Neb)) 2.5 mg Q4H RESP THERAPY PRN HHN SHORTNESS OF BREATH; Start 03/21/19 at 06:30 Assessment/Plan Assessment/Plan (Daily) IMP: 1. Acute PE/LLE DVT--provoked. Tolerating heparin gtt 2. s/p spina fusion surgery 3. Anxiety d/o 4. HTN 5. HLD RECS: 1. Continue heparin gtt for now 2. Can start DOAC tomorrow if okay with spine surgery 3. Mobilize OOB; okay to mobilize from pulm standpoint. 4. PT/OT 5. Lactulose prn until BM SOCORRO BIANCHI MD March 21, 2019 13:49
[2019-03-21] MEDS: LACTULOSE 30ML CUP PO SCH ×2 (15:13→22:00)
[2019-03-21] MEDS: MIRTAZAPINE 15 MG TAB PO SCH (20:35)
[2019-03-21] MEDS: ATORVASTATIN 10 MG TAB PO SCH (20:36)
[2019-03-22] VITALS (11 sets, daily range): BP systolic 106–118; BP diastolic 58–83; PULSE 64–121; RESP 18–19
[2019-03-22] MEDS: OXYCODONE/ACETAMINOPHEN (10/325) TAB PO PRN ×2 (01:50→16:47)
[2019-03-22] MEDS: DIPHENHYDRAMINE 25 MG CAP PO PRN ×2 (01:50→11:08)
[2019-03-22] MEDS: LORAZEPAM 1 MG TAB PO PRN ×2 (03:13→11:42)
[2019-03-22] MEDS: LACTULOSE 30ML CUP PO SCH (05:30)
[2019-03-22] MEDS: PANTOPRAZOLE (EC) 40 MG TAB PO SCH (05:30)
[2019-03-22] MEDS: LEVOTHYROXINE 125 MCG TAB PO SCH (06:16)
[2019-03-22] MEDS: METHYLNALTREXONE 12 MG/0.6 ML VIAL SC SCH (09:20)
[2019-03-22] MEDS: GABAPENTIN 300 MG CAP PO SCH ×2 (09:21→21:06)
[2019-03-22] MEDS: DOCUSATE SODIUM 100 MG CAP PO SCH ×2 (09:21→21:07)
[2019-03-22] MEDS: ARIPIPRAZOLE 5 MG TAB PO SCH (09:21)
[2019-03-22] MEDS: FERROUS SULFATE (EC) 325 MG TAB PO SCH ×2 (09:21→21:06)
--- NOTE | 2019-03-22 09:26 | RADRPT ---
Vent Rate: 80 bpm RR Interval: 748 msec [place] Interval: 173 msec QRS Duration: 106 msec QT Interval: 376 msec QTC Interval: 435 msec P-R-T [place]: 85 - -32 - 42 degrees Sinus rhythm...normal P axis, V-rate 50- 99 Left axis deviation...QRS axis (-30,-90) Nonspecific T abnormalities, anterior leads...T <-0.10mV, V2-V4 Electronically Signed By: Rashawn Sevilla
[2019-03-22] MEDS: TESTOSTERONE 1% GEL 5 GM PACKET TOP SCH (10:51)
[2019-03-22] MEDS: MODAFINIL 200 MG TAB PO SCH (10:51)
[2019-03-22] MEDS: HYDROmorphONE 0.5 MG/0.5 ML SYG IV PRN (11:09)
--- NOTE | 2019-03-22 11:40 | CONS ---
Assessment/Plan Assessment/Plan Hospital Course (Demo Recall) Acute pulmonary emboli Preserved left ventricular ejection fraction Status post spinal surgery Hypertension Dyslipidemia Anxiety -Patient status post spinal surgery on this admission developed symptoms of pleuritic chest pain, shortness of breath and evidence of tachycardia and diagnosed with acute pulmonary emboli -Patient has been tolerating IV heparin, change to novel oral anticoagulant when okay by surgery Consultation Date/Type/Reason Admit Date/Time Mar 15, 2019 at 09:57 Initial Consult Date 03/19/19 Type of Consult Cardiology Requesting Provider: SUNDEEP OROPEZA MD Date/Time of Note DATE: 03/22/19 TIME: 11:38 24 HR Interval Summary Free Text/Dictation Still with intermittent shortness of breath, more so with anxiety, also chest pain with coughing Exam/Review of Systems Vital Signs Vitals Vital Signs Date Temp Pulse Resp B/P (MAP) Pulse Ox O2 O2 Flow FiO2 Time Delivery Rate 03/22/19 97.8 95 19 109/60 96 11:13 (76) 03/22/19 Nasal 2.0 04:00 Cannula 03/19/19 27 02:16 Intake and Output 03/21/19 03/21/19 03/22/19 1515:00 23:00 07:00 IntakeIntake Total 600 ml 650 ml OutputOutput Total 800 ml 900 ml BalanceBalance -200 ml -250 ml Exam Constitutional: alert, oriented (No apparent distress) Head: normocephalic Respiratory: other (Coarse breath sounds bilaterally, no wheezing) Cardiovascular: regular rate and rhythm (S1-S2 heard) Gastrointestinal: soft, non-tender, bowel sounds Extremities: other (No significant edema) Labs Result Diagram: 03/22/19 0512 03/22/19 0512 Results 24hrs Laboratory Tests Test 03/21/19 13:56 03/21/19 20:20 03/22/19 05:12 03/22/19 05:13 Activated 75.9 *H 75.6 *H 49.2 H Partial Thromboplast Time White Blood Count 6.2 # Red Blood Count 3.50 #L Hemoglobin 10.8 #L Hematocrit 32.3 #L Mean Corpuscular Volume 92.3 Mean Corpuscular 30.9 Hemoglobin Mean Corpuscular 33.4 Hemoglobin Concent Red Cell Distribution 14.6 H Width Platelet Count 274 # Mean Platelet Volume 9.1 Immature Granulocytes % 1.000 H Neutrophils % 52.0 Lymphocytes % 28.0 Monocytes % 11.5 H Eosinophils % 7.0 Basophils % 0.5 Nucleated Red Blood 0.0 Cells % Immature Granulocytes # 0.060 H Neutrophils # 3.2 Lymphocytes # 1.7 Monocytes # 0.7 Eosinophils # 0.4 Basophils # 0.0 Nucleated Red Blood 0.0 Cells # Sodium Level 142 Potassium Level 3.3 L Chloride Level 103 Carbon Dioxide Level 30 Anion Gap 9 Blood Urea Nitrogen 11 Creatinine 0.86 Est Glomerular Filtrat > 60 Rate mL/min Glucose Level 124 Calcium Level 9.3 Medications Medications Current Medications Aripiprazole (Abilify) 5 mg DAILY PO Last administered on 03/22/19 09:21; Admin Dose 5 MG; Start 03/16/19 at 09:00 Gabapentin (Neurontin) 1,800 mg QHS PO Last administered on 03/21/19 20:36; Admin Dose 1,800 MG; Start 03/15/19 at 21:00 Gabapentin (Neurontin) 600 mg QAM PO Last administered on 03/22/19 09:21; Admin Dose 600 MG; Start 03/16/19 at 09:00 Levothyroxine Sodium (Synthroid) 125 mcg BEFORE BREAKFAST PO Last administered on 03/22/19 06:16; Admin Dose 125 MCG; Start 03/16/19 at 07:00 Mirtazapine (Remeron) 30 mg HS PO Last administered on 03/21/19 20:35; Admin Dose 30 MG; Start 03/15/19 at 21:00 Pantoprazole (Protonix Tab) 40 mg DAILY@06 PO Last administered on 03/22/19 05:30; Admin Dose 40 MG; Start 03/16/19 at 06:00 Zolpidem Tartrate (Ambien) 5 mg HS PRN PO INSOMNIA Last administered on 03/21/19 00:28; Admin Dose 5 MG; Start 03/15/19 at 23:00 Atorvastatin Calcium (Lipitor) 10 mg DAILY@21 PO Last administered on 03/21/19 20:36; Admin Dose 10 MG; Start 03/15/19 at 23:00 Oxycodone/ Acetaminophen (Endocet (10/ 325)) 1 tab Q4H PRN PO .PAIN 5-10 Last administered on 03/21/19 21:10; Admin Dose 1 TAB; Start 03/16/19 at 14:00 Oxycodone/ Acetaminophen (Endocet (10/ 325)) 2 tab Q4H PRN PO .PAIN 6-10 Last administered on 03/22/19 01:50; Admin Dose 2 TAB; Start 03/16/19 at 14:00 Hydromorphone HCl (Dilaudid) 0.2 mg Q1H PRN IV .BREAKTHROUGH PAIN Last administered on 03/22/19 11:09; Admin Dose 0.2 MG; Start 03/16/19 at 14:00 Ondansetron HCl (Zofran Inj) 4 mg Q6H PRN IV NAUSEA/VOMITING Last administered on 03/17/19 17:21; Admin Dose 4 MG; Start 03/16/19 at 14:00 Bisacodyl (Dulcolax Supp) 10 mg DAILY PRN [place] .CONSTIPATION Last administered on 03/21/19 13:13; Admin Dose 10 MG; Start 03/16/19 at 14:00 Docusate Sodium (Colace) 100 mg BID PO Last administered on 03/22/19 09:21; Admin Dose 100 MG; Start 03/16/19 at 21:00 Al Hydrox/Mg Hydrox/Simethicone (Mag-Al Plus) 15 ml Q6H PRN PO .CONSTIPATION/DYSPEPSIA Last administered on 03/20/19 09:39; Admin Dose 15 ML; Start 03/16/19 at 14:00 Acetaminophen (Tylenol Tab) 650 mg Q4H PRN PO TORRES OR TEMP GREATER THAN 101.3F; Start 03/16/19 at 14:00 Cyclobenzaprine HCl (Flexeril) 5 mg TID PRN PO .MUSCLE SPASM Last administered on 03/20/19 19:05; Admin Dose 5 MG; Start 03/16/19 at 14:00 Phenol (Cepastat Lozenge) 1 lozenge PRN PRN [place] .SORE THROAT Last administered on 03/21/19 03:41; Admin Dose 1 LOZENGE; Start 03/16/19 at 14:00 Diphenhydramine HCl (Benadryl) 25 mg Q6H PRN PO .ITCHING Last administered on 03/22/19 11:08; Admin Dose 25 MG; Start 03/16/19 at 14:00 Diphenhydramine HCl (Benadryl) 25 mg Q6H PRN IV .ITCHING Last administered on 03/21/19 20:34; Admin Dose 25 MG; Start 03/16/19 at 14:00 Naloxone HCl (Narcan) 0.2 mg Q2M PRN IV .RR 8 BREATHS/MIN OR LESS; Start 03/16/19 at 14:00 Miscellaneous Information 1. Hold LASTER HAND at 1,000... LASTER HAND IV ; Start 03/16/19 at 14:00 Testosterone (Androgel) 5 gm DAILY TOP Last administered on 03/22/19 10:51; Admin Dose 5 GM; Start 03/17/19 at 09:00 Hydromorphone HCl (Dilaudid LASTER HAND) LASTER HAND to be started in PACU Q4PCA IV Last administered on 03/17/19 23:22; Admin Dose 6 MG; Start 03/16/19 at 23:00 Modafinil (Provigil) 400 mg DAILY PO Last administered on 03/22/19 10:51; Admin Dose 400 MG; Start 03/17/19 at 12:00 Heparin Sodium (Porcine) (Heparin (1000 Units/ml)) 7,700 unit PER PROTOCOL PRN IV aPTT<47; Start 03/18/19 at 22:00 Heparin Sodium (Porcine) (Heparin (1000 Units/ml)) 3,900 unit PER PROTOCOL PRN IV aPTT<47-57; Start 03/18/19 at 22:00 Heparin Sodium (Porcine) 250 ml @ 17.5 mls/hr PER PROTOCOL IV Last administered on 03/21/19 13:11; Admin Dose 16.5 MLS/HR; Start 03/18/19 at 22:00 Lorazepam (Ativan) 2 mg TID PRN PO ANXIETY Last administered on 03/22/19 03:13; Admin Dose 2 MG; Start 03/19/19 at 12:30 Methylnaltrexone [place] (Relistor) 12 mg DAILY SC Last administered on 03/22/19 09:20; Admin Dose 12 MG; Start 03/20/19 at 09:00 Ferrous Sulfate (Ferrous Sulfate (Ec)) 325 mg BID PO Last administered on 03/22/19 09:21; Admin Dose 325 MG; Start 03/20/19 at 09:00 Albuterol (Proventil 0.083% (Neb)) 2.5 mg Q4H RESP THERAPY PRN HHN SHORTNESS OF BREATH; Start 03/21/19 at 06:30 Tom Jimenes DO March 22, 2019 11:39
--- NOTE | 2019-03-22 12:52 | CONS ---
Consult Date/Type/Reason Admit Date/Time Mar 15, 2019 at 09:57 Initial Consult Date 03/19/19 Type of Consult Pulmonary Requesting Provider: SUNDEEP OROPEZA MD Date/Time of Note DATE: 03/22/19 TIME: 12:44 Subjective Patient stable this morning. No shortness of breath or chest pain. Continues heparin drip. Objective Vital Signs Date Temp Pulse Resp B/P (MAP) Pulse Ox O2 O2 Flow FiO2 Time Delivery Rate 03/22/19 96 12:01 03/22/19 2.0 11:34 03/22/19 97.8 19 109/60 96 11:13 (76) 03/22/19 Nasal 04:00 Cannula 03/19/19 27 02:16 Intake and Output 03/21/19 03/21/19 03/22/19 1515:00 23:00 07:00 IntakeIntake Total 600 ml 650 ml OutputOutput Total 800 ml 900 ml BalanceBalance -200 ml -250 ml Exam GENERAL: Well-nourished well-developed gentleman VITAL SIGNS: per chart NECK: Supple. No JVD or lymphadenopathy. CARDIAC EXAM: S1, S2. No added sounds or murmurs. CHEST: clear bilaterally, No added sounds, rales or wheezes ABDOMEN: Soft, nontender. No guarding or rebound. EXTREMITIES: No cyanosis, clubbing or edema. NEUROLOGIC: Generalized weakness. No focal deficits. Vent Setting Fraction of Inspired Oxygen pe: 27 Results/Medications Result Diagram: 03/22/19 0512 03/22/19 0512 Results 24 hrs Laboratory Tests Test 03/21/19 13:56 03/21/19 20:20 03/22/19 05:12 03/22/19 05:13 Activated 75.9 *H 75.6 *H 49.2 H Partial Thromboplast Time White Blood Count 6.2 # Red Blood Count 3.50 #L Hemoglobin 10.8 #L Hematocrit 32.3 #L Mean Corpuscular Volume 92.3 Mean Corpuscular 30.9 Hemoglobin Mean Corpuscular 33.4 Hemoglobin Concent Red Cell Distribution 14.6 H Width Platelet Count 274 # Mean Platelet Volume 9.1 Immature Granulocytes % 1.000 H Neutrophils % 52.0 Lymphocytes % 28.0 Monocytes % 11.5 H Eosinophils % 7.0 Basophils % 0.5 Nucleated Red Blood 0.0 Cells % Immature Granulocytes # 0.060 H Neutrophils # 3.2 Lymphocytes # 1.7 Monocytes # 0.7 Eosinophils # 0.4 Basophils # 0.0 Nucleated Red Blood 0.0 Cells # Sodium Level 142 Potassium Level 3.3 L Chloride Level 103 Carbon Dioxide Level 30 Anion Gap 9 Blood Urea Nitrogen 11 Creatinine 0.86 Est Glomerular Filtrat > 60 Rate mL/min Glucose Level 124 Calcium Level 9.3 Medications Current Medications Aripiprazole (Abilify) 5 mg DAILY PO Last administered on 03/22/19 09:21; Admin Dose 5 MG; Start 03/16/19 at 09:00 Gabapentin (Neurontin) 1,800 mg QHS PO Last administered on 03/21/19 20:36; Admin Dose 1,800 MG; Start 03/15/19 at 21:00 Gabapentin (Neurontin) 600 mg QAM PO Last administered on 03/22/19 09:21; Admin Dose 600 MG; Start 03/16/19 at 09:00 Levothyroxine Sodium (Synthroid) 125 mcg BEFORE BREAKFAST PO Last administered on 03/22/19 06:16; Admin Dose 125 MCG; Start 03/16/19 at 07:00 Mirtazapine (Remeron) 30 mg HS PO Last administered on 03/21/19 20:35; Admin Dose 30 MG; Start 03/15/19 at 21:00 Pantoprazole (Protonix Tab) 40 mg DAILY@06 PO Last administered on 03/22/19 05:30; Admin Dose 40 MG; Start 03/16/19 at 06:00 Zolpidem Tartrate (Ambien) 5 mg HS PRN PO INSOMNIA Last administered on 03/21/19 00:28; Admin Dose 5 MG; Start 03/15/19 at 23:00 Atorvastatin Calcium (Lipitor) 10 mg DAILY@21 PO Last administered on 03/21/19 20:36; Admin Dose 10 MG; Start 03/15/19 at 23:00 Oxycodone/ Acetaminophen (Endocet (10/ 325)) 1 tab Q4H PRN PO .PAIN 5-10 Last administered on 03/21/19 21:10; Admin Dose 1 TAB; Start 03/16/19 at 14:00 Oxycodone/ Acetaminophen (Endocet (10/ 325)) 2 tab Q4H PRN PO .PAIN 6-10 Last administered on 03/22/19 01:50; Admin Dose 2 TAB; Start 03/16/19 at 14:00 Hydromorphone HCl (Dilaudid) 0.2 mg Q1H PRN IV .BREAKTHROUGH PAIN Last administered on 03/22/19 11:09; Admin Dose 0.2 MG; Start 03/16/19 at 14:00 Ondansetron HCl (Zofran Inj) 4 mg Q6H PRN IV NAUSEA/VOMITING Last administered on 03/17/19 17:21; Admin Dose 4 MG; Start 03/16/19 at 14:00 Bisacodyl (Dulcolax Supp) 10 mg DAILY PRN [place] .CONSTIPATION Last administered on 03/21/19 13:13; Admin Dose 10 MG; Start 03/16/19 at 14:00 Docusate Sodium (Colace) 100 mg BID PO Last administered on 03/22/19 09:21; Admin Dose 100 MG; Start 03/16/19 at 21:00 Al Hydrox/Mg Hydrox/Simethicone (Mag-Al Plus) 15 ml Q6H PRN PO .CONSTIPATION/DYSPEPSIA Last administered on 03/20/19 09:39; Admin Dose 15 ML; Start 03/16/19 at 14:00 Acetaminophen (Tylenol Tab) 650 mg Q4H PRN PO TORRES OR TEMP GREATER THAN 101.3F; Start 03/16/19 at 14:00 Cyclobenzaprine HCl (Flexeril) 5 mg TID PRN PO .MUSCLE SPASM Last administered on 03/20/19 19:05; Admin Dose 5 MG; Start 03/16/19 at 14:00 Phenol (Cepastat Lozenge) 1 lozenge PRN PRN [place] .SORE THROAT Last administered on 03/21/19 03:41; Admin Dose 1 LOZENGE; Start 03/16/19 at 14:00 Diphenhydramine HCl (Benadryl) 25 mg Q6H PRN PO .ITCHING Last administered on 03/22/19 11:08; Admin Dose 25 MG; Start 03/16/19 at 14:00 Diphenhydramine HCl (Benadryl) 25 mg Q6H PRN IV .ITCHING Last administered on 03/21/19 20:34; Admin Dose 25 MG; Start 03/16/19 at 14:00 Naloxone HCl (Narcan) 0.2 mg Q2M PRN IV .RR 8 BREATHS/MIN OR LESS; Start 03/16/19 at 14:00 Miscellaneous Information 1. Hold RADIO DESPATCHER at 1,000... RADIO DESPATCHER IV ; Start 03/16/19 at 14:00 Testosterone (Androgel) 5 gm DAILY TOP Last administered on 03/22/19 10:51; Admin Dose 5 GM; Start 03/17/19 at 09:00 Hydromorphone HCl (Dilaudid RADIO DESPATCHER) RADIO DESPATCHER to be started in PACU Q4PCA IV Last administered on 03/17/19 23:22; Admin Dose 6 MG; Start 03/16/19 at 23:00 Modafinil (Provigil) 400 mg DAILY PO Last administered on 03/22/19 10:51; Admin Dose 400 MG; Start 03/17/19 at 12:00 Heparin Sodium (Porcine) (Heparin (1000 Units/ml)) 7,700 unit PER PROTOCOL PRN IV aPTT<47; Start 03/18/19 at 22:00 Heparin Sodium (Porcine) (Heparin (1000 Units/ml)) 3,900 unit PER PROTOCOL PRN IV aPTT<47-57; Start 03/18/19 at 22:00 Heparin Sodium (Porcine) 250 ml @ 17.5 mls/hr PER PROTOCOL IV Last administered on 03/21/19 13:11; Admin Dose 16.5 MLS/HR; Start 03/18/19 at 22:00 Lorazepam (Ativan) 2 mg TID PRN PO ANXIETY Last administered on 03/22/19 11:42; Admin Dose 2 MG; Start 03/19/19 at 12:30 Methylnaltrexone [place] (Relistor) 12 mg DAILY SC Last administered on 03/22/19 09:20; Admin Dose 12 MG; Start 03/20/19 at 09:00 Ferrous Sulfate (Ferrous Sulfate (Ec)) 325 mg BID PO Last administered on 03/22/19 09:21; Admin Dose 325 MG; Start 03/20/19 at 09:00 Albuterol (Proventil 0.083% (Neb)) 2.5 mg Q4H RESP THERAPY PRN HHN SHORTNESS OF BREATH; Start 03/21/19 at 06:30 Assessment/Plan Hospital Course (Demo Recall) IMP: 1. Acute PE/LLE DVT--provoked. Tolerating heparin gtt 2. s/p spina fusion surgery 3. Anxiety d/o 4. HTN 5. HLD RECS: 1. transition to Eliquis if okay with spinal surgery 2. Continue spine surgery recommendations 3. Mobilize OOB; okay to mobilize from pulm standpoint. 4. PT/OT 5. Lactulose prn until BM DC planning to retirement facility okay from pulmonary standpoint ROBBY MCLEOD MD, [facility] March 22, 2019 12:52
--- NOTE | 2019-03-22 13:53 | PN ---
Date/Time of Note Date/Time of Note DATE: 03/22/19 TIME: 13:50 Assessment/Plan VTE [place] [facility] [place]: 6 [place] [facility] [place] SCD contraindicated: bilateral LE trauma Pharmacological prophylaxis: heparin Lines/Catheters IV Catheter Type (from [place]): Peripheral IV Urinary Cath still in place: No Assessment/Plan Problems: (1) S/P lumbar and lumbosacral fusion by anterior technique Onset Date: ~ 03/15/2019 Status: Acute Comment: He has had enough days of IV heparin that we can transition over to oral agent therapy and initiate the process for rehabilitation. (2) S/P lumbar fusion Onset Date: ~ 03/16/2019 Status: Acute Comment: As above. (3) Pulmonary embolism during current hospitalization Status: Acute Comment: Noted. No further episodes and now fully anticoagulated. Transitioning over to Eliquis 5 mg twice daily full dose (4) Postoperative anemia Status: Acute Comment: He actually had a rather significant iron deficiency anemia. This will need to be worked up as an outpatient. In the meantime he is doing well and is on oral iron replacement therapy (5) Hyperlipidemia Status: Chronic Comment: Continue with statin therapy Qualifiers: Hyperlipidemia type: pure hypercholesterolemia Qualified Codes: E78.00 - Pure hypercholesterolemia, unspecified (6) Acquired hypothyroidism Status: Chronic Comment: Continue with replacement therapy (7) Benign prostatic hyperplasia Status: Chronic Comment: Adequate control and compensation Qualifiers: Lower urinary tract symptom presence: symptoms absent Qualified Codes: N40.0 - Benign prostatic hyperplasia without lower urinary tract symptoms (8) Anxiety disorder Status: Chronic Comment: Adequate control Qualifiers: Anxiety disorder type: generalized anxiety disorder Qualified Codes: F41.1 - Generalized anxiety disorder (9) Chronic pain syndrome Status: Chronic Comment: Adequate control at this time. Please note the drug-induced const ipation (10) Obstructive sleep apnea Status: Chronic Comment: Nocturnal BiPAP Result Diagram: 03/22/1951103/22/19511 Results 24hrs Laboratory Tests Test 03/21/19 13:56 03/21/19 20:20 03/22/19 05:12 03/22/19 05:13 Activated 75.9 *H 75.6 *H 49.2 H Partial Thromboplast Time White Blood Count 6.2 # Red Blood Count 3.50 #L Hemoglobin 10.8 #L Hematocrit 32.3 #L Mean Corpuscular Volume 92.3 Mean Corpuscular 30.9 Hemoglobin Mean Corpuscular 33.4 Hemoglobin Concent Red Cell Distribution 14.6 H Width Platelet Count 274 # Mean Platelet Volume 9.1 Immature Granulocytes % 1.000 H Neutrophils % 52.0 Lymphocytes % 28.0 Monocytes % 11.5 H Eosinophils % 7.0 Basophils % 0.5 Nucleated Red Blood 0.0 Cells % Immature Granulocytes # 0.060 H Neutrophils # 3.2 Lymphocytes # 1.7 Monocytes # 0.7 Eosinophils # 0.4 Basophils # 0.0 Nucleated Red Blood 0.0 Cells # Sodium Level 142 Potassium Level 3.3 L Chloride Level 103 Carbon Dioxide Level 30 Anion Gap 9 Blood Urea Nitrogen 11 Creatinine 0.86 Est Glomerular Filtrat > 60 Rate mL/min Glucose Level 124 Calcium Level 9.3 Subjective 24 Hr Interval Summary Free Text/Dictation Patient reports no change in his breathing, no new chest pain or leg pain. He has having some left lower quadrant cramping after the surgical approach. Respiratory: shortness of breath (Reports that he is less short of breath and he had been) Cardiovascular: no complaints Gastrointestinal: no complaints Genitourinary: no complaints Exam/Review of Systems Exam Vitals Vital Signs Date Temp Pulse Resp B/P (MAP) Pulse Ox O2 O2 Flow FiO2 Time Delivery Rate 03/22/19 96 12:01 03/22/19 2.0 11:34 03/22/19 97.8 19 109/60 96 11:13 (76) 03/22/19 Nasal 04:00 Cannula 03/19/19 27 02:16 Intake and Output 03/21/19 03/21/19 03/22/19 1515:00 23:00 07:00 IntakeIntake Total 600 ml 650 ml OutputOutput Total 800 ml 900 ml BalanceBalance -200 ml -250 ml Constitutional: alert, oriented Respiratory: clear to auscultation, normal air movement Cardiovascular: regular rate and rhythm, nl pulses Gastrointestinal: soft, nl liver, spleen, non-tender Results Results 24hrs Laboratory Tests Test 03/21/19 13:56 03/21/19 20:20 03/22/19 05:12 03/22/19 05:13 Activated 75.9 *H 75.6 *H 49.2 H Partial Thromboplast Time White Blood Count 6.2 # Red Blood Count 3.50 #L Hemoglobin 10.8 #L Hematocrit 32.3 #L Mean Corpuscular Volume 92.3 Mean Corpuscular 30.9 Hemoglobin Mean Corpuscular 33.4 Hemoglobin Concent Red Cell Distribution 14.6 H Width Platelet Count 274 # Mean Platelet Volume 9.1 Immature Granulocytes % 1.000 H Neutrophils % 52.0 Lymphocytes % 28.0 Monocytes % 11.5 H Eosinophils % 7.0 Basophils % 0.5 Nucleated Red Blood 0.0 Cells % Immature Granulocytes # 0.060 H Neutrophils # 3.2 Lymphocytes # 1.7 Monocytes # 0.7 Eosinophils # 0.4 Basophils # 0.0 Nucleated Red Blood 0.0 Cells # Sodium Level 142 Potassium Level 3.3 L Chloride Level 103 Carbon Dioxide Level 30 Anion Gap 9 Blood Urea Nitrogen 11 Creatinine 0.86 Est Glomerular Filtrat > 60 Rate mL/min Glucose Level 124 Calcium Level 9.3 Medications Medication Current Medications Aripiprazole (Abilify) 5 mg DAILY PO Last administered on 03/22/19 09:21; Admin Dose 5 MG; Start 03/16/19 at 09:00 Gabapentin (Neurontin) 1,800 mg QHS PO Last administered on 03/21/19 20:36; Admin Dose 1,800 MG; Start 03/15/19 at 21:00 Gabapentin (Neurontin) 600 mg QAM PO Last administered on 03/22/19 09:21; Admin Dose 600 MG; Start 03/16/19 at 09:00 Levothyroxine Sodium (Synthroid) 125 mcg BEFORE BREAKFAST PO Last administered on 03/22/19 06:16; Admin Dose 125 MCG; Start 03/16/19 at 07:00 Mirtazapine (Remeron) 30 mg HS PO Last administered on 03/21/19 20:35; Admin Dose 30 MG; Start 03/15/19 at 21:00 Pantoprazole (Protonix Tab) 40 mg DAILY@06 PO Last administered on 03/22/19 05:30; Admin Dose 40 MG; Start 03/16/19 at 06:00 Zolpidem Tartrate (Ambien) 5 mg HS PRN PO INSOMNIA Last administered on 03/21/19 00:28; Admin Dose 5 MG; Start 03/15/19 at 23:00 Atorvastatin Calcium (Lipitor) 10 mg DAILY@21 PO Last administered on 03/21/19 20:36; Admin Dose 10 MG; Start 03/15/19 at 23:00 Oxycodone/ Acetaminophen (Endocet (10/ 325)) 1 tab Q4H PRN PO .PAIN 5-10 Last administered on 03/21/19 21:10; Admin Dose 1 TAB; Start 03/16/19 at 14:00 Oxycodone/ Acetaminophen (Endocet (10/ 325)) 2 tab Q4H PRN PO .PAIN 6-10 Last administered on 03/22/19 01:50; Admin Dose 2 TAB; Start 03/16/19 at 14:00 Hydromorphone HCl (Dilaudid) 0.2 mg Q1H PRN IV .BREAKTHROUGH PAIN Last administered on 03/22/19 11:09; Admin Dose 0.2 MG; Start 03/16/19 at 14:00 Ondansetron HCl (Zofran Inj) 4 mg Q6H PRN IV NAUSEA/VOMITING Last administered on 03/17/19 17:21; Admin Dose 4 MG; Start 03/16/19 at 14:00 Bisacodyl (Dulcolax Supp) 10 mg DAILY PRN [place] .CONSTIPATION Last administered on 03/21/19 13:13; Admin Dose 10 MG; Start 03/16/19 at 14:00 Docusate Sodium (Colace) 100 mg BID PO Last administered on 03/22/19 09:21; Admin Dose 100 MG; Start 03/16/19 at 21:00 Al Hydrox/Mg Hydrox/Simethicone (Mag-Al Plus) 15 ml Q6H PRN PO .CONSTIPATION/DYSPEPSIA Last administered on 03/20/19 09:39; Admin Dose 15 ML; Start 03/16/19 at 14:00 Acetaminophen (Tylenol Tab) 650 mg Q4H PRN PO TORRES OR TEMP GREATER THAN 101.3F; Start 03/16/19 at 14:00 Cyclobenzaprine HCl (Flexeril) 5 mg TID PRN PO .MUSCLE SPASM Last administered on 03/20/19 19:05; Admin Dose 5 MG; Start 03/16/19 at 14:00 Phenol (Cepastat Lozenge) 1 lozenge PRN PRN [place] .SORE THROAT Last administered on 03/21/19 03:41; Admin Dose 1 LOZENGE; Start 03/16/19 at 14:00 Diphenhydramine HCl (Benadryl) 25 mg Q6H PRN PO .ITCHING Last administered on 03/22/19 11:08; Admin Dose 25 MG; Start 03/16/19 at 14:00 Diphenhydramine HCl (Benadryl) 25 mg Q6H PRN IV .ITCHING Last administered on 03/21/19 20:34; Admin Dose 25 MG; Start 03/16/19 at 14:00 Naloxone HCl (Narcan) 0.2 mg Q2M PRN IV .RR 8 BREATHS/MIN OR LESS; Start 03/16/19 at 14:00 Miscellaneous Information 1. Hold FALAFEL CART COOK at 1,000... FALAFEL CART COOK IV ; Start 03/16/19 at 14:00 Testosterone (Androgel) 5 gm DAILY TOP Last administered on 03/22/19 10:51; Admin Dose 5 GM; Start 03/17/19 at 09:00 Hydromorphone HCl (Dilaudid FALAFEL CART COOK) FALAFEL CART COOK to be started in PACU Q4PCA IV Last administered on 03/17/19 23:22; Admin Dose 6 MG; Start 03/16/19 at 23:00 Modafinil (Provigil) 400 mg DAILY PO Last administered on 03/22/19 10:51; Admin Dose 400 MG; Start 03/17/19 at 12:00 Heparin Sodium (Porcine) (Heparin (1000 Units/ml)) 7,700 unit PER PROTOCOL PRN IV aPTT<47; Start 03/18/19 at 22:00 Heparin Sodium (Porcine) (Heparin (1000 Units/ml)) 3,900 unit PER PROTOCOL PRN IV aPTT<47-57; Start 03/18/19 at 22:00 Heparin Sodium (Porcine) 250 ml @ 17.5 mls/hr PER PROTOCOL IV Last administered on 03/21/19 13:11; Admin Dose 16.5 MLS/HR; Start 03/18/19 at 22:00 Lorazepam (Ativan) 2 mg TID PRN PO ANXIETY Last administered on 03/22/19 11:42; Admin Dose 2 MG; Start 03/19/19 at 12:30 Methylnaltrexone [place] (Relistor) 12 mg DAILY SC Last administered on 03/22/19at 09:20; Admin Dose 12 MG; Start 03/20/19 at 09:00 Ferrous Sulfate (Ferrous Sulfate (Ec)) 325 mg BID PO Last administered on 03/22/19at 09:21; Admin Dose 325 MG; Start 03/20/19 at 09:00; Stop 04/19/19 at 08:59 Albuterol (Proventil 0.083% (Neb)) 2.5 mg Q4H RESP THERAPY PRN HHN SHORTNESS OF BREATH; Start 03/21/19 at 06:30 Ascorbic Acid (Vitamin C) 500 mg BID PO ; Start 03/22/19 at 21:00; Stop 04/21/19 at 20:59 JAGUAR GRAVES MD March 22, 2019 13:53
[2019-03-22] MEDS: APIXABAN 5 MG TABLET PO SCH ×2 (16:43→21:00)
--- NOTE | 2019-03-22 16:50 | PN ---
Date/Time of Note Date/Time of Note DATE: 03/22/19 TIME: 16:48 Assessment/Plan Lines/Catheters IV Catheter Type (from Nrsg): Peripheral IV Ross in Place (from Nrsg): No Assessment/Plan Assessment/Plan s/p L2-S1 fusion resume PT when cleared by cardiology and Dr. Guerrero transfer to 4[facility] when cleared by cardio and Dr. 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[facility] Subjective 24 Hr Interval Summary left groin and back pain improving no longer notes CP or SOB Exam/Review of Systems Vital Signs Vitals Vital Signs Date Temp Pulse Resp B/P (MAP) Pulse Ox O2 O2 Flow FiO2 Time Delivery Rate 03/22/19 80 16:01 03/22/19 2.0 11:34 03/22/19 97.8 19 109/60 96 11:13 (76) 03/22/19 Nasal 04:00 Cannula 03/19/19 27 02:16 Intake and Output 03/21/19 03/21/19 03/22/19 1515:00 23:00 07:00 IntakeIntake Total 600 ml 650 ml OutputOutput Total 800 ml 900 ml BalanceBalance -200 ml -250 ml Exam Free Text/Dictation exam unchanged incisions c/d/i CXR no acute process EKG normal sinus rhythm Results Result Diagram: 03/22/19 0503/22/1912 ATA CAMP PA-C March 22, 2019 16:50
[2019-03-22] MEDS: HEPARIN 25000 UNITS/250 ML 250 ML IV SCH (20:19)
[2019-03-22] MEDS: ATORVASTATIN 10 MG TAB PO SCH (21:06)
[2019-03-22] MEDS: MIRTAZAPINE 15 MG TAB PO SCH (21:06)
[2019-03-22] MEDS: ASCORBIC ACID 500 MG TAB PO SCH (21:07)
[2019-03-23] MEDS: OXYCODONE/ACETAMINOPHEN (10/325) TAB PO PRN ×4 (01:22→18:24)
[2019-03-23 01:51] VITALS: BP 125/60; PULSE 80; RESP 20
[2019-03-23] MEDS: CYCLOBENZAPRINE 10 MG TAB PO PRN (04:53)
[2019-03-23] MEDS: LEVOTHYROXINE 125 MCG TAB PO SCH (06:44)
[2019-03-23] MEDS: PANTOPRAZOLE (EC) 40 MG TAB PO SCH (06:44)
[2019-03-23 08:05] VITALS: BP 107/59; PULSE 79; RESP 20
[2019-03-23] MEDS: GABAPENTIN 300 MG CAP PO SCH ×2 (08:52→21:18)
[2019-03-23] MEDS: APIXABAN 5 MG TABLET PO SCH ×2 (08:52→21:19)
[2019-03-23] MEDS: ARIPIPRAZOLE 5 MG TAB PO SCH (08:52)
[2019-03-23] MEDS: DOCUSATE SODIUM 100 MG CAP PO SCH ×2 (08:52→21:19)
[2019-03-23] MEDS: ASCORBIC ACID 500 MG TAB PO SCH ×2 (08:52→21:19)
[2019-03-23] MEDS: FERROUS SULFATE (EC) 325 MG TAB PO SCH ×2 (08:53→21:19)
[2019-03-23] MEDS: METHYLNALTREXONE 12 MG/0.6 ML VIAL SC SCH (08:53)
[2019-03-23] MEDS: MODAFINIL 200 MG TAB PO SCH (10:08)
[2019-03-23] MEDS: TESTOSTERONE 1% GEL 5 GM PACKET TOP SCH ×2 (10:30→18:30)
--- NOTE | 2019-03-23 11:27 | PN ---
Date/Time of Note Date/Time of Note DATE: 03/23/19 TIME: 11:26 Assessment/Plan Lines/Catheters IV Catheter Type (from Nrsg): Peripheral IV Ross in Place (from Nrsg): No Assessment/Plan Assessment/Plan clear for D/C to rehab from ortho perspective will defer to cardiac/pulmonary and Dr. Guerrero as to whether he's stable for D/C to rehab order voltaren gel for right shoulder pain Subjective 24 Hr Interval Summary c/o LBP PT went well denies CP/SOB Exam/Review of Systems Vital Signs Vitals Vital Signs Date Temp Pulse Resp B/P (MAP) Pulse Ox O2 O2 Flow FiO2 Time Delivery Rate 03/23/19 97.5 79 20 107/59 94 08:05 (75) 03/23/19 BIPAP 01:51 03/22/19 2.0 11:34 Intake and Output 03/22/19 03/22/19 03/23/19 1515:00 23:00 07:00 IntakeIntake Total 1338 ml 240 ml OutputOutput Total 1000 ml BalanceBalance 338 ml 240 ml Exam Free Text/Dictation AOx3 comfortable incisions c/d/i exam unchanged Results Result Diagram: 03/23/19 0501 03/23/19 0501 ATA CAMP PA-C March 23, 2019 11:27
[2019-03-23] MEDS: DICLOFENAC SODIUM 1% GEL 100 GM TUBE TP SCH ×3 (12:20→21:23)
[2019-03-23] MEDS: LORAZEPAM 1 MG TAB PO PRN (12:21)
--- NOTE | 2019-03-23 12:52 | PN ---
Date/Time of Note Date/Time of Note DATE: 03/23/19 TIME: 12:49 Assessment/Plan VTE Prophylaxis Risk score (from Nsg)>0 risk: 3 SCD applied (from Nsg): Yes SCD contraindicated: low risk/ambulating Pharmacological prophylaxis: apixaban Pharm contraindication: low risk/ambulating Lines/Catheters IV Catheter Type (from Nrsg): Peripheral IV Urinary Cath still in place: No Assessment/Plan Problems: (1) S/P lumbar and lumbosacral fusion by anterior technique Onset Date: ~ 03/15/2019 Status: Acute Comment: Resting with physical therapy. Please note the orthopedist [facility] However I do not have any notes from case management identifying that that set up. I will try and get that straightened out (2) S/P lumbar fusion Onset Date: ~ 03/16/2019 Status: Acute Comment: As above. (3) Pulmonary embolism during current hospitalization Status: Acute Comment: Able on Eliquis. Plan is for 6 months of Eliquis minimum (4) DVT (deep venous thrombosis) Status: Acute Comment: As above Qualifiers: DVT location: lower extremity Chronicity: acute Laterality: left (5) Postoperative anemia Status: Acute Comment: Coming into line nicely. This will need an outpatient work-up looking at the GI tract (6) Hyperlipidemia Status: Chronic Comment: Continue with statin therapy Qualifiers: Hyperlipidemia type: pure hypercholesterolemia Qualified Codes: E78.00 - Pure hypercholesterolemia, unspecified (7) Testicular hypofunction Status: Chronic Comment: Stable. (8) Obstructive sleep apnea Status: Chronic Comment: Noted. (9) Chronic pain syndrome Status: Chronic Comment: Adequate control at this time (10) Acquired hypothyroidism Status: Chronic Comment: Stable on replacement. 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 He has never had MRI scanning and he is quite worried about this. I will go ahead and order the MRI scan but I still have him here in the hosp ital. However this will not slow down or stop discharge Qualifiers: Anxiety disorder type: generalized anxiety disorder Qualified Codes: F41.1 - Generalized anxiety disorder Result Diagram: 03/23/19 0501 03/23/19 0501 Results 24hrs Laboratory Tests Test 03/22/19 18:13 03/23/19 05:01 Prothrombin Time 13.9 Prothrombin Time Ratio 1.1 INR International Normalized Ratio 1.06 Activated Partial Thromboplast Time 75.7 *H White Blood Count 6.0 Red Blood Count 3.16 L Hemoglobin 9.8 L Hematocrit 29.6 L Mean Corpuscular Volume 93.7 Mean Corpuscular Hemoglobin 31.0 Mean Corpuscular Hemoglobin Concent 33.1 Red Cell Distribution Width 14.6 H Platelet Count 269 Mean Platelet Volume 8.9 Immature Granulocytes % 1.000 H Neutrophils % 54.4 Lymphocytes % 24.0 Monocytes % 12.7 H Eosinophils % 7.2 H Basophils % 0.7 Nucleated Red Blood Cells % 0.0 Immature Granulocytes # 0.060 H Neutrophils # 3.3 Lymphocytes # 1.4 Monocytes # 0.8 Eosinophils # 0.4 Basophils # 0.0 Nucleated Red Blood Cells # 0.0 Sodium Level 139 Potassium Level 4.8 Chloride Level 105 Carbon Dioxide Level 28 Anion Gap 6 Blood Urea Nitrogen 12 Creatinine 0.77 Est Glomerular Filtrat Rate mL/min > 60 Glucose Level 96 Calcium Level 8.7 Magnesium Level 2.4 Subjective 24 Hr Interval Summary Free Text/Dictation Patient reports breathing is back to baseline. No chest pain no pleurisy. Constitutional: no complaints Respiratory: no complaints Cardiovascular: no complaints Gastrointestinal: no complaints Musculoskeletal: back pain, other (Right knee pain) Exam/Review of Systems Exam Vitals Vital Signs Date Temp Pulse Resp B/P (MAP) Pulse Ox O2 O2 Flow FiO2 Time Delivery Rate 03/23/19 97.5 79 20 107/59 94 08:05 (75) 03/23/19 BIPAP 01:51 03/22/19 2.0 11:34 Intake and Output 03/22/19 03/22/19 03/23/19 1515:00 23:00 07:00 IntakeIntake Total 1338 ml 240 ml OutputOutput Total 1000 ml BalanceBalance 338 ml 240 ml Constitutional: alert, oriented Neck: supple, non-tender Respiratory: clear to auscultation, normal air movement Cardiovascular: regular rate and rhythm, nl pulses Gastrointestinal: soft, nl liver, spleen, non-tender Results Results 24hrs Laboratory Tests Test 03/22/19 18:13 03/23/19 05:01 Prothrombin Time 13.9 Prothrombin Time Ratio 1.1 INR International Normalized Ratio 1.06 Activated Partial Thromboplast Time 75.7 *H White Blood Count 6.0 Red Blood Count 3.16 L Hemoglobin 9.8 L Hematocrit 29.6 L Mean Corpuscular Volume 93.7 Mean Corpuscular Hemoglobin 31.0 Mean Corpuscular Hemoglobin Concent 33.1 Red Cell Distribution Width 14.6 H Platelet Count 269 Mean Platelet Volume 8.9 Immature Granulocytes % 1.000 H Neutrophils % 54.4 Lymphocytes % 24.0 Monocytes % 12.7 H Eosinophils % 7.2 H Basophils % 0.7 Nucleated Red Blood Cells % 0.0 Immature Granulocytes # 0.060 H Neutrophils # 3.3 Lymphocytes # 1.4 Monocytes # 0.8 Eosinophils # 0.4 Basophils # 0.0 Nucleated Red Blood Cells # 0.0 Sodium Level 139 Potassium Level 4.8 Chloride Level 105 Carbon Dioxide Level 28 Anion Gap 6 Blood Urea Nitrogen 12 Creatinine 0.77 Est Glomerular Filtrat Rate mL/min > 60 Glucose Level 96 Calcium Level 8.7 Magnesium Level 2.4 Medications Medication Current Medications Aripiprazole (Abilify) 5 mg DAILY PO Last administered on 03/23/19 08:52; Admin Dose 5 MG; Start 03/16/19 at 09:00 Gabapentin (Neurontin) 1,800 mg QHS PO Last administered on 03/22/19 21:06; Admin Dose 1,800 MG; Start 03/15/19 at 21:00 Gabapentin (Neurontin) 600 mg QAM PO Last administered on 03/23/19 08:52; Admin Dose 600 MG; Start 03/16/19 at 09:00 Levothyroxine Sodium (Synthroid) 125 mcg BEFORE BREAKFAST PO Last administered on 03/23/19 06:44; Admin Dose 125 MCG; Start 03/16/19 at 07:00 Mirtazapine (Remeron) 30 mg HS PO Last administered on 03/22/19 21:06; Admin Dose 30 MG; Start 03/15/19 at 21:00 Pantoprazole (Protonix Tab) 40 mg DAILY@06 PO Last administered on 03/23/19 06:44; Admin Dose 40 MG; Start 03/16/19 at 06:00 Zolpidem Tartrate (Ambien) 5 mg HS PRN PO INSOMNIA Last administered on 03/21/19 00:28; Admin Dose 5 MG; Start 03/15/19 at 23:00 Atorvastatin Calcium (Lipitor) 10 mg DAILY@21 PO Last administered on 03/22/19 21:06; Admin Dose 10 MG; Start 03/15/19 at 23:00 Oxycodone/ Acetaminophen (Endocet (10/ 325)) 1 tab Q4H PRN PO .PAIN 5-10 Last administered on 03/21/19 21:10; Admin Dose 1 TAB; Start 03/16/19 at 14:00 Oxycodone/ Acetaminophen (Endocet (10/ 325)) 2 tab Q4H PRN PO .PAIN 6-10 Last administered on 03/23/19 10:16; Admin Dose 2 TAB; Start 03/16/19 at 14:00 Hydromorphone HCl (Dilaudid) 0.2 mg Q1H PRN IV .BREAKTHROUGH PAIN Last administered on 03/22/19 11:09; Admin Dose 0.2 MG; Start 03/16/19 at 14:00 Ondansetron HCl (Zofran Inj) 4 mg Q6H PRN IV NAUSEA/VOMITING Last administered on 03/17/19 17:21; Admin Dose 4 MG; Start 03/16/19 at 14:00 Bisacodyl (Dulcolax Supp) 10 mg DAILY PRN [place] .CONSTIPATION Last administered on 03/21/19 13:13; Admin Dose 10 MG; Start 03/16/19 at 14:00 Docusate Sodium (Colace) 100 mg BID PO Last administered on 03/23/19 08:52; Admin Dose 100 MG; Start 03/16/19 at 21:00 Al Hydrox/Mg Hydrox/Simethicone (Mag-Al Plus) 15 ml Q6H PRN PO .CONSTIPATION/DYSPEPSIA Last administered on 03/20/19 09:39; Admin Dose 15 ML; Start 03/16/19 at 14:00 Acetaminophen (Tylenol Tab) 650 mg Q4H PRN PO TORRES OR TEMP GREATER THAN 101.3F; Start 03/16/19 at 14:00 Cyclobenzaprine HCl (Flexeril) 5 mg TID PRN PO .MUSCLE SPASM Last administered on 03/23/19 04:53; Admin Dose 5 MG; Start 03/16/19 at 14:00 Phenol (Cepastat Lozenge) 1 lozenge PRN PRN [place] .SORE THROAT Last administered on 03/21/19 03:41; Admin Dose 1 LOZENGE; Start 03/16/19 at 14:00 Diphenhydramine HCl (Benadryl) 25 mg Q6H PRN PO .ITCHING Last administered on 03/22/19 11:08; Admin Dose 25 MG; Start 03/16/19 at 14:00 Diphenhydramine HCl (Benadryl) 25 mg Q6H PRN IV .ITCHING Last administered on 03/21/19 20:34; Admin Dose 25 MG; Start 03/16/19 at 14:00 Naloxone HCl (Narcan) 0.2 mg Q2M PRN IV .RR 8 BREATHS/MIN OR LESS; Start 03/16/19 at 14:00 Miscellaneous Information 1. Hold FOREST WORKER at 1,000... FOREST WORKER IV ; Start 03/16/19 at 14:00 Testosterone (Androgel) 5 gm DAILY TOP Last administered on 03/22/19 10:51; Admin Dose 5 GM; Start 03/17/19 at 09:00 Hydromorphone HCl (Dilaudid FOREST WORKER) FOREST WORKER to be started in PACU Q4PCA IV Last administered on 03/17/19 23:22; Admin Dose 6 MG; Start 03/16/19 at 23:00 Modafinil (Provigil) 400 mg DAILY PO Last administered on 03/23/19 10:08; Admin Dose 400 MG; Start 03/17/19 at 12:00 Lorazepam (Ativan) 2 mg TID PRN PO ANXIETY Last administered on 03/23/19 12:21; Admin Dose 2 MG; Start 03/19/19 at 12:30 Methylnaltrexone [place] (Relistor) 12 mg DAILY SC Last administered on 03/23/19 08:53; Admin Dose 12 MG; Start 03/20/19 at 09:00 Ferrous Sulfate (Ferrous Sulfate (Ec)) 325 mg BID PO Last administered on 03/23/19 08:53; Admin Dose 325 MG; Start 03/20/19 at 09:00; Stop 04/19/19 at 08:59 Albuterol (Proventil 0.083% (Neb)) 2.5 mg Q4H RESP THERAPY PRN HHN SHORTNESS OF BREATH; Start 03/21/19 at 06:30 Ascorbic Acid (Vitamin C) 500 mg BID PO Last administered on 03/23/19at 08:52; Admin Dose 500 MG; Start 03/22/19 at 21:00; Stop 04/21/19 at 20:59 Apixaban (Eliquis) 5 mg BID PO Last administered on 03/23/19at 08:52; Admin Dose 5 MG; Start 03/22/19 at 14:00 Diclofenac Sodium (Voltaren 1% Gel) 2 gm QID TP Last administered on 03/23/19at 12:20; Admin Dose 2 GM; Start 03/23/19 at 13:00 JAGUAR GRAVES MD March 23, 2019 12:52
--- NOTE | 2019-03-23 14:05 | CONS ---
Consult Date/Type/Reason Admit Date/Time Mar 15, 2019 at 09:57 Initial Consult Date 03/19/19 Type of Consult Pulmonary Requesting Provider: SUNDEEP OROPEZA MD Date/Time of Note DATE: 03/23/19 TIME: 14:04 Subjective Patient appears comfortable this morning no respiratory distress Objective Vital Signs Date Temp Pulse Resp B/P (MAP) Pulse Ox O2 O2 Flow FiO2 Time Delivery Rate 03/23/19 97.5 79 20 107/59 94 08:05 (75) 03/23/19 BIPAP 01:51 03/22/19 2.0 11:34 Intake and Output 03/22/19 03/22/19 03/23/19 1515:00 23:00 07:00 IntakeIntake Total 1338 ml 240 ml OutputOutput Total 1000 ml BalanceBalance 338 ml 240 ml Exam GENERAL: Well-nourished well-developed gentleman comfortable at rest VITAL SIGNS: per chart NECK: Supple. No JVD or lymphadenopathy. CARDIAC EXAM: S1, S2. No added sounds or murmurs. CHEST: clear bilaterally, No added sounds, rales or wheezes ABDOMEN: Soft, nontender. No guarding or rebound. EXTREMITIES: No cyanosis, clubbing or edema. NEUROLOGIC: Generalized weakness. No focal deficits. Vent Setting Fraction of Inspired Oxygen pe: 27 Results/Medications Result Diagram: 03/23/19 0501 03/23/19 0501 Results 24 hrs Laboratory Tests Test 03/22/19 18:13 03/23/19 05:01 Prothrombin Time 13.9 Prothrombin Time Ratio 1.1 INR International Normalized Ratio 1.06 Activated Partial Thromboplast Time 75.7 *H White Blood Count 6.0 Red Blood Count 3.16 L Hemoglobin 9.8 L Hematocrit 29.6 L Mean Corpuscular Volume 93.7 Mean Corpuscular Hemoglobin 31.0 Mean Corpuscular Hemoglobin Concent 33.1 Red Cell Distribution Width 14.6 H Platelet Count 269 Mean Platelet Volume 8.9 Immature Granulocytes % 1.000 H Neutrophils % 54.4 Lymphocytes % 24.0 Monocytes % 12.7 H Eosinophils % 7.2 H Basophils % 0.7 Nucleated Red Blood Cells % 0.0 Immature Granulocytes # 0.060 H Neutrophils # 3.3 Lymphocytes # 1.4 Monocytes # 0.8 Eosinophils # 0.4 Basophils # 0.0 Nucleated Red Blood Cells # 0.0 Sodium Level 139 Potassium Level 4.8 Chloride Level 105 Carbon Dioxide Level 28 Anion Gap 6 Blood Urea Nitrogen 12 Creatinine 0.77 Est Glomerular Filtrat Rate mL/min > 60 Glucose Level 96 Calcium Level 8.7 Magnesium Level 2.4 Medications Current Medications Aripiprazole (Abilify) 5 mg DAILY PO Last administered on 03/23/19 08:52; Admin Dose 5 MG; Start 03/16/19 at 09:00 Gabapentin (Neurontin) 1,800 mg QHS PO Last administered on 03/22/19 21:06; Admin Dose 1,800 MG; Start 03/15/19 at 21:00 Gabapentin (Neurontin) 600 mg QAM PO Last administered on 03/23/19 08:52; Admin Dose 600 MG; Start 03/16/19 at 09:00 Levothyroxine Sodium (Synthroid) 125 mcg BEFORE BREAKFAST PO Last administered on 03/23/19 06:44; Admin Dose 125 MCG; Start 03/16/19 at 07:00 Mirtazapine (Remeron) 30 mg HS PO Last administered on 03/22/19 21:06; Admin Dose 30 MG; Start 03/15/19 at 21:00 Pantoprazole (Protonix Tab) 40 mg DAILY@06 PO Last administered on 03/23/19 06:44; Admin Dose 40 MG; Start 03/16/19 at 06:00 Zolpidem Tartrate (Ambien) 5 mg HS PRN PO INSOMNIA Last administered on 03/21/19 00:28; Admin Dose 5 MG; Start 03/15/19 at 23:00 Atorvastatin Calcium (Lipitor) 10 mg DAILY@21 PO Last administered on 03/22/19 21:06; Admin Dose 10 MG; Start 03/15/19 at 23:00 Oxycodone/ Acetaminophen (Endocet (10/ 325)) 1 tab Q4H PRN PO .PAIN 5-10 Last administered on 03/21/19 21:10; Admin Dose 1 TAB; Start 03/16/19 at 14:00 Oxycodone/ Acetaminophen (Endocet (10/ 325)) 2 tab Q4H PRN PO .PAIN 6-10 Last administered on 03/23/19 10:16; Admin Dose 2 TAB; Start 03/16/19 at 14:00 Hydromorphone HCl (Dilaudid) 0.2 mg Q1H PRN IV .BREAKTHROUGH PAIN Last administered on 03/22/19 11:09; Admin Dose 0.2 MG; Start 03/16/19 at 14:00 Ondansetron HCl (Zofran Inj) 4 mg Q6H PRN IV NAUSEA/VOMITING Last administered on 03/17/19 17:21; Admin Dose 4 MG; Start 03/16/19 at 14:00 Bisacodyl (Dulcolax Supp) 10 mg DAILY PRN [place] .CONSTIPATION Last administered on 03/21/19 13:13; Admin Dose 10 MG; Start 03/16/19 at 14:00 Docusate Sodium (Colace) 100 mg BID PO Last administered on 03/23/19 08:52; Admin Dose 100 MG; Start 03/16/19 at 21:00 Al Hydrox/Mg Hydrox/Simethicone (Mag-Al Plus) 15 ml Q6H PRN PO .CONSTIPATION/DYSPEPSIA Last administered on 03/20/19 09:39; Admin Dose 15 ML; Start 03/16/19 at 14:00 Acetaminophen (Tylenol Tab) 650 mg Q4H PRN PO TORRES OR TEMP GREATER THAN 101.3F; Start 03/16/19 at 14:00 Cyclobenzaprine HCl (Flexeril) 5 mg TID PRN PO .MUSCLE SPASM Last administered on 03/23/19 04:53; Admin Dose 5 MG; Start 03/16/19 at 14:00 Phenol (Cepastat Lozenge) 1 lozenge PRN PRN [place] .SORE THROAT Last administered on 03/21/19 03:41; Admin Dose 1 LOZENGE; Start 03/16/19 at 14:00 Diphenhydramine HCl (Benadryl) 25 mg Q6H PRN PO .ITCHING Last administered on 03/22/19 11:08; Admin Dose 25 MG; Start 03/16/19 at 14:00 Diphenhydramine HCl (Benadryl) 25 mg Q6H PRN IV .ITCHING Last administered on 03/21/19 20:34; Admin Dose 25 MG; Start 03/16/19 at 14:00 Naloxone HCl (Narcan) 0.2 mg Q2M PRN IV .RR 8 BREATHS/MIN OR LESS; Start 03/16/19 at 14:00 Miscellaneous Information 1. Hold STUDIO GRIP at 1,000... STUDIO GRIP IV ; Start 03/16/19 at 14:00 Testosterone (Androgel) 5 gm DAILY TOP Last administered on 03/22/19 10:51; Admin Dose 5 GM; Start 03/17/19 at 09:00 Hydromorphone HCl (Dilaudid STUDIO GRIP) STUDIO GRIP to be started in PACU Q4PCA IV Last administered on 03/17/19 23:22; Admin Dose 6 MG; Start 03/16/19 at 23:00 Modafinil (Provigil) 400 mg DAILY PO Last administered on 03/23/19 10:08; Admin Dose 400 MG; Start 03/17/19 at 12:00 Lorazepam (Ativan) 2 mg TID PRN PO ANXIETY Last administered on 03/23/19 12:21; Admin Dose 2 MG; Start 03/19/19 at 12:30 Methylnaltrexone [place] (Relistor) 12 mg DAILY SC Last administered on 03/23/19 08:53; Admin Dose 12 MG; Start 03/20/19 at 09:00 Ferrous Sulfate (Ferrous Sulfate (Ec)) 325 mg BID PO Last administered on 08:53; Admin Dose 325 MG; Start 03/20/19 at 09:00; Stop 04/19/19 at 08:59 Albuterol (Proventil 0.083% (Neb)) 2.5 mg Q4H RESP THERAPY PRN HHN SHORTNESS OF BREATH; Start 03/21/19 at 06:30 Ascorbic Acid (Vitamin C) 500 mg BID PO Last administered on 03/23/19 08:52; Admin Dose 500 MG; Start 03/22/19 at 21:00; Stop 04/21/19 at 20:59 Apixaban (Eliquis) 5 mg BID PO Last administered on 03/23/19 08:52; Admin Dose 5 MG; Start 03/22/19 at 14:00 Diclofenac Sodium (Voltaren 1% Gel) 2 gm QID TP Last administered on 03/23/19 12:20; Admin Dose 2 GM; Start 03/23/19 at 13:00 Assessment/Plan Hospital Course (Demo Recall) IMP: 1. Acute PE/LLE DVT--provoked. Tolerating heparin gtt 2. s/p spinal fusion surgery 3. Anxiety d/o 4. HTN 5. HLD RECS: 1. Continue Eliquis for 6 months. 2. Continue spine surgery recommendations 3. Mobilize OOB; okay to mobilize from pulm standpoint. 4. PT/OT 5. Lactulose prn until BM DC planning to [facility] facility okay from pulmonary standpoint ROBBY MCLEOD MD, [facility] March 23, 2019 14:05
[2019-03-23 15:03] VITALS: BP 136/69; PULSE 86; RESP 20
--- NOTE | 2019-03-23 15:46 | CONS ---
Assessment/Plan Assessment/Plan Hospital Course (Demo Recall) Acute pulmonary emboli/lower extremity DVT Preserved left ventricular ejection fraction Status post spinal surgery Hypertension Dyslipidemia Anxiety -Patient status post spinal surgery on this admission developed symptoms of pleuritic chest pain, shortness of breath and evidence of tachycardia and diagnosed with acute pulmonary emboli -Continue anticoagulation as tolerated -DC planning Consultation Date/Type/Reason Admit Date/Time Mar 15, 2019 at 09:57 Initial Consult Date 03/19/19 Type of Consult Cardiology Requesting Provider: SUNDEEP OROPEZA MD Date/Time of Note DATE: 03/23/19 TIME: 15:40 24 HR Interval Summary Free Text/Dictation Denies current shortness of breath or chest pain. Overall symptoms have been improving Exam/Review of Systems Vital Signs Vitals Vital Signs Date Temp Pulse Resp B/P (MAP) Pulse Ox O2 O2 Flow FiO2 Time Delivery Rate 03/23/19 97.5 79 20 107/59 94 08:05 (75) 03/23/19 BIPAP 01:51 03/22/19 2.0 11:34 Intake and Output 03/22/19 03/22/19 03/23/19 1515:00 23:00 07:00 IntakeIntake Total 1338 ml 240 ml OutputOutput Total 1000 ml BalanceBalance 338 ml 240 ml Exam Constitutional: alert, oriented (No apparent distress) Head: normocephalic Respiratory: other (Coarse breath sounds bilaterally, no wheezing) Cardiovascular: regular rate and rhythm (S1-S2 heard) Gastrointestinal: soft, non-tender, bowel sounds Extremities: other (No significant edema) Labs Result Diagram: 03/23/19 0501 03/23/19 0501 Results 24hrs Laboratory Tests Test 03/22/19 18:13 03/23/19 05:01 Prothrombin Time 13.9 Prothrombin Time Ratio 1.1 INR International Normalized Ratio 1.06 Activated Partial Thromboplast Time 75.7 *H White Blood Count 6.0 Red Blood Count 3.16 L Hemoglobin 9.8 L Hematocrit 29.6 L Mean Corpuscular Volume 93.7 Mean Corpuscular Hemoglobin 31.0 Mean Corpuscular Hemoglobin Concent 33.1 Red Cell Distribution Width 14.6 H Platelet Count 269 Mean Platelet Volume 8.9 Immature Granulocytes % 1.000 H Neutrophils % 54.4 Lymphocytes % 24.0 Monocytes % 12.7 H Eosinophils % 7.2 H Basophils % 0.7 Nucleated Red Blood Cells % 0.0 Immature Granulocytes # 0.060 H Neutrophils # 3.3 Lymphocytes # 1.4 Monocytes # 0.8 Eosinophils # 0.4 Basophils # 0.0 Nucleated Red Blood Cells # 0.0 Sodium Level 139 Potassium Level 4.8 Chloride Level 105 Carbon Dioxide Level 28 Anion Gap 6 Blood Urea Nitrogen 12 Creatinine 0.77 Est Glomerular Filtrat Rate mL/min > 60 Glucose Level 96 Calcium Level 8.7 Magnesium Level 2.4 Medications Medications Current Medications Aripiprazole (Abilify) 5 mg DAILY PO Last administered on 03/23/19 08:52; Admin Dose 5 MG; Start 03/16/19 at 09:00 Gabapentin (Neurontin) 1,800 mg QHS PO Last administered on 03/22/19 21:06; Admin Dose 1,800 MG; Start 03/15/19 at 21:00 Gabapentin (Neurontin) 600 mg QAM PO Last administered on 03/23/19 08:52; Admin Dose 600 MG; Start 03/16/19 at 09:00 Levothyroxine Sodium (Synthroid) 125 mcg BEFORE BREAKFAST PO Last administered on 03/23/19 06:44; Admin Dose 125 MCG; Start 03/16/19 at 07:00 Mirtazapine (Remeron) 30 mg HS PO Last administered on 03/22/19 21:06; Admin Dose 30 MG; Start 03/15/19 at 21:00 Pantoprazole (Protonix Tab) 40 mg DAILY@06 PO Last administered on 03/23/19 06:44; Admin Dose 40 MG; Start 03/16/19 at 06:00 Zolpidem Tartrate (Ambien) 5 mg HS PRN PO INSOMNIA Last administered on 03/21/19 00:28; Admin Dose 5 MG; Start 03/15/19 at 23:00 Atorvastatin Calcium (Lipitor) 10 mg DAILY@21 PO Last administered on 03/22/19 21:06; Admin Dose 10 MG; Start 03/15/19 at 23:00 Oxycodone/ Acetaminophen (Endocet (10/ 325)) 1 tab Q4H PRN PO .PAIN 5-10 Last administered on 03/21/19 21:10; Admin Dose 1 TAB; Start 03/16/19 at 14:00 Oxycodone/ Acetaminophen (Endocet (10/ 325)) 2 tab Q4H PRN PO .PAIN 6-10 Last administered on 03/23/19 10:16; Admin Dose 2 TAB; Start 03/16/19 at 14:00 Hydromorphone HCl (Dilaudid) 0.2 mg Q1H PRN IV .BREAKTHROUGH PAIN Last administered on 03/22/19 11:09; Admin Dose 0.2 MG; Start 03/16/19 at 14:00 Ondansetron HCl (Zofran Inj) 4 mg Q6H PRN IV NAUSEA/VOMITING Last administered on 03/17/19 17:21; Admin Dose 4 MG; Start 03/16/19 at 14:00 Bisacodyl (Dulcolax Supp) 10 mg DAILY PRN [place] .CONSTIPATION Last administered on 03/21/19 13:13; Admin Dose 10 MG; Start 03/16/19 at 14:00 Docusate Sodium (Colace) 100 mg BID PO Last administered on 03/23/19 08:52; Admin Dose 100 MG; Start 03/16/19 at 21:00 Al Hydrox/Mg Hydrox/Simethicone (Mag-Al Plus) 15 ml Q6H PRN PO .CONSTIPATION/DYSPEPSIA Last administered on 03/20/19 09:39; Admin Dose 15 ML; Start 03/16/19 at 14:00 Acetaminophen (Tylenol Tab) 650 mg Q4H PRN PO TORRES OR TEMP GREATER THAN 101.3F; Start 03/16/19 at 14:00 Cyclobenzaprine HCl (Flexeril) 5 mg TID PRN PO .MUSCLE SPASM Last administered on 03/23/19 04:53; Admin Dose 5 MG; Start 03/16/19 at 14:00 Phenol (Cepastat Lozenge) 1 lozenge PRN PRN [place] .SORE THROAT Last administered on 03/21/19 03:41; Admin Dose 1 LOZENGE; Start 03/16/19 at 14:00 Diphenhydramine HCl (Benadryl) 25 mg Q6H PRN PO .ITCHING Last administered on 03/22/19 11:08; Admin Dose 25 MG; Start 03/16/19 at 14:00 Diphenhydramine HCl (Benadryl) 25 mg Q6H PRN IV .ITCHING Last administered on 03/21/19 20:34; Admin Dose 25 MG; Start 03/16/19 at 14:00 Naloxone HCl (Narcan) 0.2 mg Q2M PRN IV .RR 8 BREATHS/MIN OR LESS; Start 03/16/19 at 14:00 Miscellaneous Information 1. Hold NOODLE MAKER at 1,000... NOODLE MAKER IV ; Start 03/16/19 at 14:00 Testosterone (Androgel) 5 gm DAILY TOP Last administered on 03/22/19 10:51; Admin Dose 5 GM; Start 03/17/19 at 09:00 Hydromorphone HCl (Dilaudid NOODLE MAKER) NOODLE MAKER to be started in PACU Q4PCA IV Last administered on 03/17/19 23:22; Admin Dose 6 MG; Start 03/16/19 at 23:00 Modafinil (Provigil) 400 mg DAILY PO Last administered on 03/23/19 10:08; Admin Dose 400 MG; Start 03/17/19 at 12:00 Lorazepam (Ativan) 2 mg TID PRN PO ANXIETY Last administered on 03/23/19 12:21; Admin Dose 2 MG; Start 03/19/19 at 12:30 Methylnaltrexone [place] (Relistor) 12 mg DAILY SC Last administered on 03/23/19 08:53; Admin Dose 12 MG; Start 03/20/19 at 09:00 Ferrous Sulfate (Ferrous Sulfate (Ec)) 325 mg BID PO Last administered on 03/23/19 08:53; Admin Dose 325 MG; Start 03/20/19 at 09:00; Stop 04/19/19 at 08:59 Albuterol (Proventil 0.083% (Neb)) 2.5 mg Q4H RESP THERAPY PRN HHN SHORTNESS OF BREATH; Start 03/21/19 at 06:30 Ascorbic Acid (Vitamin C) 500 mg BID PO Last administered on 03/23/19 08:52; Admin Dose 500 MG; Start 03/22/19 at 21:00; Stop 04/21/19 at 20:59 Apixaban (Eliquis) 5 mg BID PO Last administered on 03/23/19 08:52; Admin Dose 5 MG; Start 03/22/19 at 14:00 Diclofenac Sodium (Voltaren 1% Gel) 2 gm QID TP Last administered on 03/23/19at 12:20; Admin Dose 2 GM; Start 03/23/19 at 13:00 Tom Jimenes DO March 23, 2019 15:46
[2019-03-23 18:22] VITALS: BP 132/75; PULSE 85
[2019-03-23 19:49] VITALS: BP 145/84; PULSE 76; RESP 18
[2019-03-23] MEDS: ONDANSETRON 4 MG INJ IV PRN (19:56)
[2019-03-23] MEDS: MIRTAZAPINE 15 MG TAB PO SCH (21:18)
[2019-03-23] MEDS: ATORVASTATIN 10 MG TAB PO SCH (21:19)
[2019-03-23] MEDS: DIPHENHYDRAMINE 25 MG CAP PO PRN (23:15)
[2019-03-23] MEDS: HYDROmorphONE 0.5 MG/0.5 ML SYG IV PRN (23:15)
[2019-03-24 01:45] VITALS: BP 139/71; PULSE 75; RESP 18
[2019-03-24] MEDS: HYDROmorphONE 0.5 MG/0.5 ML SYG IV PRN ×3 (01:51→05:58)
[2019-03-24] MEDS: CYCLOBENZAPRINE 10 MG TAB PO PRN (04:11)
[2019-03-24] MEDS: LORAZEPAM 1 MG TAB PO PRN (05:58)
[2019-03-24] MEDS: PANTOPRAZOLE (EC) 40 MG TAB PO SCH (05:58)
[2019-03-24] MEDS: LEVOTHYROXINE 125 MCG TAB PO SCH (06:03)
[2019-03-24 08:27] VITALS: BP 110/60; PULSE 73; RESP 18
[2019-03-24] MEDS: GABAPENTIN 300 MG CAP PO SCH ×2 (09:46→20:21)
[2019-03-24] MEDS: ARIPIPRAZOLE 5 MG TAB PO SCH (09:47)
[2019-03-24] MEDS: APIXABAN 5 MG TABLET PO SCH ×2 (09:48→20:20)
[2019-03-24] MEDS: MODAFINIL 200 MG TAB PO SCH (09:49)
[2019-03-24] MEDS: FERROUS SULFATE (EC) 325 MG TAB PO SCH ×2 (09:51→20:20)
[2019-03-24] MEDS: OXYCODONE/ACETAMINOPHEN (10/325) TAB PO PRN ×3 (09:53→17:10)
[2019-03-24] MEDS: ASCORBIC ACID 500 MG TAB PO SCH ×2 (09:54→20:20)
[2019-03-24] MEDS: DOCUSATE SODIUM 100 MG CAP PO SCH ×2 (09:54→20:20)
[2019-03-24] MEDS: DICLOFENAC SODIUM 1% GEL 100 GM TUBE TP SCH ×4 (09:55→20:21)
[2019-03-24] MEDS: METHYLNALTREXONE 12 MG/0.6 ML VIAL SC SCH (09:56)
--- NOTE | 2019-03-24 12:43 | PN ---
Date/Time of Note Date/Time of Note DATE: 03/24/19 TIME: 12:42 Assessment/Plan Lines/Catheters IV Catheter Type (from Nrs): Peripheral IV Ross in Place (from Nrs): No Assessment/Plan Assessment/Plan Continue with anticoagulation. DC planning. Patient should follow-up with the undersigned after discharge from therapy prior to going home. Subjective 24 Hr Interval Summary Doing well Exam/Review of Systems Vital Signs Vitals Vital Signs Date Temp Pulse Resp B/P (MAP) Pulse Ox O2 O2 Flow FiO2 Time Delivery Rate 03/24/19 98.1 73 18 110/60 94 08:27 (77) 03/24/19 Room Air 01:45 03/22/19 2.0 11:34 Intake and Output 03/23/19 03/23/19 03/24/19 1515:00 23:00 07:00 IntakeIntake Total 600 ml 480 ml OutputOutput Total 500 ml 1575 ml 500 ml BalanceBalance 100 ml -1095 ml -500 ml Exam Free Text/Dictation Neuro intact Results Result Diagram: 03/23/19 0501 03/23/19 0501 SUNDEEP OROPEZA MD March 24, 2019 12:43
--- NOTE | 2019-03-24 12:55 | CONS ---
Assessment/Plan Assessment/Plan Hospital Course (Demo Recall) Acute pulmonary emboli/lower extremity DVT Preserved left ventricular ejection fraction Status post spinal surgery Hypertension Dyslipidemia Anxiety -Patient status post spinal surgery on this admission developed symptoms of pleuritic chest pain, shortness of breath and evidence of tachycardia and diagnosed with acute pulmonary emboli -Eliquis 10mg bid through evening, then 5mg bid -DC planning Consultation Date/Type/Reason Admit Date/Time Mar 15, 2019 at 09:57 Initial Consult Date 03/19/19 Type of Consult Cardiology Requesting Provider: SUNDEEP OROPEZA MD Date/Time of Note DATE: 03/24/19 TIME: 12:54 24 HR Interval Summary Free Text/Dictation feeling better, no cp, palp, sob Exam/Review of Systems Vital Signs Vitals Vital Signs Date Temp Pulse Resp B/P (MAP) Pulse Ox O2 O2 Flow FiO2 Time Delivery Rate 03/24/19 98.1 73 18 110/60 94 08:27 (77) 03/24/19 Room Air 01:45 03/22/19 2.0 11:34 Intake and Output 03/23/19 03/23/19 03/24/19 1515:00 23:00 07:00 IntakeIntake Total 600 ml 480 ml OutputOutput Total 500 ml 1575 ml 500 ml BalanceBalance 100 ml -1095 ml -500 ml Exam Constitutional: alert, oriented (nad) Head: normocephalic Respiratory: other (course bs, no wheeze) Cardiovascular: regular rate and rhythm (s1s2) Gastrointestinal: soft, non-tender, bowel sounds Extremities: other (trace edema) Labs Result Diagram: 03/23/19 0501 03/23/19 0501 Medications Medications Current Medications Aripiprazole (Abilify) 5 mg DAILY PO Last administered on 03/24/19at 09:47; Admin Dose 5 MG; Start 03/16/19 at 09:00 Gabapentin (Neurontin) 1,800 mg QHS PO Last administered on 03/23/19at 21:18; Admin Dose 1,800 MG; Start 03/15/19 at 21:00 Gabapentin (Neurontin) 600 mg QAM PO Last administered on 03/24/19at 09:46; Admin Dose 600 MG; Start 03/16/19 at 09:00 Levothyroxine Sodium (Synthroid) 125 mcg BEFORE BREAKFAST PO Last administered on 03/24/19 06:03; Admin Dose 125 MCG; Start 03/16/19 at 07:00 Mirtazapine (Remeron) 30 mg HS PO Last administered on 03/23/19 21:18; Admin Dose 30 MG; Start 03/15/19 at 21:00 Pantoprazole (Protonix Tab) 40 mg DAILY@06 PO Last administered on 03/24/19 05:58; Admin Dose 40 MG; Start 03/16/19 at 06:00 Zolpidem Tartrate (Ambien) 5 mg HS PRN PO INSOMNIA Last administered on 03/21/19 00:28; Admin Dose 5 MG; Start 03/15/19 at 23:00 Atorvastatin Calcium (Lipitor) 10 mg DAILY@21 PO Last administered on 03/23/19 21:19; Admin Dose 10 MG; Start 03/15/19 at 23:00 Oxycodone/ Acetaminophen (Endocet (10/ 325)) 1 tab Q4H PRN PO .PAIN 5-10 Last administered on 03/24/19 09:53; Admin Dose 1 TAB; Start 03/16/19 at 14:00 Oxycodone/ Acetaminophen (Endocet (10/ 325)) 2 tab Q4H PRN PO .PAIN 6-10 Last administered on 03/24/19 12:35; Admin Dose 1 TAB; Start 03/16/19 at 14:00 Hydromorphone HCl (Dilaudid) 0.2 mg Q1H PRN IV .BREAKTHROUGH PAIN Last administered on 03/24/19 05:58; Admin Dose 0.2 MG; Start 03/16/19 at 14:00 Ondansetron HCl (Zofran Inj) 4 mg Q6H PRN IV NAUSEA/VOMITING Last administered on 03/23/19 19:56; Admin Dose 4 MG; Start 03/16/19 at 14:00 Bisacodyl (Dulcolax Supp) 10 mg DAILY PRN [place] .CONSTIPATION Last administered on 03/21/19 13:13; Admin Dose 10 MG; Start 03/16/19 at 14:00 Docusate Sodium (Colace) 100 mg BID PO Last administered on 03/24/19 09:54; Adm in Dose 100 MG; Start 03/16/19 at 21:00 Al Hydrox/Mg Hydrox/Simethicone (Mag-Al Plus) 15 ml Q6H PRN PO .CONSTIPATION/DYSPEPSIA Last administered on 03/20/19 09:39; Admin Dose 15 ML; Start 03/16/19 at 14:00 Acetaminophen (Tylenol Tab) 650 mg Q4H PRN PO TORRES OR TEMP GREATER THAN 101.3F; Start 03/16/19 at 14:00 Cyclobenzaprine HCl (Flexeril) 5 mg TID PRN PO .MUSCLE SPASM Last administered on 03/24/19 04:11; Admin Dose 5 MG; Start 03/16/19 at 14:00 Phenol (Cepastat Lozenge) 1 lozenge PRN PRN [place] .SORE THROAT Last administered on 03/21/19 03:41; Admin Dose 1 LOZENGE; Start 03/16/19 at 14:00 Diphenhydramine HCl (Benadryl) 25 mg Q6H PRN PO .ITCHING Last administered on 03/23/19 23:15; Admin Dose 25 MG; Start 03/16/19 at 14:00 Diphenhydramine HCl (Benadryl) 25 mg Q6H PRN IV .ITCHING Last administered on 03/21/19 20:34; Admin Dose 25 MG; Start 03/16/19 at 14:00 Naloxone HCl (Narcan) 0.2 mg Q2M PRN IV .RR 8 BREATHS/MIN OR LESS; Start 03/16/19 at 14:00 Miscellaneous Information 1. Hold EMPLOYEE BENEFITS ADMINISTRATOR at 1,000... EMPLOYEE BENEFITS ADMINISTRATOR IV ; Start 03/16/19 at 14:00 Testosterone (Androgel) 5 gm DAILY TOP Last administered on 03/23/19 18:30; Admin Dose 5 GM; Start 03/17/19 at 09:00 Hydromorphone HCl (Dilaudid EMPLOYEE BENEFITS ADMINISTRATOR) EMPLOYEE BENEFITS ADMINISTRATOR to be started in PACU Q4PCA IV Last administered on 03/17/19 23:22; Admin Dose 6 MG; Start 03/16/19 at 23:00 Modafinil (Provigil) 400 mg DAILY PO Last administered on 03/24/19 09:49; Admin Dose 400 MG; Start 03/17/19 at 12:00 Lorazepam (Ativan) 2 mg TID PRN PO ANXIETY Last administered on 03/24/19 05:58; Admin Dose 2 MG; Start 03/19/19 at 12:30 Methylnaltrexone [place] (Relistor) 12 mg DAILY SC Last administered on 03/24/19 09:56; Admin Dose 12 MG; Start 03/20/19 at 09:00 Ferrous Sulfate (Ferrous Sulfate (Ec)) 325 mg BID PO Last administered on 03/24/19 09:51; Admin Dose 325 MG; Start 03/20/19 at 09:00; Stop 04/19/19 at 08:59 Albuterol (Proventil 0.083% (Neb)) 2.5 mg Q4H RESP THERAPY PRN HHN SHORTNESS OF BREATH; Start 03/21/19 at 06:30 Ascorbic Acid (Vitamin C) 500 mg BID PO Last administered on 03/24/19 09:54; Admin Dose 500 MG; Start 03/22/19 at 21:00; Stop 04/21/19 at 20:59 Diclofenac Sodium (Voltaren 1% Gel) 2 gm QID TP Last administered on 03/24/19 12:35; Admin Dose 2 GM; Start 03/23/19 at 13:00 Apixaban (Eliquis) 10 mg BID PO Last administered on 03/24/19 09:48; Admin Dose 10 MG; Start 03/23/19 at 21:00; Stop 03/30/19 at 20:59 Apixaban (Eliquis) 5 mg BID PO ; Start 03/31/19 at 07:00; Stop 06/29/19 at 06:59; Status Tom Dorman DO March 24, 2019 12:55
--- NOTE | 2019-03-24 13:03 | PN ---
Date/Time of Note Date/Time of Note DATE: 03/24/19 TIME: 13:00 Assessment/Plan VTE Prophylaxis Risk score (from Ns)>0 risk: 5 SCD applied (from Ns): Yes Pharmacological prophylaxis: apixaban Pharm contraindication: low risk/ambulating Lines/Catheters [facility]from [facility] Peripheral IV Urinary Cath still in place: No Assessment/Plan Problems: (1) S/P lumbar and lumbosacral fusion by anterior technique Onset Date: ~ 03/15/2019 Status: Acute Comment: Progressing nicely without further issue. Reportedly the plan is for him to go home tomorrow. Physical therapy will start shortly thereafter. (2) S/P lumbar fusion Onset Date: ~ 03/16/2019 Status: Acute Comment: As above. (3) Pulmonary embolism during current hospitalization Status: Acute Comment: On full anticoagulant therapy with assistance and guidance from Dr. Juancho colindres. Continue treatment with 10 mg twice daily for 7 days then transition over to 5 mg twice daily. (4) DVT (deep venous thrombosis) Status: Acute Comment: as above. Plan is for 6 months of anticoagulation Qualifiers: DVT location: lower extremity Chronicity: acute Laterality: left (5) Acquired hypothyroidism Status: Chronic Comment: Stable on replacement therapy (6) Hyperlipidemia Status: Chronic Comment: Adequate control Qualifiers: Hyperlipidemia type: pure hypercholesterolemia Qualified Codes: E78.00 - Pure hypercholesterolemia, unspecified (7) Testicular hypofunction Status: Chronic Comment: Continue with replacement therapy now the fully anticoagulated (8) Obstructive sleep apnea Status: Chronic Comment: Nocturnal BiPAP (9) Chronic pain syndrome Status: Chronic Comment: Adequately controlled at present (10) Dysthymia Status: Chronic Comment: Stable on medical therapy. Result Diagram: 03/23/19 0501 03/23/19 0501 Subjective 24 Hr Interval Summary Free Text/Dictation Patient reports he is doing well and without complaints. Constitutional: no complaints Respiratory: no complaints (Cough no pleurisy no shortness of breath) Cardiovascular: no complaints Gastrointestinal: no complaints Genitourinary: no complaints Exam/Review of Systems Exam Vitals Vital Signs Date Temp Pulse Resp B/P (MAP) Pulse Ox O2 O2 Flow FiO2 Time Delivery Rate 03/24/19 98.1 73 18 110/60 94 08:27 (77) 03/24/19 Room Air 01:45 03/22/19 2.0 11:34 Intake and Output 03/23/19 03/23/19 03/24/19 1515:00 23:00 07:00 IntakeIntake Total 600 ml 480 ml OutputOutput Total 500 ml 1575 ml 500 ml BalanceBalance 100 ml -1095 ml -500 ml Constitutional: alert, oriented Respiratory: clear to auscultation, normal air movement Cardiovascular: regular rate and rhythm, nl pulses Medications Medication Current Medications Aripiprazole (Abilify) 5 mg DAILY PO Last administered on 03/24/19 09:47; Admin Dose 5 MG; Start 03/16/19 at 09:00 Gabapentin (Neurontin) 1,800 mg QHS PO Last administered on 03/23/19 21:18; Admin Dose 1,800 MG; Start 03/15/19 at 21:00 Gabapentin (Neurontin) 600 mg QAM PO Last administered on 03/24/19 09:46; Admin Dose 600 MG; Start 03/16/19 at 09:00 Levothyroxine Sodium (Synthroid) 125 mcg BEFORE BREAKFAST PO Last administered on 03/24/19 06:03; Admin Dose 125 MCG; Start 03/16/19 at 07:00 Mirtazapine (Remeron) 30 mg HS PO Last administered on 03/23/19 21:18; Admin Dose 30 MG; Start 03/15/19 at 21:00 Pantoprazole (Protonix Tab) 40 mg DAILY@06 PO Last administered on 03/24/19 05:58; Admin Dose 40 MG; Start 03/16/19 at 06:00 Zolpidem Tartrate (Ambien) 5 mg HS PRN PO INSOMNIA Last administered on 03/21/19 00:28; Admin Dose 5 MG; Start 03/15/19 at 23:00 Atorvastatin Calcium (Lipitor) 10 mg DAILY@21 PO Last administered on 03/23/19 21:19; Admin Dose 10 MG; Start 03/15/19 at 23:00 Oxycodone/ Acetaminophen (Endocet (10/ 325)) 1 tab Q4H PRN PO .PAIN 5-10 Last administered on 03/24/19 09:53; Admin Dose 1 TAB; Start 03/16/19 at 14:00 Oxycodone/ Acetaminophen (Endocet (10/ 325)) 2 tab Q4H PRN PO .PAIN 6-10 Last administered on 03/24/19 12:35; Admin Dose 1 TAB; Start 03/16/19 at 14:00 Hydromorphone HCl (Dilaudid) 0.2 mg Q1H PRN IV .BREAKTHROUGH PAIN Last administered on 03/24/19 05:58; Admin Dose 0.2 MG; Start 03/16/19 at 14:00 Ondansetron HCl (Zofran Inj) 4 mg Q6H PRN IV NAUSEA/VOMITING Last administered on 03/23/19 19:56; Admin Dose 4 MG; Start 03/16/19 at 14:00 Bisacodyl (Dulcolax Supp) 10 mg DAILY PRN [place] .CONSTIPATION Last administered on 03/21/19 13:13; Admin Dose 10 MG; Start 03/16/19 at 14:00 Docusate Sodium (Colace) 100 mg BID PO Last administered on 03/24/19 09:54; Admin Dose 100 MG; Start 03/16/19 at 21:00 Al Hydrox/Mg Hydrox/Simethicone (Mag-Al Plus) 15 ml Q6H PRN PO .CONSTIPATION/DYSPEPSIA Last administered on 03/20/19 09:39; Admin Dose 15 ML; Start 03/16/19 at 14:00 Acetaminophen (Tylenol Tab) 650 mg Q4H PRN PO TORRES OR TEMP GREATER THAN 101.3F; Start 03/16/19 at 14:00 Cyclobenzaprine HCl (Flexeril) 5 mg TID PRN PO .MUSCLE SPASM Last administered on 03/24/19 04:11; Admin Dose 5 MG; Start 03/16/19 at 14:00 Phenol (Cepastat Lozenge) 1 lozenge PRN PRN [place] .SORE THROAT Last administered on 03/21/19 03:41; Admin Dose 1 LOZENGE; Start 03/16/19 at 14:00 Diphenhydramine HCl (Benadryl) 25 mg Q6H PRN PO .ITCHING Last administered on 03/23/19 23:15; Admin Dose 25 MG; Start 03/16/19 at 14:00 Diphenhydramine HCl (Benadryl) 25 mg Q6H PRN IV .ITCHING Last administered on 03/21/19 20:34; Admin Dose 25 MG; Start 03/16/19 at 14:00 Naloxone HCl (Narcan) 0.2 mg Q2M PRN IV .RR 8 BREATHS/MIN OR LESS; Start 03/16/19 at 14:00 Miscellaneous Information 1. Hold FUNDRAISING OFFICER at 1,000... FUNDRAISING OFFICER IV ; Start 03/16/19 at 14:00 Testosterone (Androgel) 5 gm DAILY TOP Last administered on 03/23/19 18:30; Admin Dose 5 GM; Start 03/17/19 at 09:00 Hydromorphone HCl (Dilaudid FUNDRAISING OFFICER) FUNDRAISING OFFICER to be started in PACU Q4PCA IV Last administered on 03/17/19 23:22; Admin Dose 6 MG; Start 03/16/19 at 23:00 Modafinil (Provigil) 400 mg DAILY PO Last administered on 03/24/19 09:49; Admin Dose 400 MG; Start 03/17/19 at 12:00 Lorazepam (Ativan) 2 mg TID PRN PO ANXIETY Last administered on 03/24/19 05:58; Admin Dose 2 MG; Start 03/19/19 at 12:30 Methylnaltrexone [place] (Relistor) 12 mg DAILY SC Last administered on 03/24/19 09:56; Admin Dose 12 MG; Start 03/20/19 at 09:00 Ferrous Sulfate (Ferrous Sulfate (Ec)) 325 mg BID PO Last administered on 03/24/19 09:51; Admin Dose 325 MG; Start 03/20/19 at 09:00; Stop 04/19/19 at 08:59 Albuterol (Proventil 0.083% (Neb)) 2.5 mg Q4H RESP THERAPY PRN HHN SHORTNESS OF BREATH; Start 03/21/19 at 06:30 Ascorbic Acid (Vitamin C) 500 mg BID PO Last administered on 03/24/19 09:54; Admin Dose 500 MG; Start 03/22/19 at 21:00; Stop 04/21/19 at 20:59 Diclofenac Sodium (Voltaren 1% Gel) 2 gm QID TP Last administered on 03/24/19 12:35; Admin Dose 2 GM; Start 03/23/19 at 13:00 Apixaban (Eliquis) 10 mg BID PO Last administered on 03/24/19at 09:48; Admin Dose 10 MG; Start 03/23/19 at 21:00; Stop 03/30/19 at 20:59 Apixaban (Eliquis) 5 mg BID PO ; Start 03/31/19 at 07:00; Stop 06/29/19 at 06:59 ; Status JAUGAR MOORE MD March 24, 2019 13:03
[2019-03-24 14:00] VITALS: BP 128/66; PULSE 78; RESP 18
[2019-03-24] MEDS: TESTOSTERONE 1% GEL 5 GM PACKET TOP SCH (16:54)
[2019-03-24] MEDS: MIRTAZAPINE 15 MG TAB PO SCH (20:21)
[2019-03-24] MEDS: ATORVASTATIN 10 MG TAB PO SCH (20:21)
[2019-03-24 20:30] VITALS: BP 124/59; PULSE 88; RESP 18
[2019-03-25] MEDS: OXYCODONE/ACETAMINOPHEN (10/325) TAB PO PRN ×3 (00:58→11:07)
[2019-03-25 02:35] VITALS: BP 115/61; PULSE 72; RESP 19
[2019-03-25] MEDS: LORAZEPAM 1 MG TAB PO PRN (03:55)
[2019-03-25] MEDS: LEVOTHYROXINE 125 MCG TAB PO SCH (06:52)
[2019-03-25] MEDS: PANTOPRAZOLE (EC) 40 MG TAB PO SCH (06:52)
--- NOTE | 2019-03-25 07:55 | DS ---
Date/Time of Note Date/Time of Note DATE: 03/25/19 TIME: 07:52 Discharge Summary Admission/Discharge Info Admit Date/Time Mar 15, 2019 at 09:57 Discharge Date/Time march 25 Discharge Diagnosis Lumbar fusion Pulmonary emboli Patient Condition: Good Procedures Lumbar fusion Hospital Course Patient was admitted to the [facility] after undergoing lumbar fusion fusion. On postoperative day [address] angiogram was obtained revealing a pulmonary emboli. He was also diagnosed with a DVT based on an ultrasound. He was doing well from an orthopedic standpoint from his surgery but given the emboli he required a longer hospitalization. He was started on a heparin drip and transferred to the ICU where he remained for a few days. He was subsequently transferred back to the [facility]. He did well with physical therapy and by March 25 deemed stable for discharge with follow-up arranged with the undersigned. He will be discharged to home in [place] and will follow-up with the undersigned in 2 weeks. He has received his postoperative pain medications. We will start Eliquis 5 mg twice a day tomorrow. Home Meds Reported Medications Testosterone* (Androgel*) 1.62%-75gm Gel.transportation attendant, 60.75 MG TD DAILY, EA 03/15/19 Docusate Sodium* (Dok*) 100 Mg Tablet, 100 MG PO BID, #60 CAP 03/15/19 Oxycodone HCl/Acetaminophen (Oxycodone-Acetaminophen 10-325) 1 Each Tablet, 1 EACH PO EVERY 4-6 HOURS PRN for PAIN LEVEL 1-5, TAB 03/15/19 Mirtazapine* (Mirtazapine*) 30 Mg Tablet, 30 MG PO HS, TAB 03/15/19 Gabapentin* (Gabapentin*) 600 Mg Tablet, 1800 MG PO QHS, #90 TAB 03/15/19 Gabapentin* (Gabapentin*) 600 Mg Tablet, 600 MG PO QAM, #60 TAB 03/15/19 Simvastatin* (Zocor*) 20 Mg Tablet, 20 MG PO QHS, #30 TAB 03/15/19 Dexlansoprazole (Dexilant) 60 Mg Cap.mp, 60 MG PO DAILY, #30 CAP 03/15/19 Eszopiclone (Lunesta) 2 Mg Tab, 2 MG PO HS PRN for INSOMNIA, TAB 03/15/19 Aripiprazole* (Abilify*) 5 Mg Tab, 5 MG PO DAILY, #30 TAB 03/15/19 Levothyroxine Sodium* (Levoxyl*) 125 Mcg Tablet, 125 MCG PO BEFORE BREAKFAST, #30 TAB 03/15/19 Modafinil* (Provigil*) 100 Mg Tablet, 400 MG PO QAM, TAB 03/15/19 Lorazepam* (Lorazepam*) 1 Mg Tablet, 1 MG PO TID PRN for ANXIETY, #30 TAB 03/15/19 Primary Care Provider Not On Staff Doctor SUNDEEP OROPEZA MD March 25, 2019 07:55
[2019-03-25 08:13] VITALS: BP 122/69; PULSE 67; RESP 18
[2019-03-25] MEDS: METHYLNALTREXONE 12 MG/0.6 ML VIAL SC SCH (09:00)
[2019-03-25] MEDS: DOCUSATE SODIUM 100 MG CAP PO SCH (09:40)
[2019-03-25] MEDS: ARIPIPRAZOLE 5 MG TAB PO SCH (09:40)
[2019-03-25] MEDS: FERROUS SULFATE (EC) 325 MG TAB PO SCH (09:40)
[2019-03-25] MEDS: GABAPENTIN 300 MG CAP PO SCH (09:40)
[2019-03-25] MEDS: APIXABAN 5 MG TABLET PO SCH (09:41)
[2019-03-25] MEDS: ASCORBIC ACID 500 MG TAB PO SCH (09:47)
[2019-03-25] MEDS: DICLOFENAC SODIUM 1% GEL 100 GM TUBE TP SCH (11:06)
[2019-03-25] MEDS: MODAFINIL 200 MG TAB PO SCH (11:07)
[2019-03-25] MEDS: TESTOSTERONE 1% GEL 5 GM PACKET TOP SCH (11:08)
--- NOTE | 2019-03-25 12:37 | CONS ---
Assessment/Plan Assessment/Plan Hospital Course (Demo Recall) Acute pulmonary emboli/lower extremity DVT Preserved left ventricular ejection fraction Status post spinal surgery Hypertension Dyslipidemia Anxiety -Patient status post spinal surgery on this admission developed symptoms of pleuritic chest pain, shortness of breath and evidence of tachycardia and diagnosed with acute pulmonary emboli -Eliquis 10mg bid through evening, then 5mg bid -Did speak to nursing staff regarding confirmation of insurance approval of Eliquis, they requested a prescription, I did write for Eliquis 5 mg twice daily and gave it to the nurse. -DC planning Consultation Date/Type/Reason Admit Date/Time Mar 15, 2019 at 09:57 Initial Consult Date 03/19/19 Type of Consult Cardiology Requesting Provider: SUNDEEP OROPEZA MD Date/Time of Note DATE: 03/25/19 TIME: 12:36 24 HR Interval Summary Free Text/Dictation Denies chest pain at rest or with exertion, shortness of breath is continuing to improve. Exam/Review of Systems Vital Signs Vitals Vital Signs Date Temp Pulse Resp B/P (MAP) Pulse Ox O2 O2 Flow FiO2 Time Delivery Rate 03/25/19 97.8 67 18 122/69 95 Room Air 08:13 (86) 03/22/19 2.0 11:34 Intake and Output 03/24/19 03/24/19 03/25/19 1515:00 23:00 07:00 IntakeIntake Total 1240 ml 300 ml BalanceBalance 1240 ml 300 ml Exam Constitutional: alert, oriented (No apparent distress) Respiratory: other (Coarse breath sounds bilaterally, no wheezing) Cardiovascular: regular rate and rhythm (S1-S2 heard) Gastrointestinal: soft, non-tender, bowel sounds Extremities: other (No significant edema) Labs Result Diagram: 03/23/19 0501 03/23/19 0501 Medications Medications Current Medications Aripiprazole (Abilify) 5 mg DAILY PO Last administered on 03/25/19at 09:40; Admin Dose 5 MG; Start 03/16/19 at 09:00 Gabapentin (Neurontin) 1,800 mg QHS PO Last administered on 03/24/19at 20:21; Admin Dose 1,800 MG; Start 03/15/19 at 21:00 Gabapentin (Neurontin) 600 mg QAM PO Last administered on 03/25/19at 09:40; Admin Dose 600 MG; Start 03/16/19 at 09:00 Levothyroxine Sodium (Synthroid) 125 mcg BEFORE BREAKFAST PO Last administered on 03/25/19 06:52; Admin Dose 125 MCG; Start 03/16/19 at 07:00 Mirtazapine (Remeron) 30 mg HS PO Last administered on 03/24/19 20:21; Admin Dose 30 MG; Start 03/15/19 at 21:00 Pantoprazole (Protonix Tab) 40 mg DAILY@06 PO Last administered on 03/25/19 06:52; Admin Dose 40 MG; Start 03/16/19 at 06:00 Zolpidem Tartrate (Ambien) 5 mg HS PRN PO INSOMNIA Last administered on 03/21/19 00:28; Admin Dose 5 MG; Start 03/15/19 at 23:00 Atorvastatin Calcium (Lipitor) 10 mg DAILY@21 PO Last administered on 03/24/19 20:21; Admin Dose 10 MG; Start 03/15/19 at 23:00 Oxycodone/ Acetaminophen (Endocet (10/ 325)) 1 tab Q4H PRN PO .PAIN 5-10 Last administered on 03/24/19 09:53; Admin Dose 1 TAB; Start 03/16/19 at 14:00 Oxycodone/ Acetaminophen (Endocet (10/ 325)) 2 tab Q4H PRN PO .PAIN 6-10 Last administered on 03/25/19 11:07; Admin Dose 2 TAB; Start 03/16/19 at 14:00 Hydromorphone HCl (Dilaudid) 0.2 mg Q1H PRN IV .BREAKTHROUGH PAIN Last administered on 03/24/19 05:58; Admin Dose 0.2 MG; Start 03/16/19 at 14:00 Ondansetron HCl (Zofran Inj) 4 mg Q6H PRN IV NAUSEA/VOMITING Last administered on 03/23/19 19:56; Admin Dose 4 MG; Start 03/16/19 at 14:00 Bisacodyl (Dulcolax Supp) 10 mg DAILY PRN [place] .CONSTIPATION Last administered on 03/21/19 13:13; Admin Dose 10 MG; Start 03/16/19 at 14:00 Docusate Sodium (Colace) 100 mg BID PO Last administered on 03/25/19 09:40; Admin Dose 100 MG; Start 03/16/19 at 21:00 Al Hydrox/Mg Hydrox/Simethicone (Mag-Al Plus) 15 ml Q6H PRN PO .CONSTI PATION/DYSPEPSIA Last administered on 03/20/19 09:39; Admin Dose 15 ML; Start 03/16/19 at 14:00 Acetaminophen (Tylenol Tab) 650 mg Q4H PRN PO TORRES OR TEMP GREATER THAN 101.3F; Start 03/16/19 at 14:00 Cyclobenzaprine HCl (Flexeril) 5 mg TID PRN PO .MUSCLE SPASM Last administered on 03/24/19 04:11; Admin Dose 5 MG; Start 03/16/19 at 14:00 Phenol (Cepastat Lozenge) 1 lozenge PRN PRN [place] .SORE THROAT Last administered on 03/21/19 03:41; Admin Dose 1 LOZENGE; Start 03/16/19 at 14:00 Diphenhydramine HCl (Benadryl) 25 mg Q6H PRN PO .ITCHING Last administered on 03/23/19 23:15; Admin Dose 25 MG; Start 03/16/19 at 14:00 Diphenhydramine HCl (Benadryl) 25 mg Q6H PRN IV .ITCHING Last administered on 20:34; Admin Dose 25 MG; Start 03/16/19 at 14:00 Naloxone HCl (Narcan) 0.2 mg Q2M PRN IV .RR 8 BREATHS/MIN OR LESS; Start 03/16/19 at 14:00 Miscellaneous Information 1. Hold MIXING ROLL OPERATOR at 1,000... MIXING ROLL OPERATOR IV ; Start 03/16/19 at 14:00 Testosterone (Androgel) 5 gm DAILY TOP Last administered on 03/25/19 11:08; Admin Dose 5 GM; Start 03/17/19 at 09:00 Hydromorphone HCl (Dilaudid MIXING ROLL OPERATOR) MIXING ROLL OPERATOR to be started in PACU Q4PCA IV Last administered on 03/17/19 23:22; Admin Dose 6 MG; Start 03/16/19 at 23:00 Modafinil (Provigil) 400 mg DAILY PO Last administered on 03/25/19 11:07; Admin Dose 400 MG; Start 03/17/19 at 12:00 Lorazepam (Ativan) 2 mg TID PRN PO ANXIETY Last administered on 03/25/19 03:55; Admin Dose 2 MG; Start 03/19/19 at 12:30 Methylnaltrexone [place] (Relistor) 12 mg DAILY SC Last administered on 03/24/19 09:56; Admin Dose 12 MG; Start 03/20/19 at 09:00 Ferrous Sulfate (Ferrous Sulfate (Ec)) 325 mg BID PO Last administered on 03/25/19 09:40; Admin Dose 325 MG; Start 03/20/19 at 09:00; Stop 04/19/19 at 08:59 Albuterol (Proventil 0.083% (Neb)) 2.5 mg Q4H RESP THERAPY PRN HHN SHORTNESS OF BREATH; Start 03/21/19 at 06:30 Ascorbic Acid (Vitamin C) 500 mg BID PO Last administered on 03/25/19 09:47; Admin Dose 500 MG; Start 03/22/19 at 21:00; Stop 04/21/19 at 20:59 Diclofenac Sodium (Voltaren 1% Gel) 2 gm QID TP Last administered on 03/25/19 11:06; Admin Dose 2 GM; Start 03/23/19 at 13:00 Apixaban (Eliquis) 10 mg BID PO Last administered on 03/25/19 09:41; Admin Dose 10 MG; Start 03/23/19 at 21:00; Stop 03/30/19 at 20:59 Apixaban (Eliquis) 5 mg BID PO ; Start 03/31/19 at 07:00; Stop 06/29/19 at 06:59 Tom Jimenes DO March 25, 2019 12:37
[2019-03-25] MEDS ORDERED: APIX5TAB PO (12:47)
[2019-03-25] MEDS ORDERED: METH12DI SC (12:47)
[2019-03-25] MEDS ORDERED: FER325 PO (12:47)
--- NOTE | 2019-03-25 13:02 | CONS ---
Assessment/Plan Assessment/Plan Problems: (1) S/P lumbar fusion Onset Date: ~ 03/16/2019 Status: Acute Comment: Has done quite nicely with rehab and is now stable for discharge home. (2) S/P lumbar and lumbosacral fusion by anterior technique Onset Date: ~ 03/15/2019 Status: Acute Comment: As above. (3) Pulmonary embolism during current hospitalization Status: Acute Comment: Completing 7 days of high-dose Eliquis at 10 mg twice daily and will transition to 5 mg twice daily for a 6-month course of therapy. Prescriptions have been transmitted electronically to his pharmacy. (4) DVT (deep venous thrombosis) Status: Acute Comment: As above Qualifiers: DVT location: lower extremity Chronicity: acute Laterality: left (5) Obstructive sleep apnea Status: Chronic Comment: Adequate control (6) Hyperlipidemia Status: Chronic Comment: Continue with statin therapy Qualifiers: Hyperlipidemia type: pure hypercholesterolemia Qualified Codes: E78.00 - Pure hypercholesterolemia, unspecified (7) Acquired hypothyroidism Status: Chronic Comment: On replacement therapy Consultation Date/Type/Reason Admit Date/Time Mar 15, 2019 at 09:57 Initial Consult Date 03/15/19 Type of Consult Internal medicine Reason for Consultation Postop follow-up after anterior and posterior spine surgery complicated by postoperative DVT and pulmonary embolism Requesting Provider: SUNDEEP OROPEZA MD Date/Time of Note DATE: 03/25/19 TIME: 13:00 24 HR Interval Summary Free Text/Dictation Patient is doing well at this time without complaints of fevers chills sweats shortness of breath etc. Constitutional: no complaints Detailed Summary Respiratory: no complaints Cardiovascular: no complaints Gastrointestinal: no complaints Exam/Review of Systems Exam Vitals Vital Signs Date Temp Pulse Resp B/P (MAP) Pulse Ox O2 O2 Flow FiO2 Time Delivery Rate 03/25/19 97.8 67 18 122/69 95 Room Air 08:13 (86) 03/22/19 2.0 11:34 Intake and Output 03/24/19 03/24/19 03/25/19 1515:00 23:00 07:00 IntakeIntake Total 1240 ml 300 ml BalanceBalance 1240 ml 300 ml Constitutional: alert, oriented Cardiovascular: regular rate and rhythm, nl pulses Gastrointestinal: soft, nl liver, spleen, non-tender Results Result Diagram: 03/23/19 0501 03/23/19 0501 Medications Medication Current Medications Aripiprazole (Abilify) 5 mg DAILY PO Last administered on 03/25/19 09:40; Admin Dose 5 MG; Start 03/16/19 at 09:00 Gabapentin (Neurontin) 1,800 mg QHS PO Last administered on 03/24/19 20:21; Admin Dose 1,800 MG; Start 03/15/19 at 21:00 Gabapentin (Neurontin) 600 mg QAM PO Last administered on 03/25/19 09:40; Admin Dose 600 MG; Start 03/16/19 at 09:00 Levothyroxine Sodium (Synthroid) 125 mcg BEFORE BREAKFAST PO Last administered on 03/25/19 06:52; Admin Dose 125 MCG; Start 03/16/19 at 07:00 Mirtazapine (Remeron) 30 mg HS PO Last administered on 03/24/19 20:21; Admin Dose 30 MG; Start 03/15/19 at 21:00 Pantoprazole (Protonix Tab) 40 mg DAILY@06 PO Last administered on 03/25/19 06:52; Admin Dose 40 MG; Start 03/16/19 at 06:00 Zolpidem Tartrate (Ambien) 5 mg HS PRN PO INSOMNIA Last administered on 03/21/19 00:28; Admin Dose 5 MG; Start 03/15/19 at 23:00 Atorvastatin Calcium (Lipitor) 10 mg DAILY@21 PO Last administered on 03/24/19 20:21; Admin Dose 10 MG; Start 03/15/19 at 23:00 Oxycodone/ Acetaminophen (Endocet (10/ 325)) 1 tab Q4H PRN PO .PAIN 5-10 Last administered on 03/24/19 09:53; Admin Dose 1 TAB; Start 03/16/19 at 14:00 Oxycodone/ Acetaminophen (Endocet (10/ 325)) 2 tab Q4H PRN PO .PAIN 6-10 Last administered on 03/25/19 11:07; Admin Dose 2 TAB; Start 03/16/19 at 14:00 Hydromorphone HCl (Dilaudid) 0.2 mg Q1H PRN IV .BREAKTHROUGH PAIN Last admini stered on 03/24/19 05:58; Admin Dose 0.2 MG; Start 03/16/19 at 14:00 Ondansetron HCl (Zofran Inj) 4 mg Q6H PRN IV NAUSEA/VOMITING Last administered on 03/23/19 19:56; Admin Dose 4 MG; Start 03/16/19 at 14:00 Bisacodyl (Dulcolax Supp) 10 mg DAILY PRN [place] .CONSTIPATION Last administered on 03/21/19 13:13; Admin Dose 10 MG; Start 03/16/19 at 14:00 Docusate Sodium (Colace) 100 mg BID PO Last administered on 03/25/19 09:40; Admin Dose 100 MG; Start 03/16/19 at 21:00 Al Hydrox/Mg Hydrox/Simethicone (Mag-Al Plus) 15 ml Q6H PRN PO .CONSTIPATION/DYSPEPSIA Last administered on 03/20/19 09:39; Admin Dose 15 ML; Start 03/16/19 at 14:00 Acetaminophen (Tylenol Tab) 650 mg Q4H PRN PO TORRES OR TEMP GREATER THAN 101.3F; Start 03/16/19 at 14:00 Cyclobenzaprine HCl (Flexeril) 5 mg TID PRN PO .MUSCLE SPASM Last administered on 03/24/19 04:11; Admin Dose 5 MG; Start 03/16/19 at 14:00 Phenol (Cepastat Lozenge) 1 lozenge PRN PRN [place] .SORE THROAT Last administered on 03/21/19 03:41; Admin Dose 1 LOZENGE; Start 03/16/19 at 14:00 Diphenhydramine HCl (Benadryl) 25 mg Q6H PRN PO .ITCHING Last administered on 03/23/19 23:15; Admin Dose 25 MG; Start 03/16/19 at 14:00 Diphenhydramine HCl (Benadryl) 25 mg Q6H PRN IV .ITCHING Last administered on 03/21/19 20:34; Admin Dose 25 MG; Start 03/16/19 at 14:00 Naloxone HCl (Narcan) 0.2 mg Q2M PRN IV .RR 8 BREATHS/MIN OR LESS; Start 03/16/19 at 14:00 Miscellaneous Information 1. Hold TRIM ATTACHER at 1,000... TRIM ATTACHER IV ; Start 03/16/19 at 14:00 Testosterone (Androgel) 5 gm DAILY TOP Last administered on 03/25/19 11:08; Admin Dose 5 GM; Start 03/17/19 at 09:00 Hydromorphone HCl (Dilaudid TRIM ATTACHER) TRIM ATTACHER to be started in PACU Q4PCA IV Last administered on 03/17/19 23:22; Admin Dose 6 MG; Start 03/16/19 at 23:00 Modafinil (Provigil) 400 mg DAILY PO Last administered on 03/25/19 11:07; Admin Dose 400 MG; Start 03/17/19 at 12:00 Lorazepam (Ativan) 2 mg TID PRN PO ANXIETY Last administered on 03/25/19 03:55; Admin Dose 2 MG; Start 03/19/19 at 12:30 Methylnaltrexone [place] (Relistor) 12 mg DAILY SC Last administered on 03/24/19 09:56; Admin Dose 12 MG; Start 03/20/19 at 09:00 Ferrous Sulfate (Ferrous Sulfate (Ec)) 325 mg BID PO Last administered on 03/25/19 09:40; Admin Dose 325 MG; Start 03/20/19 at 09:00; Stop 04/19/19 at 08:59 Albuterol (Proventil 0.083% (Neb)) 2.5 mg Q4H RESP THERAPY PRN HHN SHORTNESS OF BREATH; Start 03/21/19 at 06:30 Ascorbic Acid (Vitamin C) 500 mg BID PO Last administered on 03/25/19 09:47; Admin Dose 500 MG; Start 03/22/19 at 21:00; Stop 04/21/19 at 20:59 Diclofenac Sodium (Voltaren 1% Gel) 2 gm QID TP Last administered on 03/25/19 11:06; Admin Dose 2 GM; Start 03/23/19 at 13:00 Apixaban (Eliquis) 10 mg BID PO Last administered on 03/25/19 09:41; Admin Dose 10 MG; Start 03/23/19 at 21:00; Stop 03/30/19 at 20:59 Apixaban (Eliquis) 5 mg BID PO ; Start 03/31/19 at 07:00; Stop 06/29/19 at 06:59 JAGUAR GRAVES MD March 25, 2019 13:02
[2019-03-31] MEDS ORDERED: APIXABAN 5 MG TABLET PO SCH (07:00)
== END 2019-03-25 13:55 | disposition home or self-care (01) | DRG 456 ==
LOC: REC 09:57 → MS1 17:10 → ICU 03-18 22:15 → 6WM 03-20 19:28 → MS1 03-22 19:49
PROVIDERS: ADMIT Specialist; ATTEND Specialist
PROC: 0ST20ZZ Resection of Lumbar Vertebral Disc, Open Approach (ICD-10-PCS; 2019-03-15)
PROC: 4A11X4G Monitoring of Peripheral Nervous Electrical Activity, Intraoperative, External Approach (ICD-10-PCS; 2019-03-15)
PROC: 0SG10A0 Fusion of 2 or more Lumbar Vertebral Joints with Interbody Fusion Device, Anterior Approach, Anterior Column, Open Approach (ICD-10-PCS; principal; 2019-03-15 12:00)
PROC: 0SG30A0 Fusion of Lumbosacral Joint with Interbody Fusion Device, Anterior Approach, Anterior Column, Open Approach (ICD-10-PCS; 2019-03-16)
PROC: 0SG00A0 Fusion of Lumbar Vertebral Joint with Interbody Fusion Device, Anterior Approach, Anterior Column, Open Approach (ICD-10-PCS; 2019-03-16)
PROC: 0ST40ZZ Resection of Lumbosacral Disc, Open Approach (ICD-10-PCS; 2019-03-16)
PROC: 0ST20ZZ Resection of Lumbar Vertebral Disc, Open Approach (ICD-10-PCS; 2019-03-16)
PROC: 4A11X4G Monitoring of Peripheral Nervous Electrical Activity, Intraoperative, External Approach (ICD-10-PCS; 2019-03-16)
DX: M41.86 Other forms of scoliosis, lumbar region (principal); I26.99 Other pulmonary embolism without acute cor pulmonale; I82.4Z2 Acute embolism and thrombosis of unspecified deep veins of left distal lower extremity; M48.062 Spinal stenosis, lumbar region with neurogenic claudication; E03.9 Hypothyroidism, unspecified; E78.5 Hyperlipidemia, unspecified; K59.03 Drug induced constipation; D50.9 Iron deficiency anemia, unspecified; G47.33 Obstructive sleep apnea (adult) (pediatric); F34.1 Dysthymic disorder; F41.9 Anxiety disorder, unspecified; G62.9 Polyneuropathy, unspecified; E29.1 Testicular hypofunction
CPT/HCPCS: 36600; 71045; 71275; 72100; 72114; 73721; 80048; 80053; 82550; 82553; 82728; 82803; 83540; 83605; 83735; 84484; 85025; 85610; 85730; 86850; 86900; 86901; 86920; 86999; 87081; 87086; 88304; 93005; 93306; 93970; 94664; 97110; 97116; 97162; 97164; 97530; C1713; J0360; J0690; J1100; J1170; J1200; J1644; J1885; J2175; J2250; J2370; J2405; J2710; J2765; J3010; J3370; J3480; J7120; P9045; Q9967; V2790